=== PATIENT | female | born 1950 | race Caucasian/White ===

== ENCOUNTER 2019-07-02 10:44 | Inpatient (IN) ==
[2019-07-02] MEDS ORDERED: SODIUM CHLORIDE 0.9% 500 ML IV ONE (10:56)
--- NOTE | 2019-07-02 11:21 | XRay Report ---
XR chest 1V portable CLINICAL HISTORY: SEPSIS dyspnea COMPARISON STUDY: No previous studies for comparison. FINDINGS: The bones soft tissues and hemidiaphragms are normal. The cardiomediastinal silhouette is n ormal. The lungs are clear. The pulmonary vasculature is normal. IMPRESSION: Negative chest. ACT 112: Negative or not required by law. The above report was generated using voice recognition software. It may contain grammatical, syntax or spelling errors. Electronically signed by: Florentino Breaux M.D. 07/02/2019 11:19 AM
[2019-07-02 12:00] LABS: Basophils # (auto) 0.02 K/uL (0-0.2); Basophils % (auto) 0.3 %; Eosinophils % (auto) 1.7 %; Hemoglobin 11.5 g/dL (12.0-16.0); Immature Granulocytes # (auto) 0.01 K/uL (0.00-0.02); Immature Granulocytes % (auto) 0.2 %; Lymphocytes # (auto) 0.68 K/uL (1.2-3.4); Lymphocytes % (auto) 11.6 %; Mean Corpuscular Hemoglobin 28.5 pg (25-34); Mean Corpuscular Hgb Conc 31.9 g/dL (32-36); Mean Corpuscular Volume 89.3 fL (80-100); Mean Platelet Volume 10.5 fL (7.4-10.4); Monocytes % (auto) 6.8 %; Neutrophils # (auto) 4.63 K/uL (1.4-6.5); Neutrophils % (auto) 79.4 %; Platelet Count 268 K/uL (130-400); RDW Coefficient of Variation 16.6 % (11.5-14.5); RDW Standard Deviation 54.9 fL (36.4-46.3); Red Blood Count 4.03 M/uL (4.2-5.4); White Blood Count 5.84 K/uL (4.8-10.8)
[2019-07-02 12:10] LABS: INR 1.2 (0.9-1.1); Partial Thromboplastin Time 26.6 Seconds (21.0-31.0); Prothrombin Time 11.7 Seconds (9.0-12.0)
[2019-07-02 12:21] LABS: Alanine Aminotransferase 17 U/L (12-78); Albumin Level 2.8 gm/dl (3.4-5.0); Aspartate Aminotransferase 18 U/L (15-37); BUN Creatinine Ratio 10.7 (10-20); Blood Urea Nitrogen 11 mg/dl (7-18); C Reactive Protein 0.99 mg/dl (0-0.29); Calcium 9.3 mg/dl (8.5-10.1); Carbon Dioxide 24 mmol/L (21-32); Chloride 110 mmol/L (98-107); Creatinine Clr Calc Pharmacy 48.1 ml/min; Est GFR (African American) 63.5; Est GFR (Non-African American) 54.8; Glucose 98 mg/dl (70-99); Magnesium 1.7 mg/dl (1.8-2.4); Potassium 4.3 mmol/L (3.5-5.1); Sodium 141 mmol/L (136-145)
[2019-07-02 12:26] LABS: Albumin Globulin Ratio 0.8 (0.9-2); Alkaline Phosphatase 100 U/L (45-117); Bilirubin,Total 0.4 mg/dl (0.2-1); Globulin 3.6 gm/dl (2.5-4.0); Total Protein 6.4 gm/dl (6.4-8.2); Troponin I < 0.015 ng/ml (0-0.045)
[2019-07-02 12:45] LABS: Appearance Urine Cloudy (Clear); Bacteria Urine Automated 4+ (Negative); Bilirubin Urine Negative (Negative); Blood Urine Negative (Negative); Color Urine Yellow; Epithelial Cell Urine Auto >30 /lpf (0-5); Glucose Urine UA Negative (Negative); Ketones Urine Negative (Negative); Leukocyte Esterase Urine 2+ (Negative); Nitrite Urine Positive (Negative); Protein Urine 1+ (Negative); Specific Gravity Urine 1.018 (1.000-1.030); Urobilinogen Urine Negative (Negative); WBC Urine Automated >30 /hpf (0-5)
[2019-07-02 13:08] LABS: Cast Urine Automated 0 /lpf (0-5)
[2019-07-02] MEDS ORDERED: cefTRIAXone SODIUM 1,000 MG/50 ML BAG IV STA (13:16)
[2019-07-02] MEDS ORDERED: SODIUM CHLORIDE 0.9% 1000ML 500 ML IV ONE (13:16)
[2019-07-02] MEDS ORDERED: PIPERACILL/TAZOBAC CONSULT ACTIVE PRN (13:25)
[2019-07-02] MEDS ORDERED: PIPERACILLIN/TAZOBACTAM 4.5 GM/120 ML BAG IV ONE (13:25)
--- NOTE | 2019-07-02 15:04 | History & Physical Report ---
Date of Service July 02, 2019 Assessment & Plan (1) Hypotension: Pt is 68 y/o F with PMH multiple myeloma, HTN, dyslipidemia, asthma, nocturnal hypoxia, MOHAN, migraines, depression, anxiety, h/o palpitations, sinus tachycardia presented to ER from cardiology office for hypotension. Today in cardiology office initial BP was 110/82 then 86/50 and pt was referred to ER. Pt reports chronic weakness, dizziness with sitting/standing and denies worsening. Poor oral intake In ER initial BP: 110/70 down to 96/67 up to 108/80. Initial P: 100 down to 85. R: 16, 98% on RA. DDX: dehydration, sepsis -In ER received 2L NSS -Current BP 105/73 -IVF -Monitor BP -Encourage oral fluid intake (2) Elevated lactic acid level: Denies known fever. Reports chronic chills. Denies urinary symptoms, cough, vomiting. Dx c-diff at outside hospital one week ago. In ER lactate: 2.8 CXR: no acute findings Possible UTI on UA -Received 2L NSS, Zosyn in ER -IVF -Trend lactate -Blood cultures, urine culture pending -Zosyn -CBC, BMP in am (3) Possible urinary tract infection: Possible UTI on UA. Pt asymptomatic -Urine culture pending -Zosyn for now (4) Weakness: Chronic weakness. Uses rolling walker to ambulate. Denies recent falls. -PT/OT eval (5) Palpitations: H/O palpitations and sinus tachycardia Current sinus rhythm and pulse in 80's -Continue metoprolol with BP holding parameters (6) Leg edema: Right leg edema greater than left -Obtain venous doppler to R/O DVT (7) Hypomagnesemia: Magnesium: 1.7 -Replace and monitor (8) C. difficile diarrhea: Reportedly diagnosed with C-diff at [facility] during recent admission 06/25/19 Reports decreased diarrhea past 5 days with one episode yesterday. Pt unsure if she is taking her oral vancomycin -Vancomycin 125mg po QID (9) Multiple myeloma: H/O Multiple myeloma. Follows with Dr Maldonado oncology [place] Thinks last chemo was one month ago -Acyclovir, pt thinks still taking -Monitor CBC, BMP (10) MOHAN (obstructive sleep apnea): (11) Nocturnal hypoxemia: Noncompliant with CPAP HS -Continue oxygen 3L nasal cannula HS (12) Asthma: No acute flare -Continue home inhalers, albuterol prn -Continue Singulair DVT Prophylaxis -Lovenox SQ Full ode as per discussion with pt Follows with Dr Herrera - [facility] for routine care Pt was seen and care coordinated with Dr Fitzgerald. See addendum History of Present Illness Chief Complaint: Hypotension Primary Care Provider: Dr Herrera Pt is 68 y/o F with PMH multiple myeloma, HTN, dyslipidemia, asthma, nocturnal hypoxia, MOHAN, migraines, depression, anxiety, h/o palpitations, sinus tachycardia presented to ER from cardiology office for hypotension. Pt was being seen at cardiology office for h/o sinus tachycardia and palpitations. It is reported that at her last oncology visit it was noted that her pulse was 120. Pt denies any recent palpations. Today in cardiology office initial BP was 110/82 then 86/50 and pt was referred to ER. Pt states chronic nausea which worsens with eating. Reports chronic abdominal pain, also worse with eating. Denies any increased abdominal pain. She admits has not been eating or drinking much for past couple of months since starting chemo. Reports only had sip juice to take her morning medications today. Pt reports chronic weakness, fatigue and dizziness worse with sitting up or standing. Denies syncope. Uses walker to ambulate and reports chronic SOB with ambulation and chronic leg weakness with ambulation. Denies increased weakness, fatigue, SOB, dizziness or nausea. Denies falls or syncope. She reports chronic intermittent chills for past couple of months. Denies any known fevers. It is reported that pt had hospitalization at [facility] in 03/2019 for BARBRA, hypercalcemia, hypokalemia, anemia thought secondary to chemo. Pt reports received 1 unit PRBCs at that time Pt also reports hospitalization at [facility] on 06/25/19-06/27/19 for dehydration, diarrhea. Pt reports was diagnosed with C-Diff and started on Vancomycin. Pt is unsure if she is still taking Vancomycin. She reports that she was discharged at her request secondary to wanting to be home for [place]. Pt also reports hospitalization at [facility] for dehydration and anemia and reports receiving 2 units PRBCs during that admission. Thinks this was in 05/2019. Pt states diarrhea has decreased and has had 1-2 episodes loose stools a day. Had 1 episode diarrhea yesterday and none yet today. Denies hematochezia. Pt states today noticed right leg seems bigger than left. Reports pain to bilateral calves. Denies increased SOB, CP. Denies diaphoresis, SINHA, vision changes, neck pain, CP, orthopnea, cough, sore throat, choking, otalgia, rhinorrhea, paresthesias, rashes, urinary symptoms. Allergies Allergy/AdvReac Type Severity Reaction Status Date / Time No Known Allergies Allergy Mild ? Unverified 07/02/19 12:12 Home Medications Home Medications Medication Instructions Recorded Confirmed Type acyclovir 400 mg PO DAILY 07/02/19 07/02/19 History albuterol sulfate 1 puff INHALATION Q6H PRN 07/02/19 07/02/19 History aspirin 81 mg PO QAM 07/02/19 07/02/19 History atorvastatin 40 mg PO DAILY 07/02/19 07/02/19 History ferrous gluconate 324 mg PO DAILY 07/02/19 07/02/19 History fluoxetine 40 mg PO QAM 07/02/19 07/02/19 History fluticasone furoate-vilanterol 1 inh INHALATION DAILY 07/02/19 07/02/19 History [Breo Ellipta] gabapentin 100 mg PO TID 07/02/19 07/02/19 History metoprolol succinate 12.5 mg PO QAM 07/02/19 07/02/19 History mirtazapine 15 mg PO HS 07/02/19 07/02/19 History montelukast 10 mg PO HS 07/02/19 07/02/19 History omeprazole 20 mg PO DAILY 07/02/19 07/02/19 History potassium chloride 20 meq PO BID 07/02/19 07/02/19 History tramadol 50 mg PO Q6H PRN 07/02/19 07/02/19 History vancomycin 125 mg PO QID 07/02/19 07/02/19 History Past Med/Surg History Medical History (Updated 07/02/19 @ 15:34 by Yesica Vora PA-C) Anemia Asthma Depression with anxiety Dyslipidemia Encounter for blood transfusion HTN (hypertension) Migraine Multiple myeloma Nocturnal hypoxemia MOHAN (obstructive sleep apnea) Palpitations Sinus tachycardia Tachycardia Surgical History H/O cataract removal with insertion of prosthetic lens S/P cholecystectomy S/P tubal ligation Family History (Updated 07/02/19 @ 15:22 by Yesica Vora PA-C) Other Cancer Hypertension Social History (Updated 07/02/19 @ 15:22 by Yesica Vora PA-C) Preferred Language: French Communication Ability: Effective current occupational status: retired Feels Safe at Home: Yes Smoking Status: Former smoker Hx Alcohol Use: No Hx Substance Use: No Review of Systems Review of Systems: All systems reviewed & are unremarkable except as noted in HPI & below Physical Exam Physical Exam: General: chronic ill appearing, appears older than stated age, no acute distress, overweight Head: normocephalic, atraumatic Eyes: PERRL, EOM's intact, conjunctiva non-injected, anicteric ENT: normal inspection external ears, nose, mucous membranes mildly dry Neck: supple, trachea midline Lungs: clear, no respiratory distress, no wheezing/rhonchi/rales CV: RRR, no murmur Abd: normal BS, soft, non-tender Ext: no cyanosis, Right leg edema greater than left leg, no leg erythema, bilateral calf tenderness to palpation Neuro: A&O x 3, no focal deficits noted, normal affect Skin: warm, dry Results & Data Vital Signs (Past 12 Hours) Vital Signs Temp Pulse Pulse Resp BP BP Pulse Ox 07/02/19 14:33 85 21 105/73 96 07/02/19 14:12 85 17 94/68 L 96 07/02/19 13:33 85 15 108/80 97 07/02/19 12:30 75 19 125/56 L 97 07/02/19 12:17 80 20 102/50 L 93 07/02/19 12:16 81 17 102/50 L 94 07/02/19 11:13 96 07/02/19 11:06 87 16 96/67 L 97 07/02/19 10:47 36.4 C L 100 H 16 110/70 98 Laboratory Results Short CBC 07/02/19 Range/Units 11:45 WBC 5.84 (4.8-10.8) K/uL Hgb 11.5 L (12.0-16.0) g/dL Hct 36.0 L (37-47) % Plt Count 268 (130-400) K/uL BMP 07/02/19 11:45 Sodium 141 Potassium 4.3 Chloride 110 H Carbon Dioxide 24 BUN 11 Creatinine 1.04 Glucose 98 Calcium 9.3 Cardiac Enzymes 07/02/19 Range/Units 11:45 Troponin I < 0.015 (0-0.045) ng/ml Liver Function 07/02/19 Range/Units 11:45 Total Bilirubin 0.4 (0.2-1) mg/dl AST 18 (15-37) U/L ALT 17 (12-78) U/L Alkaline Phosphatase 100 (45-117) U/L Albumin 2.8 L (3.4-5.0) gm/dl Urine 07/02/19 Range/Units 11:46 Urine Color Yellow Urine Appearance Cloudy A (Clear) Urine pH 7.0 (4.5-7.5) Ur Specific [place] 1.018 (1.000-1.030) Urine Protein 1+ H (Negative) Urine Glucose (UA) Negative (Negative) Diagnostic Findings CXR: IMPRESSION: Negative chest. ECG Rate (beats per minute): 86 Rhythm: sinus rhythm Code Status & VTE Plan VTE Prophylaxis Plan VTE Prophylaxis will be ordered: Yes Supervising Physician Co-Signing Physician Notes HISTORY: Record reviewed. Patient interviewed and examined in ED. Care coordinated with Yesica Vora PA-C. Please refer to her documentation for complete history. Briefly, 68 YO female with history of multiple myeloma. Per her history, extensive skeletal involvement. Was receiving chemotherapy (pt does not know meds), but discontinued because of side effects. Recent C diff colitis with improving symptoms on vancomycin. Seen in Cardiology clinic today and found to be hypotensive. Referred to ED for further evaluation and management. Denies fever, sinus symptoms, cough, dysuria. Diarrhea essentially resolved. EXAM: General- no distress; appears to be chronically ill Lungs- clear to auscultation; no respiratory distress Cardiovascular- RRR; no murmur; no gallop; no JVD; pretibial and pedal edema R > L Abdomen- + bowel sounds, soft, nontender Extremities- no cyanosis; no calf tenderness Neuro- alert, oriented Skin- warm & dry DATA: Hemoglobin 11.5, white count 5840, platelet count 268,000. Sodium 141, potassium 4.3, chloride 110, CO2 24, BUN 11, creatinine 1.04, random glucose 98, magnesium 1.7. LFTs normal. Serum lactate 2.8. Procalcitonin less than 0.05. UA demonstrates leukocyte esterase, nitrites, many WBCs, 5-10 RBCs, many epithelial cells, 4+ bacteria. Other lab studies as noted. Chest x-ray reviewed by the undersigned and formally interpreted by Radiology. Elevated right hemidiaphragm. No infiltrates, effusions, CHF. EKG performed at 1110 reviewed and demonstrated normal sinus rhythm at 90 / minute, baseline artifact, no acute ST or T wave abnormalities.. ASSESSMENT AND PLAN: Systolic BP's in ED 96-125. Does not meet criteria for SIRS / sepsis per current CMS guidelines (but would meet criteria per sepsis-2 definition). May have volume depletion from recent / resolving C diff diarrhea (although BUN and creatinine are normal). Adrenal insufficiency unlikely with normal Na & K. UA suggests possible UTI. Elevated lactate of 2.8 suggests possible sepsis, but procalcitonin normal. Blood and urine cultures obtained. Started on broad spectrum antibiotic coverage with piperacillin / tazobactam. Check repeat lactate within 6 hrs of presentation. No need for aggressive fluid resuscitation per ED vital signs and lactate < 4. Continue vancomycin for resolving C diff. Ongoing management of multiple myeloma per Hematology / Oncology. Continue usual analgesics. Poor functional status. PT / OT evals. Old records requested for more complete background info. Please refer to PAT Vora's documentation for discussion of other issues.
--- NOTE | 2019-07-02 16:32 | Ultrasound Report ---
BILATERAL LOWER EXTREMITY VENOUS DOPPLER HISTORY: Acute pain and swelling of the bilateral lower extremities edema right >left; Hx multiple m yeloma COMPARISON STUDY: None. FINDINGS: There is normal compressibility, flow, and augmentation within the left lower extremity ramin p venous system. Linear partially occlusive thrombus of the distal right popliteal vein and peroneal veins. No additional deep venous thrombosis of the right lower extremity. IMPRESSION: 1. Partially occlusive deep venous thrombosis of the right popliteal and peroneal veins. 2. No sonographic evidence of left lower extremity deep venous thrombosis. ACT 112: Negative or not required by law. Electronically signed by: Fernie Shipman M.D. 07/02/2019 4:30 PM
[2019-07-02] MEDS ORDERED: ENOXAPARIN INJ 40 MG/0.4 ML SYR SQ SCH (16:42)
[2019-07-02] MEDS ORDERED: ALBUTEROL HFA 8 GM INHALER INH PRN (16:42)
[2019-07-02] MEDS ORDERED: MAGNESIUM SULFATE / D5W 1 GM/100 ML BAG IV ONE (17:00)
[2019-07-02] MEDS ORDERED: NYSTATIN POWDER 15GM BTL EXT PRN (17:20)
[2019-07-02] MEDS: SODIUM CHLORIDE 0.9% 1000ML 1,000 ML IV SCH (17:22)
--- NOTE | 2019-07-02 17:54 | Emergency Department Note ---
Entered by Opal Slater acting as a scribe for History of Present Illness General Chief complaint: Hypotension Stated complaint: LOW BLOOD PRESSURE, SENT BY Time Seen by Provider: 07/02/19 10:50 Source: patient and family (daughter) History of Present Illness Onset (ago): hour(s) (this morning) Location: head Pain Consistency: + other (episode) Quality: + other (hypotension) Associated symptoms: + denies other symptoms (fever, abdominal pain, vomiting, chest pain or black or bloody stools) and + other (shortness of breath lying flat or with exertion, frequent urination, swelling and pain in legs) The patient is a 68 year old female that is presenting to the Emergency Room with complaints of an episode of hypotension that was found while the patient was at her manager lpn appointment this morning. The patients daughter reports that the patient was seen by Dr. Muñiz, Cardiology, and was found to have a blood pressure 88/50. Her daughter notes that the patients blood pressure was 110 systolic just prior to that reading. Her daughter states that the patient was referred to the ED as the manager lpn was concerned for anemia. The patient denies any fever, abdominal pain, vomiting, chest pain or black or bloody stools. She states that she has some swelling and pain in her legs. She endorses some shortness of breath with lying flat or with exertion. The patient notes that she has been urinating more frequently despite a low fluid intake. Her daughter reports that the patient has a history of multiple myeloma diagnosed in 03/2019 and is being followed by an oncologist in [place]. Her daughter notes that the patient has been receiving chemotherapy and takes medications for this. The patient states that her last chemotherapy treatment was 2 months ago. Her daughter reports that the patient has received blood transfusions in the past. Her daughter notes that the patient is followed by cardiology for intermittent tachycardia found during an oncology appointment. The patient reports that she has been feeling ill intermittently since starting her chemotherapy treatment. She denies any history of hypertension or diabetes. She notes that she has a history of cataract removal, cholecystectomy, and tubal ligation. The patient states that she has a recent history of C. difficle that she is currently being treated for. She denies any diarrhea today but notes that she had an episode last night. She denies smoking any tobacco. She states that she is followed by Dr. Herrera, PCP, but notes that she has not been to an appointment recently. Home Medications Home Medications Medication Instructions Recorded Confirmed Type acyclovir 400 mg PO DAILY 07/02/19 07/02/19 History albuterol sulfate 1 puff INHALATION Q6H PRN 07/02/19 07/02/19 History aspirin 81 mg PO QAM 07/02/19 07/02/19 History atorvastatin 40 mg PO DAILY 07/02/19 07/02/19 History ferrous gluconate 324 mg PO DAILY 07/02/19 07/02/19 History fluoxetine 40 mg PO QAM 07/02/19 07/02/19 History fluticasone furoate-vilanterol 1 inh INHALATION DAILY 07/02/19 07/02/19 History [Breo Ellipta] gabapentin 100 mg PO TID 07/02/19 07/02/19 History metoprolol succinate 12.5 mg PO QAM 07/02/19 07/02/19 History mirtazapine 15 mg PO HS 07/02/19 07/02/19 History montelukast 10 mg PO HS 07/02/19 07/02/19 History omeprazole 20 mg PO DAILY 07/02/19 07/02/19 History potassium chloride 20 meq PO BID 07/02/19 07/02/19 History tramadol 50 mg PO Q6H PRN 07/02/19 07/02/19 History vancomycin 125 mg PO QID 07/02/19 07/02/19 History Allergies Allergy/AdvReac Type Severity Reaction Status Date / Time No Known Allergies Allergy Mild ? Unverified 07/02/19 12:12 Past Med/Surg History Medical History (Updated 07/02/19 @ 15:34 by Yesica Vora PA-C) Anemia Asthma Depression with anxiety Dyslipidemia Encounter for blood transfusion HTN (hypertension) Migraine Multiple myeloma Nocturnal hypoxemia MOHAN (obstructive sleep apnea) Palpitations Sinus tachycardia Tachycardia Surgical History H/O cataract removal with insertion of prosthetic lens S/P cholecystectomy S/P tubal ligation Family History (Updated 07/02/19 @ 15:22 by Yesica Vora PA-C) Other Cancer Hypertension Social History (Updated 07/02/19 @ 15:22 by Yesica Vora PA-C) Preferred Language: Latvian Communication Ability: Effective Sales Record Clerk Required: No Beliefs That Will Affect Care: None Current Living Situation: Spouse current occupational status: retired Other Information That Helps Us Care for You: No Feels Safe at Home: Yes Safety Concerns: Feels Safe At This Time Smoking Status: Former smoker Hx Alcohol Use: No Hx Substance Use: No Review of Systems See HPI for pertinent positives & negatives. and A total of 10 systems reviewed and were otherwise negative Physical Exam Vital Signs Vital Signs - 24 hr 07/02/19 10:47 07/02/19 11:06 07/02/19 11:13 Temperature 36.4 C L Temperature Source Oral Pulse Rate 100 H 87 Pulse Rate [Left] Pulse Rate from SpO2 Sensor 87 Pulse Rhythm [Left] Respiratory Rate 16 16 Respiratory Effort / Characteristics Respiratory Depth Normal Respiratory Pattern Blood Pressure 110/70 96/67 L Blood Pressure [Left Arm] Blood Pressure Mean 83 72 Blood Pressure Mean [Left Arm] Pulse Oximetry 98 97 96 Oxygen Delivery Method Room Air Sepsis Recent Fever Within 48 Hours No Sepsis New/Unexplained Change in Mental Status No Sepsis Action Taken by Nursing No Action Required 07/02/19 12:16 07/02/19 12:17 07/02/19 12:30 Temperature Temperature Source Pulse Rate 80 75 Pulse Rate [Left] 81 Pulse Rate from SpO2 Sensor 81 78 Pulse Rhythm [Left] Regular Respiratory Rate 17 20 19 Respiratory Effort / Characteristics Non-Labored Respiratory Depth Normal Respiratory Pattern Regular Blood Pressure 102/50 L 125/56 L Blood Pressure [Left Arm] 102/50 L Blood Pressure Mean 81 94 Blood Pressure Mean [Left Arm] 67 Pulse Oximetry 94 93 97 Oxygen Delivery Method Room Air Sepsis Recent Fever Within 48 Hours Sepsis New/Unexplained Change in Mental Status Sepsis Action Taken by Nursing 07/02/19 13:33 07/02/19 14:12 07/02/19 14:33 Temperature Temperature Source Pulse Rate 85 85 85 Pulse Rate [Left] Pulse Rate from SpO2 Sensor 85 85 84 Pulse Rhythm [Left] Respiratory Rate 15 17 21 Respiratory Effort / Characteristics Respiratory Depth Respiratory Pattern Blood Pressure 108/80 94/68 L 105/73 Blood Pressure [Left Arm] Blood Pressure Mean 91 79 79 Blood Pressure Mean [Left Arm] Pulse Oximetry 97 96 96 Oxygen Delivery Method Sepsis Recent Fever Within 48 Hours Sepsis New/Unexplained Change in Mental Status Sepsis Action Taken by Nursing GENERAL: Patient is awake, alert, and in no acute distress. Frail appearing. Does not appear to be uncomfortable. EYES: The conjunctivae are clear. The pupils are round and reactive. EARS, NOSE, MOUTH AND THROAT: The nose is without any evidence of any deformity. Mucous membranes are moist.Tongue is midline NECK: The neck is nontender and supple. RESPIRATORY: Diminished breath sounds bilaterally with rales at both bases. No tachypnea or conversational dyspnea noted. CARDIOVASCULAR: Tachycardic rate but regular rhythm. No definite murmur noted. GASTROINTESTINAL: The abdomen is soft. Bowel sounds are present in all quadrants. Abdomen is nontender. MUSCULOSKELETAL/EXTREMITIES: There is no evidence of gross deformity. Full range of motion is noted in the hips and shoulders. SKIN: There is no obvious evidence of any rash. There are no petechiae, pallor or cyanosis noted. Trace pedal edema bilaterally. NEUROLOGIC: Patient is awake alert and oriented x3. Generalized weakness. Course Course 1053:The patient was evaluated in room C09. A complete history and physical examination was performed. 1325: Upon reevaluation, the patient is resting comfortably. I discussed laboratory and radiographic results with the patient. She verbalized agreement of the treatment plan. The patient will be evaluated for further management and care. 1338: I discussed the patients case with NATHALIE Perry, who will evaluate the patient for further management and care with Dr. Fitzgerald as the attending physician. Administered Medications Sodium Chloride (Nss 1000ml) 1,000 mls @ 100 mls/hr IV .Q10H ОЛЕГ Stop: 07/03/19 12:41 Last Admin: 07/02/19 17:22 Dose: 100 mls/hr Documented by: [id number] Magnesium Sulfate/Dextrose (Magnesium Sulfate / D5w) 1 gm in 100 mls @ 100 mls/hr IV ONE ONE Stop: 07/02/19 17:59 Last Admin: 07/02/19 17:22 Dose: 100 mls/hr Documented by: [id number] Discontinued Medications Enoxaparin Sodium (Lovenox) 40 mg SQ Q24H ОЛЕГ Stop: 08/01/19 16:41 Last Admin: 07/02/19 17:30 Dose: Not Given Documented by: [id number] Sodium Chloride (Nss) 500 mls @ 999 mls/hr IV .Q31M ONE Stop: 07/02/19 11:26 Last Infusion: 07/02/19 13:24 Dose: 0 mls/hr Documented by: [id number] Admin: 07/02/19 12:30 Dose: 999 mls/hr Documented by: [id number] Ceftriaxone Sodium (Rocephin) 1,000 mg in 50 mls @ 100 mls/hr IV NOW STA Stop: 07/02/19 13:45 Last Admin: 07/02/19 14:03 Dose: Not Given Documented by: [id number] Sodium Chloride (Nss 1000ml) 500 mls @ 999 mls/hr IV .Q31M ONE Stop: 07/02/19 13:46 Last Infusion: 07/02/19 14:03 Dose: 0 mls/hr Documented by: [id number] Admin: 07/02/19 13:31 Dose: 999 mls/hr Documented by: [id number] Piperacillin Sod/Tazobactam Sod (Zosyn) 4.5 gm in 120 mls @ 240 mls/hr IV NOW ONE Stop: 07/02/19 13:54 Last Infusion: 07/02/19 14:41 Dose: 0 mls/hr Documented by: [id number] Admin: 07/02/19 14:08 Dose: 240 mls/hr Documented by: [id number] Medical Decision Making Differential Diagnosis Differential Diagnosis includes but is not limited to dehydration, stroke, anemia, hypoglycemia, hyponatremia, hypernatremia, urinary tract infection, pneumonia, bronchitis, sepsis, gastroenteritis, additional abdominal pathology, metabolic abnormalities and infections. Medical Records Attestation: I reviewed the patient's medical records. Home Medications Current Medication List: was personally reviewed by me Laboratory Data Attestation: I reviewed the patient's lab results. Result diagrams: 07/02/19 11:45 07/02/19 11:45 Lab Results 07/02/19 07/02/19 07/02/19 Range/Units 11:45 11:45 11:45 WBC 5.84 (4.8-10.8) K/uL RBC 4.03 L (4.2-5.4) M/uL Hgb 11.5 L (12.0-16.0) g/dL Hct 36.0 L (37-47) % MCV 89.3 (80-100) fL MCH 28.5 (25-34) pg MCHC 31.9 L (32-36) g/dL RDW Std Deviation 54.9 H (36.4-46.3) fL RDW Coeff of Alejandro 16.6 H (11.5-14.5) % Plt Count 268 (130-400) K/uL MPV 10.5 H (7.4-10.4) fL Immature Gran % (Auto) 0.2 % Neut % (Auto) 79.4 % Lymph % (Auto) 11.6 % [place] % (Auto) 6.8 % Eos % (Auto) 1.7 % Baso % (Auto) 0.3 % Immature Gran # (Auto) 0.01 (0.00-0.02) K/uL Neut # (Auto) 4.63 (1.4-6.5) K/uL Lymph # (Auto) 0.68 L (1.2-3.4) K/uL [place] # (Auto) 0.40 (0.11-0.59) K/uL Eos # (Auto) 0.10 (0-0.5) K/uL Baso # (Auto) 0.02 (0-0.2) K/uL ESR 57 H (0-21) mm/hr PT (9.0-12.0) Seconds INR (0.9-1.1) APTT (21.0-31.0) Seconds PTT Ratio Sodium (136-145) mmol/L Potassium (3.5-5.1) mmol/L Chloride (98-107) mmol/L Carbon Dioxide (21-32) mmol/L Anion Gap (3-11) BUN (7-18) mg/dl Creatinine (0.6-1.2) mg/dl Est Cr Clr Drug Dosing ml/min Est GFR ( Amer) Est GFR (Non-Af Amer) BUN/Creatinine Ratio (10-20) Glucose (70-99) mg/dl Lactate (0.4-2.0) mmol/L Calcium (8.5-10.1) mg/dl Magnesium (1.8-2.4) mg/dl Total Bilirubin (0.2-1) mg/dl AST (15-37) U/L ALT (12-78) U/L Alkaline Phosphatase (45-117) U/L Troponin I (0-0.045) ng/ml C-Reactive Protein (0-0.29) mg/dl Total Protein (6.4-8.2) gm/dl Albumin (3.4-5.0) gm/dl Globulin (2.5-4.0) gm/dl Albumin/Globulin Ratio (0.9-2) Procalcitonin < 0.05 (0-0.5) ng/ml Urine Color Urine Appearance (Clear) Urine pH (4.5-7.5) Ur Specific Gardiner (1.000-1.030) Urine Protein (Negative) Urine Glucose (UA) (Negative) Urine Ketones (Negative) Urine Blood (Negative) Urine Nitrite (Negative) Urine Bilirubin (Negative) Urine Urobilinogen (Negative) Ur Leukocyte Esterase (Negative) Urine WBC (Auto) (0-5) /hpf Urine RBC (Auto) (0-4) /hpf U Hyaline Cast (Auto) (0-5) /lpf U Epithel Cells (Auto) (0-5) /lpf Urine Bacteria (Auto) (Negative) Urine Yeast 07/02/19 07/02/19 07/02/19 Range/Units 11:45 11:45 11:45 WBC (4.8-10.8) K/uL RBC (4.2-5.4) M/uL Hgb (12.0-16.0) g/dL Hct (37-47) % MCV (80-100) fL MCH (25-34) pg MCHC (32-36) g/dL RDW Std Deviation (36.4-46.3) fL RDW Coeff of Alejandro (11.5-14.5) % Plt Count (130-400) K/uL MPV (7.4-10.4) fL Immature Gran % (Auto) % Neut % (Auto) % Lymph % (Auto) % [place] % (Auto) % Eos % (Auto) % Baso % (Auto) % Immature Gran # (Auto) (0.00-0.02) K/uL Neut # (Auto) (1.4-6.5) K/uL Lymph # (Auto) (1.2-3.4) K/uL [place] # (Auto) (0.11-0.59) K/uL Eos # (Auto) (0-0.5) K/uL Baso # (Auto) (0-0.2) K/uL ESR (0-21) mm/hr PT 11.7 (9.0-12.0) Seconds INR 1.2 H (0.9-1.1) APTT 26.6 (21.0-31.0) Seconds PTT Ratio 1.0 Sodium 141 (136-145) mmol/L Potassium 4.3 (3.5-5.1) mmol/L Chloride 110 H (98-107) mmol/L Carbon Dioxide 24 (21-32) mmol/L Anion Gap 7.0 (3-11) BUN 11 (7-18) mg/dl Creatinine 1.04 (0.6-1.2) mg/dl Est Cr Clr Drug Dosing 48.1 ml/min Est GFR ( Amer) 63.5 Est GFR (Non-Af Amer) 54.8 BUN/Creatinine Ratio 10.7 (10-20) Glucose 98 (70-99) mg/dl Lactate 2.8 H* (0.4-2.0) mmol/L Calcium 9.3 (8.5-10.1) mg/dl Magnesium 1.7 L (1.8-2.4) mg/dl Total Bilirubin 0.4 (0.2-1) mg/dl AST 18 (15-37) U/L ALT 17 (12-78) U/L Alkaline Phosphatase 100 (45-117) U/L Troponin I < 0.015 (0-0.045) ng/ml C-Reactive Protein 0.99 H (0-0.29) mg/dl Total Protein 6.4 (6.4-8.2) gm/dl Albumin 2.8 L (3.4-5.0) gm/dl Globulin 3.6 (2.5-4.0) gm/dl Albumin/Globulin Ratio 0.8 L (0.9-2) Procalcitonin (0-0.5) ng/ml Urine Color Urine Appearance (Clear) Urine pH (4.5-7.5) Ur Specific Gardiner (1.000-1.030) Urine Protein (Negative) Urine Glucose (UA) (Negative) Urine Ketones (Negative) Urine Blood (Negative) Urine Nitrite (Negative) Urine Bilirubin (Negative) Urine Urobilinogen (Negative) Ur Leukocyte Esterase (Negative) Urine WBC (Auto) (0-5) /hpf Urine RBC (Auto) (0-4) /hpf U Hyaline Cast (Auto) (0-5) /lpf U Epithel Cells (Auto) (0-5) /lpf Urine Bacteria (Auto) (Negative) Urine Yeast 07/02/19 Range/Units 11:46 WBC (4.8-10.8) K/uL RBC (4.2-5.4) M/uL Hgb (12.0-16.0) g/dL Hct (37-47) % MCV (80-100) fL MCH (25-34) pg MCHC (32-36) g/dL RDW Std Deviation (36.4-46.3) fL RDW Coeff of Alejandro (11.5-14.5) % Plt Count (130-400) K/uL MPV (7.4-10.4) fL Immature Gran % (Auto) % Neut % (Auto) % Lymph % (Auto) % [place] % (Auto) % Eos % (Auto) % Baso % (Auto) % Immature Gran # (Auto) (0.00-0.02) K/uL Neut # (Auto) (1.4-6.5) K/uL Lymph # (Auto) (1.2-3.4) K/uL [place] # (Auto) (0.11-0.59) K/uL Eos # (Auto) (0-0.5) K/uL Baso # (Auto) (0-0.2) K/uL ESR (0-21) mm/hr PT (9.0-12.0) Seconds INR (0.9-1.1) APTT (21.0-31.0) Seconds PTT Ratio Sodium (136-145) mmol/L Potassium (3.5-5.1) mmol/L Chloride (98-107) mmol/L Carbon Dioxide (21-32) mmol/L Anion Gap (3-11) BUN (7-18) mg/dl Creatinine (0.6-1.2) mg/dl Est Cr Clr Drug Dosing ml/min Est GFR ( Amer) Est GFR (Non-Af Amer) BUN/Creatinine Ratio (10-20) Glucose (70-99) mg/dl Lactate (0.4-2.0) mmol/L Calcium (8.5-10.1) mg/dl Magnesium (1.8-2.4) mg/dl Total Bilirubin (0.2-1) mg/dl AST (15-37) U/L ALT (12-78) U/L Alkaline Phosphatase (45-117) U/L Troponin I (0-0.045) ng/ml C-Reactive Protein (0-0.29) mg/dl Total Protein (6.4-8.2) gm/dl Albumin (3.4-5.0) gm/dl Globulin (2.5-4.0) gm/dl Albumin/Globulin Ratio (0.9-2) Procalcitonin (0-0.5) ng/ml Urine Color Yellow Urine Appearance Cloudy A (Clear) Urine pH 7.0 (4.5-7.5) Ur Specific Gardiner 1.018 (1.000-1.030) Urine Protein 1+ H (Negative) Urine Glucose (UA) Negative (Negative) Urine Ketones Negative (Negative) Urine Blood Negative (Negative) Urine Nitrite Positive A (Negative) Urine Bilirubin Negative (Negative) Urine Urobilinogen Negative (Negative) Ur Leukocyte Esterase 2+ H (Negative) Urine WBC (Auto) >30 H (0-5) /hpf Urine RBC (Auto) 5-10 H (0-4) /hpf U Hyaline Cast (Auto) 0 (0-5) /lpf U Epithel Cells (Auto) >30 H (0-5) /lpf Urine Bacteria (Auto) 4+ H (Negative) Urine Yeast Not Reportable Imaging Data Radiologist's Impression: Radiology results as stated below per my review and the radiologist's interpretation: XR chest 1V portable CLINICAL HISTORY: SEPSIS dyspnea COMPARISON STUDY: No previous studies for comparison. FINDINGS: The bones soft tissues and hemidiaphragms are normal. The cardiomediastinal silhouette is normal. The lungs are clear. The pulmonary vasculature is normal. IMPRESSION: Negative chest. ACT 112: Negative or not required by law. The above report was generated using voice recognition software. It may contain grammatical, syntax or spelling errors. Electronically signed by: Florentino Breaux M.D. 07/02/2019 11:19 AM ECG Data Attestation: I personally reviewed and interpreted this ECG as follows: Indication: + weakness Rate (beats per minute): 86 Rhythm: + normal sinus ECG ST segments: no ST depression and no ST elevation ECG Findings: no PACs and no PVCs Comparison ECG Date: no prior available Blood Pressure Blood Pressure Findings: Normal blood pressure MDM Narrative The patient is a 68-year-old female who presented to the emergency department for an evaluation of hypotension. The patient has had ongoing generalized weakness. She was noted to have hypotension at the manager lpn office today and was sent to the emergency department for further evaluation. The patient has been having some degree of diarrhea. She is also been treated for multiple myeloma. I discussed the patient's laboratory and radiographic studies with her. She responded well to IV hydration. She was found no signs of urinary tract infection on urinalysis. I discussed the patient's condition with the on- call [facility] hospitalist group. They have agreed to evaluate the patient in the emergency department for further management and disposition. The patient was feeling much better on subsequent reevaluation. Impression & Plan Sepsis secondary to UTI, Generalized weakness Discharge Plan Visit Data *Final* Discharge Date/Time: 07/02/19 15:31 Chief Complaint: Hypotension Stated Complaint: LOW BLOOD PRESSURE, SENT BY ED Provider: Sukhi Vega Discharge Problem: Sepsis secondary to UTI, Generalized weakness Patient Disposition: Admitted As Inpatient Discharge Instructions Interventions: ED Discharge Assessment Last Done: 07/02/19 15:31 The scribe's documentation has been prepared under my direction and personally reviewed by me in its entirety. I confirm that the note above accurately reflects all work, treatment, procedures, and medical decision making performed by me.
[2019-07-02] MEDS: RASPBERRY SYRUP 5 ML UDP PO SCH ×2 (18:18→23:25)
[2019-07-02] MEDS: ENOXAPARIN 80 MG/0.8 ML SYR SQ SCH (18:18)
[2019-07-02] MEDS: VANCOMYCIN HCL 125 MG/2.5ML SOLN PO SCH ×2 (18:19→23:25)
[2019-07-02] MEDS: PIPERACILLIN/TAZOBACTAM 3.375 GM in DEXTROSE 5% 100 ML IV SCH (20:11)
[2019-07-02] MEDS: ACETAMINOPHEN 325 MG TAB PO PRN (20:11)
[2019-07-02] MEDS: FLUTICASONE/SALMETEROL (ADVAIR) 500/50 INH 14 PUFF INH SCH (20:12)
[2019-07-02] MEDS: MONTELUKAST SODIUM 10 MG TABLET PO SCH (20:13)
[2019-07-02] MEDS: POTASSIUM CHLORIDE 20 MEQ TABCR PO SCH (20:13)
[2019-07-02] MEDS: GABAPENTIN 100 MG CAP PO SCH (20:13)
[2019-07-02] MEDS: MIRTAZAPINE TAB 15 MG TAB PO SCH (20:14)
[2019-07-02] MEDS ORDERED: ENOXAPARIN 1 MG/KG SC SCH (21:00)
[2019-07-03 04:26] LABS: Hematocrit (blood only) 30.1 % (37-47); Hemoglobin 9.4 g/dL (12.0-16.0); Mean Corpuscular Hemoglobin 28.4 pg (25-34); Mean Corpuscular Hgb Conc 31.2 g/dL (32-36); Mean Corpuscular Volume 90.9 fL (80-100); Mean Platelet Volume 9.9 fL (7.4-10.4); Platelet Count 217 K/uL (130-400); RDW Coefficient of Variation 16.5 % (11.5-14.5); RDW Standard Deviation 54.9 fL (36.4-46.3); Red Blood Count 3.31 M/uL (4.2-5.4); White Blood Count 4.77 K/uL (4.8-10.8)
[2019-07-03] MEDS: SODIUM CHLORIDE 0.9% 1000ML 1,000 ML IV SCH ×2 (04:38→15:30)
[2019-07-03] MEDS: PIPERACILLIN/TAZOBACTAM 3.375 GM in DEXTROSE 5% 100 ML IV SCH ×3 (04:38→20:50)
[2019-07-03 04:48] LABS: BUN Creatinine Ratio 11.8 (10-20); Calcium 7.7 mg/dl (8.5-10.1); Creatinine Clr Calc Pharmacy 53.5 ml/min; Est GFR (African American) 72.7; Est GFR (Non-African American) 62.7; Magnesium 1.8 mg/dl (1.8-2.4); Potassium 3.7 mmol/L (3.5-5.1)
[2019-07-03] MEDS: RASPBERRY SYRUP 5 ML UDP PO SCH ×3 (06:29→18:05)
[2019-07-03] MEDS: ENOXAPARIN 80 MG/0.8 ML SYR SQ SCH ×2 (06:29→21:34)
[2019-07-03] MEDS: VANCOMYCIN HCL 125 MG/2.5ML SOLN PO SCH ×3 (06:29→18:05)
[2019-07-03] MEDS ORDERED: METOPROLOL SUCC 25MG EXT REL TAB PO SCH (09:00)
[2019-07-03] MEDS: FLUTICASONE/SALMETEROL (ADVAIR) 500/50 INH 14 PUFF INH SCH ×2 (10:17→21:34)
[2019-07-03] MEDS: ASPIRIN 81 MG ECTAB PO SCH (10:18)
[2019-07-03] MEDS: FERROUS GLUCONATE 324 MG TAB PO SCH (10:18)
[2019-07-03] MEDS: METOPROLOL SUCC 25MG EXT REL TAB PO SCH (10:19)
[2019-07-03] MEDS: FLUOXETINE HCL 20 MG CAP PO SCH (10:19)
[2019-07-03] MEDS: POTASSIUM CHLORIDE 20 MEQ TABCR PO SCH ×2 (10:19→20:53)
[2019-07-03] MEDS: ATORVASTATIN 40 MG TAB PO SCH (10:20)
[2019-07-03] MEDS: PANTOprazole 40 MG TAB PO SCH (10:20)
[2019-07-03] MEDS: GABAPENTIN 100 MG CAP PO SCH ×3 (10:20→20:52)
[2019-07-03] MEDS: ACYCLOVIR 400 MG TAB PO SCH (10:21)
--- NOTE | 2019-07-03 13:03 | Hospitalist Progress Note ---
Date of Service July 03, 2019 Assessment & Plan (1) Hypotension: Hypotension resolved. Last was at 8 PM last night. BP supine 121/64, heart rate 87 BP sitting 109/65 heart rate 93 BP standing 116/63 heart rate 99 Give IV fluids. Monitor blood pressure and volume status. Monitor total fluid intake and output Blood cultures negative 24 hours Urine culture growing multiple organisms. Resend urine culture. Continue Zosyn for now Hb dropped from 11.5 yesterday to 9.4 today No reported bleeding. This could be dilutional as patient got 2 L of IV fluids in the ER. We will continue to monitor (2) Elevated lactic acid level: In ER lactate: 2.8 CXR: no acute findings Possible UTI on UA Received 2L NSS, Zosyn in ER Elevated lactate is resolved to 1.2. (3) Possible urinary tract infection: Possible UTI on UA. Patient reporting right lower abdominal discomfort but no dysuria, frequency, urgency, discharge Urine culture growing multiple organisms. Resend urine culture. Continue Zosyn for now and discontinue if negative (4) Right leg DVT: Currently on Lovenox 70 mg every 12 Tried to reach patient's packaging clerk/oncologist Dr. Maldonado to discuss anti coagulation options but was not available Physician taking care of patient tomorrow will try again (5) Weakness: Chronic weakness. Uses rolling walker to ambulate. PT/OT eval (6) Palpitations: H/O palpitations and sinus tachycardia Current sinus rhythm and pulse in 80's Continue metoprolol with BP holding parameters (7) Hypomagnesemia: Magnesium 1.7 on admission. Today 1.8 Continue to monitor and replete appropriately (8) C. difficile diarrhea: Reportedly diagnosed with C-diff at [facility] during recent admission 06/25/19 Reports decreased diarrhea past 5 days with one episode yesterday. Had one loose stool this morning. Pt unsure if she is taking her oral vancomycin Continue vancomycin 125mg po QID for now (9) Multiple myeloma: H/O Multiple myeloma. Follows with Dr Maldonado oncology [place] Stated last chemo was one month ago (10) MOHAN (obstructive sleep apnea): (11) Nocturnal hypoxemia: Noncompliant with CPAP HS Continue oxygen 3L nasal cannula HS (12) Asthma: Stable Continue home inhalers Full code as per discussion with pt Follows with Dr Javier Herrera [facility] for routine care Subjective Patient seen and examined. Had one loose stool this morning. Reports right lower abdominal discomfort with some nausea. Reported some dizziness while laying down but this morning that resolved Denies any fevers, chills Denies any chest pain, shortness of breath Denied dysuria, frequency, urgency Review of Systems Review of Systems: All systems reviewed and unremarkable except for mentioned above. Physical Exam Physical Exam: General: Well hydrated. No distress Eyes: PERRL, conjunctivae normal, EOM intact bilaterally ENMT: External ear and nose normal, oropharynx normal Neck: Normal visual inspection, no tracheal deviation, no swelling noted Respiratory: Normal respiratory effort, no respiratory distress, lungs c lear to auscultation, no crackles and no wheezes Cardiovascular: Pulse is RRR. S1 S2 Gastrointestinal (Abdomen): Abdomen is not distended, soft, non-tender to palpation, no guarding, no palpable hepatosplenomegaly, normal bowel sounds Musculoskeletal: Trace leg edema Genitourinary: No CVA tenderness Skin: Intercrural erythematous skin, some erythema over perineum Neurologic: Alert and oriented x 3, No focal weakness, sensation grossly intact Results & Data Vital Signs (Past 12 Hours) Vital Signs Temp Pulse Resp BP Pulse Ox 07/03/19 08:00 36.4 C L 88 20 112/66 97 07/03/19 04:00 36.8 C 76 16 129/92 95 Laboratory Results Abnormal lab results 07/03/19 07/03/19 Range/Units 04:12 04:12 WBC 4.77 L (4.8-10.8) K/uL RBC 3.31 L (4.2-5.4) M/uL Hgb 9.4 L (12.0-16.0) g/dL Hct 30.1 L (37-47) % MCHC 31.2 L (32-36) g/dL RDW Std Deviation 54.9 H (36.4-46.3) fL RDW Coeff of Alejandro 16.5 H (11.5-14.5) % Chloride 114 H (98-107) mmol/L Calcium 7.7 L D (8.5-10.1) mg/dl
[2019-07-03] MEDS ORDERED: VANCOMYCIN CONSULT ACTIVE PRN (17:44)
[2019-07-03] MEDS ORDERED: VANCOMYCIN HCL 1,750 MG in SODIUM CHLORIDE 0.9% 500 ML IV ONE (18:30)
[2019-07-03] MEDS: MONTELUKAST SODIUM 10 MG TABLET PO SCH (20:52)
[2019-07-03] MEDS: MIRTAZAPINE TAB 15 MG TAB PO SCH (20:52)
[2019-07-04] MEDS: VANCOMYCIN HCL 125 MG/2.5ML SOLN PO SCH ×4 (00:29→17:24)
[2019-07-04] MEDS: RASPBERRY SYRUP 5 ML UDP PO SCH ×4 (00:29→17:24)
[2019-07-04] MEDS: SODIUM CHLORIDE 0.9% 1000ML 1,000 ML IV SCH (02:42)
[2019-07-04] MEDS: PIPERACILLIN/TAZOBACTAM 3.375 GM in DEXTROSE 5% 100 ML IV SCH ×3 (04:33→20:42)
[2019-07-04 07:21] LABS: Hematocrit (blood only) 34.2 % (37-47); Hemoglobin 10.6 g/dL (12.0-16.0); Mean Corpuscular Hemoglobin 28.2 pg (25-34); Mean Platelet Volume 10.6 fL (7.4-10.4); Platelet Count 274 K/uL (130-400); RDW Coefficient of Variation 16.2 % (11.5-14.5); RDW Standard Deviation 54.7 fL (36.4-46.3); Red Blood Count 3.76 M/uL (4.2-5.4)
[2019-07-04] MEDS: ENOXAPARIN 80 MG/0.8 ML SYR SQ SCH ×2 (07:34→20:42)
[2019-07-04] MEDS: FLUTICASONE/SALMETEROL (ADVAIR) 500/50 INH 14 PUFF INH SCH ×2 (07:34→20:43)
[2019-07-04] MEDS: ASPIRIN 81 MG ECTAB PO SCH (07:35)
[2019-07-04] MEDS: POTASSIUM CHLORIDE 20 MEQ TABCR PO SCH ×2 (07:35→20:44)
[2019-07-04] MEDS: FERROUS GLUCONATE 324 MG TAB PO SCH (07:35)
[2019-07-04] MEDS: FLUOXETINE HCL 20 MG CAP PO SCH (07:36)
[2019-07-04] MEDS: ATORVASTATIN 40 MG TAB PO SCH (07:36)
[2019-07-04] MEDS: GABAPENTIN 100 MG CAP PO SCH ×3 (07:36→20:44)
[2019-07-04] MEDS: PANTOprazole 40 MG TAB PO SCH (07:36)
[2019-07-04] MEDS: ACYCLOVIR 400 MG TAB PO SCH (07:37)
[2019-07-04] MEDS: METOPROLOL SUCC 25MG EXT REL TAB PO SCH (07:37)
[2019-07-04 08:08] LABS: BUN Creatinine Ratio 6.4 (10-20); Calcium 8.8 mg/dl (8.5-10.1); Creatinine Clr Calc Pharmacy 61.4 ml/min; Est GFR (African American) 84.6; Magnesium 1.6 mg/dl (1.8-2.4)
[2019-07-04] MEDS ORDERED: MAGNESIUM SULFATE / D5W 1 GM/100 ML BAG IV ONE (09:00)
--- NOTE | 2019-07-04 09:19 | Pharmacy Report ---
Pharmacy Abx Dose Short Note - Date of Service July 04, 2019 - Assessment & Plan Assessment 68 year old F receiving Vancomycin for treatment of bacteremia and Zosyn for UTI. Day # 2 of antimicrobial therapy. * 1 of 2 blood cultures from 07/02 growing GPC. * Blood cultures from 07/03 pending Plan Vancomycin for treatment of bacteremia Vancomycin IV * Estimated PK Parameters: Vd 0.7 L/kg, Tommy 0.055 hr-1, t1/2 12.6 hr * Loading dose: 1750 mg (25 mg/kg) * Maintenance dose: 1250 mg IV (17.5 mg/kg) every 18 hours * Goal trough level for bacteremia : 15 to 20 mcg/mL * Trough level ordered for 07/06/19 @1530 Piperacillin/tazobactam for UTI * 4.5 g bolus administered over 30 minutes, then 3.375 g IV extended infusion every 8 hours for CrCl greater than 20 mL/min Pharmacy will continue to follow and will adjust dose/frequency as necessary. Thank you.
[2019-07-04] MEDS: VANCOMYCIN HCL 1,250 MG in SODIUM CHLORIDE 0.9% 250 ML IV SCH (10:54)
[2019-07-04] MEDS ORDERED: VANCOMYCIN HCL 1,500 MG in SODIUM CHLORIDE 0.9% 500 ML IV SCH (14:00)
--- NOTE | 2019-07-04 17:13 | Hospitalist Progress Note ---
Date of Service July 04, 2019 Assessment & Plan (1) Hypotension: Hypotension likely due to GI loses R/O infectious source other than C diff Negative Orthostatics BP improved with IV fluids Blood cultures: 1/2 Coag Negative Staph--Likely contamination Repeat Blood Cx:pending Urine culture growing multiple organisms On IV Vanco, Zosyn empirically Titrate Abx as able Hb drop likely dilutional from IV fluids Monitor CBC (2) Elevated lactic acid level: lactate levels normalized with IV fluids CXR: no acute findings Possible UTI on UA on Abx as above (3) Possible urinary tract infection: Possible UTI on UA. Urine culture growing multiple organisms. Continue Zosyn for now (4) Right leg DVT: Currently on therapeutic Lovenox Plan to discuss with clinical care coordinator/oncologist Dr. Maldonado for anticoagulation options (5) Weakness: Chronic weakness. Uses rolling walker to ambulate. PT/OT eval (6) Palpitations: H/O palpitations and sinus tachycardia Continue metoprolol (7) Hypomagnesemia: Due to GI loses Replete electrolytes as needed (8) C. difficile diarrhea: Reportedly diagnosed with C-diff at [facility] during recent admission 06/25/19 No history of C. difficile in the past as per patient Diarrhea slowly improving Continue p.o. vancomycin If abdominal pain does not improve, consider repeating CT ABD imaging. (9) Multiple myeloma: H/O Multiple myeloma. Follows with Dr Maldonado oncology [place] Stated last chemo was one month ago (10) MOHAN (obstructive sleep apnea): (11) Nocturnal hypoxemia: Noncompliant with CPAP HS Continue oxygen 3L nasal cannula HS (12) Asthma: Stable As of exacerbation Continue home inhalers DVT Px: Lovenox SQ Code Status Full code Disposition PT/OT prior to discharge Follows with Dr Herrera - Javier [facility] for routine care Subjective Patient is seen and examined at bedside Had 2 loose BMs today Reports mild abdominal discomfort Also reports nausea but no vomiting Denies any chest pain, SOB, dizziness Offers no other complaints Review of Systems Review of Systems: All systems reviewed & are unremarkable except as noted in HPI & below Physical Exam Physical Exam: Physical Exam: Vitals signs as noted above General Appearance:Moderately built and nourished, no apparent distress Head: normocephalic, Atraumatic Eyes: normal inspection, EOMI Neck: supple, Trachea midline Respiratory/Chest: Decreased breath sounds, CTA Cardiovascular: S1, S2, No murmur Abdomen/GI:Soft, mild RLQ tender, Bowel sounds present Extremities/Musculoskelatal:normal inspection, R>L B/L LE edema Neurologic/Psych:AAOX3, grossly no focal neurological deficits Skin: normal color, warm Results & Data Vital Signs (Past 12 Hours) Vital Signs Temp Pulse Pulse Resp BP Pulse Ox 07/04/19 15:49 36.6 C 88 17 121/76 97 07/04/19 10:59 36.5 C 94 H 19 105/71 99 07/04/19 08:00 88 07/04/19 07:12 36.8 C 91 H 19 97 Laboratory Results Short CBC 07/04/19 Range/Units 06:50 WBC 3.80 L (4.8-10.8) K/uL Hgb 10.6 L (12.0-16.0) g/dL Hct 34.2 L (37-47) % Plt Count 274 (130-400) K/uL BMP 07/04/19 06:50 Sodium 143 Potassium 4.0 Chloride 115 H Carbon Dioxide 20 L BUN 5 L D Creatinine 0.82 Glucose 95 Calcium 8.8
[2019-07-04] MEDS: MONTELUKAST SODIUM 10 MG TABLET PO SCH (20:44)
[2019-07-04] MEDS: MIRTAZAPINE TAB 15 MG TAB PO SCH (20:44)
[2019-07-05] MEDS: RASPBERRY SYRUP 5 ML UDP PO SCH ×4 (00:32→16:19)
[2019-07-05] MEDS: VANCOMYCIN HCL 125 MG/2.5ML SOLN PO SCH ×4 (00:32→16:19)
[2019-07-05] MEDS: SODIUM CHLORIDE 0.9% 1000ML 1,000 ML IV SCH ×3 (00:32→14:20)
[2019-07-05] MEDS: ACETAMINOPHEN 325 MG TAB PO PRN (00:33)
[2019-07-05] MEDS: VANCOMYCIN HCL 1,250 MG in SODIUM CHLORIDE 0.9% 250 ML IV SCH (04:45)
[2019-07-05] MEDS: PIPERACILLIN/TAZOBACTAM 3.375 GM in DEXTROSE 5% 100 ML IV SCH ×3 (05:29→21:09)
[2019-07-05 06:23] LABS: Hemoglobin 9.2 g/dL (12.0-16.0); Mean Corpuscular Hemoglobin 28.6 pg (25-34); Mean Corpuscular Hgb Conc 31.7 g/dL (32-36); Mean Corpuscular Volume 90.1 fL (80-100); Mean Platelet Volume 10.4 fL (7.4-10.4); Platelet Count 196 K/uL (130-400); RDW Coefficient of Variation 16.4 % (11.5-14.5); RDW Standard Deviation 53.2 fL (36.4-46.3); Red Blood Count 3.22 M/uL (4.2-5.4); White Blood Count 3.23 K/uL (4.8-10.8)
[2019-07-05 06:57] LABS: BUN Creatinine Ratio 4.9 (10-20); Calcium 8.2 mg/dl (8.5-10.1); Creatinine Clr Calc Pharmacy 32.2 ml/min; Est GFR (African American) 37.7; Est GFR (Non-African American) 32.5; Magnesium 1.7 mg/dl (1.8-2.4); Potassium 4.1 mmol/L (3.5-5.1)
[2019-07-05] MEDS: ENOXAPARIN 80 MG/0.8 ML SYR SQ SCH (07:52)
[2019-07-05] MEDS: POTASSIUM CHLORIDE 20 MEQ TABCR PO SCH ×2 (07:53→21:13)
[2019-07-05] MEDS: ACYCLOVIR 400 MG TAB PO SCH (07:53)
[2019-07-05] MEDS: ATORVASTATIN 40 MG TAB PO SCH (07:54)
[2019-07-05] MEDS: PANTOprazole 40 MG TAB PO SCH (07:54)
[2019-07-05] MEDS: FLUTICASONE/SALMETEROL (ADVAIR) 500/50 INH 14 PUFF INH SCH ×2 (07:54→21:10)
[2019-07-05] MEDS: ASPIRIN 81 MG ECTAB PO SCH (07:54)
[2019-07-05] MEDS: GABAPENTIN 100 MG CAP PO SCH ×3 (07:54→21:13)
[2019-07-05] MEDS: FLUOXETINE HCL 20 MG CAP PO SCH (07:54)
[2019-07-05] MEDS: FERROUS GLUCONATE 324 MG TAB PO SCH (07:54)
[2019-07-05] MEDS: METOPROLOL SUCC 25MG EXT REL TAB PO SCH (07:54)
[2019-07-05] MEDS ORDERED: MAGNESIUM SULFATE / D5W 1 GM/100 ML BAG IV ONE (08:15)
[2019-07-05 09:08] LABS: INR 1.2 (0.9-1.1); Partial Thromboplastin Ratio 1.5; Partial Thromboplastin Time 39.9 Seconds (21.0-31.0); Prothrombin Time 11.9 Seconds (9.0-12.0)
[2019-07-05] MEDS: HEPARIN SODIUM/DEXTROSE 25,000 UNITS/500 ML BAG IV SCH (14:19)
[2019-07-05] MEDS: Heparin IV Standard *NO* Bolus IV SCH ×2 (14:48→15:36)
--- NOTE | 2019-07-05 16:47 | Hospitalist Progress Note ---
Date of Service July 05, 2019 Assessment & Plan (1) Hypotension: Hypotension likely due to GI loses R/O infectious source other than C diff Negative Orthostatics BP variable Blood cultures: 1/2 Coag Negative Staph--Likely contamination Repeat Blood Cx:Negative to date Urine culture growing multiple organisms Discontinue IV Vanco Plan to discontinue Zosyn in 1-2 days if cultures remain negative Hb drop likely dilutional from IV fluids Monitor CBC Acute Kidney Injury Cr:1.6 today Discontinued IV Lovenox and Vancomycin Continue IV fluids Avoid Nephrotoxic agents as able Monitor renal function (2) Elevated lactic acid level: lactate levels normalized with IV fluids CXR: no acute findings Possible UTI on UA on Abx as above (3) Possible urinary tract infection: Possible UTI on UA. Urine culture growing multiple organisms. Continue Zosyn for now (4) Right leg DVT: Lovenox discontinued due to BARBRA Discussed with ceramic coater machine/oncologist Dr. Maldonado for anticoagulation options on 07/05/19 Started on IV Heparin for now Likely to be transitioned to Lovenox (renally adjusted) Vs Eliquis upon discharge (5) Weakness: Chronic weakness. Uses rolling walker to ambulate. PT/OT eval (6) Palpitations: H/O palpitations and sinus tachycardia Continue metoprolol (7) Hypomagnesemia: Due to GI loses Replete electrolytes as needed (8) C. difficile diarrhea: Reportedly diagnosed with C-diff at [facility] during recent admission 06/25/19 No history of C. difficile in the past as per patient Diarrhea slowly improving Continue p.o. vancomycin (9) Multiple myeloma: H/O Multiple myeloma. Follows with Dr Maldonado oncology [place] Stated last chemo was one month ago recommended to hold Revlimid due to acute infection Needs follow up with Oncology upon discharge (10) MOHAN (obstructive sleep apnea): (11) Nocturnal hypoxemia: Noncompliant with CPAP HS Continue oxygen 3L nasal cannula HS (12) Asthma: Stable As of exacerbation Continue home inhalers DVT Px: on IV heparin Code Status Full code Disposition Plan to discharge to rehab facility when medically stable Follows with Dr Javier Herrera [facility] for routine care Subjective Patient is seen and examined at bedside No diarrhea today Reports nausea earlier today Denies vomiting, chest pain, SOB, dizziness Discussed with Patient's Oncologist today Offers no other complaints Review of Systems Review of Systems: All systems reviewed & are unremarkable except as noted in HPI & below Physical Exam Physical Exam: Physical Exam: Vitals signs as noted above General Appearance:Moderately built and nourished, no apparent distress Head: normocephalic, Atraumatic Eyes: normal inspection, EOMI Neck: supple, Trachea midline Respiratory/Chest: Decreased breath sounds, R basal minimal crackles Cardiovascular: S1, S2, No murmur Abdomen/GI:Soft, mild RLQ tender, Bowel sounds present Extremities/Musculoskelatal:normal inspection, R>L B/L LE edema Neurologic/Psych:AAOX3, grossly no focal neurological deficits Skin: normal color, warm Results & Data Vital Signs (Past 12 Hours) Vital Signs Temp Pulse Resp BP Pulse Ox 07/05/19 15:42 36.3 C L 83 18 92/59 L 100 07/05/19 11:49 36.4 C L 87 19 111/73 100 07/05/19 07:27 36.7 C 88 19 138/81 99 Laboratory Results Short CBC 07/05/19 Range/Units 06:02 WBC 3.23 L (4.8-10.8) K/uL Hgb 9.2 L (12.0-16.0) g/dL Hct 29.0 L (37-47) % Plt Count 196 (130-400) K/uL BMP 07/05/19 06:02 Sodium 144 Potassium 4.1 Chloride 118 H Carbon Dioxide 20 L BUN 8 Creatinine 1.60 H D Glucose 82 Calcium 8.2 L
[2019-07-05 20:57] LABS: Partial Thromboplastin Time 108.7 Seconds (21.0-31.0)
[2019-07-05] MEDS: MONTELUKAST SODIUM 10 MG TABLET PO SCH (21:12)
[2019-07-05] MEDS: MIRTAZAPINE TAB 15 MG TAB PO SCH (21:13)
[2019-07-06] MEDS: SODIUM CHLORIDE 0.9% 1000ML 1,000 ML IV SCH ×2 (00:30→10:52)
[2019-07-06] MEDS: VANCOMYCIN HCL 125 MG/2.5ML SOLN PO SCH ×5 (00:30→23:53)
[2019-07-06] MEDS: RASPBERRY SYRUP 5 ML UDP PO SCH ×5 (00:30→23:53)
[2019-07-06 03:28] LABS: Hematocrit (blood only) 29.3 % (37-47); Hemoglobin 9.5 g/dL (12.0-16.0); Mean Corpuscular Hemoglobin 29.1 pg (25-34); Mean Corpuscular Hgb Conc 32.4 g/dL (32-36); Mean Corpuscular Volume 89.9 fL (80-100); Mean Platelet Volume 10.5 fL (7.4-10.4); Platelet Count 205 K/uL (130-400); RDW Coefficient of Variation 16.5 % (11.5-14.5); RDW Standard Deviation 55.3 fL (36.4-46.3); Red Blood Count 3.26 M/uL (4.2-5.4); White Blood Count 3.54 K/uL (4.8-10.8)
[2019-07-06 03:52] LABS: Partial Thromboplastin Ratio 4.1
[2019-07-06 03:53] LABS: Calcium 8.5 mg/dl (8.5-10.1); Creatinine Clr Calc Pharmacy 23.2 ml/min; Est GFR (African American) 25.4; Est GFR (Non-African American) 21.9; Magnesium 1.9 mg/dl (1.8-2.4); Potassium 4.4 mmol/L (3.5-5.1)
[2019-07-06 03:54] LABS: Partial Thromboplastin Time 110.2 Seconds (21.0-31.0)
[2019-07-06] MEDS: PIPERACILLIN/TAZOBACTAM 3.375 GM in DEXTROSE 5% 100 ML IV SCH (04:22)
[2019-07-06] MEDS: PANTOprazole 40 MG TAB PO SCH (07:44)
[2019-07-06] MEDS: FLUTICASONE/SALMETEROL (ADVAIR) 500/50 INH 14 PUFF INH SCH ×2 (07:44→20:55)
[2019-07-06] MEDS: GABAPENTIN 100 MG CAP PO SCH ×3 (07:44→20:56)
[2019-07-06] MEDS: FLUOXETINE HCL 20 MG CAP PO SCH (07:44)
[2019-07-06] MEDS: ACYCLOVIR 400 MG TAB PO SCH (07:45)
[2019-07-06] MEDS: ASPIRIN 81 MG ECTAB PO SCH (07:45)
[2019-07-06] MEDS: METOPROLOL SUCC 25MG EXT REL TAB PO SCH (07:45)
[2019-07-06] MEDS: ATORVASTATIN 40 MG TAB PO SCH (07:45)
[2019-07-06] MEDS: POTASSIUM CHLORIDE 20 MEQ TABCR PO SCH ×2 (07:45→20:56)
[2019-07-06] MEDS: FERROUS GLUCONATE 324 MG TAB PO SCH (07:45)
--- NOTE | 2019-07-06 09:18 | Ultrasound Report ---
ULTRASOUND KIDNEYS AND BLADDER CLINICAL HISTORY: Acute renal insufficiency. COMPARISON STUDY: No priors. TECHNIQUE: Real-time, grayscale, and color flow sonography of the kidneys and bladder is performed. I mages are reviewed in the transverse and longitudinal planes. FINDINGS: Kidneys: The kidneys demonstrate cortical atrophy. The right kidney measures 10.0 cm in length and th e left kidney measures 9.7 cm in length. There is no hydronephrosis. No shadowing renal calculi are i dentified. There is no sonographic evidence of contour deforming renal mass lesion. No perinephric fl uid is identified. Bladder: The bladder is largely decompressed and grossly unremarkable. Ureteral jets were not seen. IMPRESSION: 1. The kidneys demonstrate cortical atrophy and are without hydronephrosis. 2. The bladder was decompressed and grossly unremarkable. ACT 112: Negative or not required by law. Electronically signed by: Carlos Chopra M.D. 07/06/2019 9:16 AM
--- NOTE | 2019-07-06 09:41 | Nephrology Consultation ---
Date of Consultation July 06, 2019 Assessment & Plan (1) BARBRA (acute kidney injury): nonoliguric ischemic atn versus atn from vanco toxicity. baseline creatinine 0.9; at baseline on 07/02 presentation. then 07/05 up abruptly to 1.6, today to 2.2. not oliguric. did have 4 doses vancomycin IV on 07/03, then 2 doses on 07/04, and 1 dose on 07/05 at 0500; no vanco level on file; could not add to labs from this am so ordered stat 1800 vanco level 07/06 -f/u vanco level -check uacm, prot/creat > ordered -daily bmp -cont nephrotoxin avoidance Present on Admission?: No (2) Hypotension: -her C diff at outside facility [facility] was negative; however pt on po vanco per oncology OP recommendations -reluctant to stop current BB dose d/t relative a fib and would continue -changed NS to normosol to lower hyperchloremia -would evaluate her for adrenal insufficiency but her hypoalbuminemia makes test results impossible to interpret reliably: she could have chronic tertiary adrenal insufficiency from repeated glucocorticoid exposure for CA care; consider empiric 3 mg daily prednisone and 0.1 mg daily fludrocortisone; observe for now -get reliable count of BM daily if possible Present on Admission?: Yes History of Present Illness Reason for Consultation: BARBRA Requesting Physician: Dr Santiago Attending Physician: Mansoor Santiago MD History of Present Illness 68 y/o F whom I'm asked to see for BARBRA after she was admitted here on 07/02 for orthostatic hypotension and generalized weakness noted in cardiology clinic and found to have R popliteal DVT. PMH includes multiple myeloma diagnosed february 2019, HTN, MOHAN, HL, depression/anxiety, hx sinus tachycardia Multiple admissions this fall/winter, including 03/2019 for BARBRA, elevated CA, low K, anemia from CTX; [facility] May 2019 per pt for dehydration, anemia; [facility] 06/25-06/27 for dehydration and diarrhea. Since presentation ongoing 1- 2 loose bm daily. Her baseline creatinine prior to recent MM dx was about 1.1 per outside records. She has been getting tx at [facility] for MM w/ velcade, dexamethazone, most recently 06/18; also on monthly zometa. Creat was 0.9 at recent [facility] d/c and 1.0 on presentation here. On 07/05, her creatinine doubled to 1.6; today up to 2.2. She is getting NS at 100 mL /hr started on 07/03. No IV contrast this admission. her SBP has been on the soft side, ranging from 90s to 110s. she is on RA w/ HR in 90s consistently. she has been afebrile. She has been maintained on her home dose of metoprolol LA 12.5 mg daily. Allergies Allergy/AdvReac Type Severity Reaction Status Date / Time No Known Allergies Allergy Mild ? Unverified 07/02/19 12:12 Home Medications Home Medications Medication Instructions Recorded Confirmed Type acyclovir 400 mg PO DAILY 07/02/19 07/02/19 History albuterol sulfate 1 puff INHALATION Q6H PRN 07/02/19 07/02/19 History aspirin 81 mg PO QAM 07/02/19 07/02/19 History atorvastatin 40 mg PO DAILY 07/02/19 07/02/19 History ferrous gluconate 324 mg PO DAILY 07/02/19 07/02/19 History fluoxetine 40 mg PO QAM 07/02/19 07/02/19 History fluticasone furoate-vilanterol 1 inh INHALATION DAILY 07/02/19 07/02/19 History [Breo Ellipta] gabapentin 100 mg PO TID 07/02/19 07/02/19 History metoprolol succinate 12.5 mg PO QAM 07/02/19 07/02/19 History mirtazapine 15 mg PO HS 07/02/19 07/02/19 History montelukast 10 mg PO HS 07/02/19 07/02/19 History omeprazole 20 mg PO DAILY 07/02/19 07/02/19 History potassium chloride 20 meq PO BID 07/02/19 07/02/19 History tramadol 50 mg PO Q6H PRN 07/02/19 07/02/19 History vancomycin 125 mg PO QID 07/02/19 07/02/19 History Patient History Medical History (Updated 07/06/19 @ 18:18 by Juana Cardenas MD, PhD) Anemia Asthma Depression with anxiety Dyslipidemia Encounter for blood transfusion HTN (hypertension) Migraine Multiple myeloma Nocturnal hypoxemia MOHAN (obstructive sleep apnea) Palpitations Sinus tachycardia Tachycardia Surgical History H/O cataract removal with insertion of prosthetic lens S/P cholecystectomy S/P tubal ligation Family History (Updated 07/02/19 @ 15:22 by Yesica Vora PA-C) Other Cancer Hypertension Social History (Updated 07/02/19 @ 15:22 by Yesica Vora PA-C) Preferred Language: Slovak Communication Ability: Effective Inspector Watch Assembly Required: No Beliefs That Will Affect Care: None Current Living Situation: Spouse current occupational status: retired Other Information That Helps Us Care for You: No Feels Safe at Home: Yes Safety Concerns: Feels Safe At This Time Smoking Status: Former smoker Hx Alcohol Use: No Hx Substance Use: No Review of Systems Review of Systems: All systems reviewed & are unremarkable except as noted in HPI & below Constitutional: + fatigue, + weakness and + anorexia Cardiovascular: + edema; no orthopnea and no palpitations Gastrointestinal: + early satiety Genitourinary: no dysuria, no difficulty urinating, no urinary frequency and no urinary incontinence Integumentary: no rash and no non-healing lesions Physical Exam Constitutional: well developed and well nourished; no acute distress (sitting up in chair on RA) Eyes: EOM intact bilaterally ENMT: Ears: no external ear abnormality Nose: no external nose abnormality Mouth: + dry oral mucous membranes Neck: no nuchal rigidity Respiratory: normal respiratory effort Auscultation: + diminished lung sounds Cardiovascular: Rate/Rhythm: regular rate and regular rhythm Extremities: + edema (R>L) Gastrointestinal (Abdomen): Inspection/Auscultation: normal bowel sounds Percussion/Palpation: abdomen soft; abdomen nontender Musculoskeletal: Extremities: strength 5/5 throughout Skin: no rashes, warm and dry Neurologic: grant, fluent speech, no tremor Psychiatric: A+Ox3, euthymic affect Speech: normal rate/rhythm/volume of speech Genitourinary: no hernandez Results & Data Vital Signs (Past 12 Hours) Vital Signs Temp Pulse Pulse Resp BP Pulse Ox 07/06/19 06:30 36.8 C 89 19 119/83 97 07/06/19 04:17 36.5 C 88 21 110/74 96 07/05/19 23:59 82 07/05/19 23:34 36.3 C L 85 20 122/79 99 Laboratory Results 07/06/19 03:08 07/06/19 03:08 Diagnostic Findings renal u/s today: unremarkable fo acute or chronic process
[2019-07-06 10:21] LABS: Partial Thromboplastin Ratio 3.1
[2019-07-06 10:23] LABS: Partial Thromboplastin Time 83.1 Seconds (21.0-31.0)
[2019-07-06] MEDS: ONDANSETRON INJ 2 MG/ML 2 ML VIAL IV PRN (10:52)
[2019-07-06] MEDS ORDERED: VANCOMYCIN TROUGH ONE ×2 (13:30→15:30)
[2019-07-06] MEDS: HEPARIN SODIUM/DEXTROSE 25,000 UNITS/500 ML BAG IV SCH (14:13)
[2019-07-06 17:41] LABS: Partial Thromboplastin Ratio 2.2
[2019-07-06 17:46] LABS: Partial Thromboplastin Time 59.6 Seconds (21.0-31.0)
--- NOTE | 2019-07-06 19:03 | Hospitalist Progress Note ---
Date of Service July 06, 2019 Assessment & Plan (1) Hypotension: Hypotension likely due to GI loses R/O infectious source other than C diff Negative Orthostatics ? Adrenal insufficiency BP variable Blood cultures: 1/2 Coag Negative Staph--Likely contamination Repeat Blood Cx:Negative to date Urine culture growing multiple organisms Discontinue IV Vanco Received Zosyn for UTI Monitor CBC Acute Kidney Injury Ischemic ATN Vs Vanco toxicity Cr:1.6 >>2.2 IV Lovenox and Vancomycin discontinued Renal USD:The kidneys demonstrate cortical atrophy and are without hydronephrosis. The bladder was decompressed and grossly unremarkable. Follow urine studies Continue IV fluids Avoid Nephrotoxic agents as able Monitor renal function Appreciate nephrology input (2) Elevated lactic acid level: lactate levels normalized with IV fluids CXR: no acute findings Possible UTI on UA/Cx (3) Possible urinary tract infection: Possible UTI on UA. Urine culture growing multiple organisms. Received Zosyn (4) Right leg DVT: Lovenox discontinued due to BARBRA Discussed with video technician/oncologist Dr. Maldnoado for anticoagulation options on 07/05/19 Continue IV Heparin for now Likely to be transitioned to Lovenox (renally adjusted) Vs Eliquis upon discharge if renal function improves (5) Weakness: Chronic weakness. Uses rolling walker to ambulate. PT/OT eval (6) Palpitations: H/O palpitations and sinus tachycardia Continue metoprolol (7) Hypomagnesemia: Due to GI loses Replete electrolytes as needed (8) C. difficile diarrhea: Reportedly diagnosed with C-diff at [facility] during recent admission 06/25/19 No history of C. difficile in the past as per patient Diarrhea slowly improving Continue p.o. vancomycin (9) Multiple myeloma: H/O Multiple myeloma. Follows with Dr Maldonado oncology [place] Stated last chemo was one month ago recommended to hold Revlimid due to acute infection Needs follow up with Oncology upon discharge (10) MOHAN (obstructive sleep apnea): (11) Nocturnal hypoxemia: Noncompliant with CPAP HS Continue oxygen 3L nasal cannula HS (12) Asthma: Stable As of exacerbation Continue home inhalers DVT Px: on IV heparin Code Status Full code Disposition Plan to discharge to rehab facility when medically stable Follows with Dr Javier Herrera [facility] for routine care Subjective Patient is seen and examined at bedside Had 3 loose bowel movements today Has nausea but no vomiting--chronic for many months as per patient Denies chest pain, SOB, dizziness Creatinine level slightly worsened today Renal ultrasound no acute change Review of Systems Review of Systems: All systems reviewed & are unremarkable except as noted in HPI & below Physical Exam Physical Exam: Physical Exam: Vitals signs as noted above General Appearance:Moderately built and nourished, no apparent distress Head: normocephalic, Atraumatic Eyes: normal inspection, EOMI Neck: supple, Trachea midline Respiratory/Chest: Decreased breath sounds, R basal minimal crackles Cardiovascular: S1, S2, No murmur Abdomen/GI:Soft, non tender, Bowel sounds present Extremities/Musculoskelatal:normal inspection, R>L B/L LE edema Neurologic/Psych:AAOX3, grossly no focal neurological deficits Skin: normal color, warm Results & Data Vital Signs (Past 12 Hours) Vital Signs Temp Pulse Pulse Resp BP Pulse Ox 07/06/19 15:33 36.8 C 90 19 99/68 L 97 07/06/19 15:20 89 07/06/19 11:56 36.8 C 86 18 93/63 L 98 Laboratory Results Short CBC 07/06/19 Range/Units 03:08 WBC 3.54 L (4.8-10.8) K/uL Hgb 9.5 L (12.0-16.0) g/dL Hct 29.3 L (37-47) % Plt Count 205 (130-400) K/uL BMP 07/06/19 03:08 Sodium 142 Potassium 4.4 Chloride 117 H Carbon Dioxide 21 BUN 11 Creatinine 2.22 H D Glucose 97 Calcium 8.5
[2019-07-06] MEDS: NORMOSOL-R 1,000 ML IV SCH (19:30)
[2019-07-06] MEDS: LACTOBACILLUS ACIDOPHILUS (FLORANEX) TAB PO SCH (20:55)
[2019-07-06] MEDS: MONTELUKAST SODIUM 10 MG TABLET PO SCH (20:57)
[2019-07-06] MEDS: MIRTAZAPINE TAB 15 MG TAB PO SCH (20:57)
[2019-07-06] MEDS: ACETAMINOPHEN 325 MG TAB PO PRN (23:53)
[2019-07-07] MEDS: NORMOSOL-R 1,000 ML IV SCH (03:55)
[2019-07-07 04:56] LABS: Partial Thromboplastin Ratio 2.4
[2019-07-07] MEDS: RASPBERRY SYRUP 5 ML UDP PO SCH ×4 (05:01→23:19)
[2019-07-07] MEDS: VANCOMYCIN HCL 125 MG/2.5ML SOLN PO SCH ×4 (05:01→23:19)
[2019-07-07 05:04] LABS: Partial Thromboplastin Time 64.4 Seconds (21.0-31.0)
[2019-07-07 05:06] LABS: Appearance Urine Cloudy (Clear); Bilirubin Urine Negative (Negative); Blood Urine 1+ (Negative); Color Urine Yellow; Epithelial Cell Urine Auto >30 /lpf (0-5); Glucose Urine UA Negative (Negative); Ketones Urine Negative (Negative); Leukocyte Esterase Urine 2+ (Negative); Nitrite Urine Negative (Negative); Protein Urine Negative (Negative); Specific Gravity Urine 1.005 (1.000-1.030); Urobilinogen Urine Negative (Negative)
[2019-07-07 05:06] LABS: BUN Creatinine Ratio 4.8 (10-20); Calcium 8.1 mg/dl (8.5-10.1); Creatinine Clr Calc Pharmacy 20.1 ml/min; Est GFR (African American) 20.9; Magnesium 1.7 mg/dl (1.8-2.4); Potassium 4.9 mmol/L (3.5-5.1)
[2019-07-07 05:18] LABS: Bacteria Urine Automated 1+ (Negative); RBC Urine Automated 0-4 /hpf (0-4); WBC Urine Automated >30 /hpf (0-5)
[2019-07-07 05:21] LABS: Creatinine Urine Random 13.4 mg/dl; Protein Creatinine Ratio Urine 0.5 (0-0.2); Total Protein Urine Random 6.4 mg/dl (0-11.9)
[2019-07-07] MEDS: METOPROLOL SUCC 25MG EXT REL TAB PO SCH (08:37)
[2019-07-07] MEDS: LACTOBACILLUS ACIDOPHILUS (FLORANEX) TAB PO SCH ×4 (08:38→19:44)
[2019-07-07] MEDS: GABAPENTIN 100 MG CAP PO SCH ×3 (08:38→19:45)
[2019-07-07] MEDS: ATORVASTATIN 40 MG TAB PO SCH (08:38)
[2019-07-07] MEDS: FLUOXETINE HCL 20 MG CAP PO SCH (08:39)
[2019-07-07] MEDS: ACYCLOVIR 400 MG TAB PO SCH (08:39)
[2019-07-07] MEDS: FLUTICASONE/SALMETEROL (ADVAIR) 500/50 INH 14 PUFF INH SCH ×2 (08:39→19:42)
[2019-07-07] MEDS: PANTOprazole 40 MG TAB PO SCH (08:39)
[2019-07-07] MEDS: POTASSIUM CHLORIDE 20 MEQ TABCR PO SCH (08:39)
[2019-07-07] MEDS: FERROUS GLUCONATE 324 MG TAB PO SCH (08:39)
[2019-07-07] MEDS: ASPIRIN 81 MG ECTAB PO SCH (08:39)
[2019-07-07] MEDS ORDERED: MAGNESIUM SULFATE / D5W 1 GM/100 ML BAG IV ONE (09:00)
[2019-07-07] MEDS: SODIUM BICARBONATE 8.4% 150 MEQ in DEXTROSE 5% 1,000 ML IV SCH ×2 (09:14→18:38)
--- NOTE | 2019-07-07 15:41 | Nephrology Progress Note ---
Date of Service July 07, 2019 Assessment & Plan (1) BARBRA (acute kidney injury): nonoliguric ischemic atn versus atn from vanco toxicity. baseline creatinine 0.9; at baseline on 07/02 presentation. then 07/05 up abruptly to 1.6, today to 2.2. not oliguric. did have 4 doses vancomycin IV on 07/03, then 2 doses on 07/04, and 1 dose on 07/05 at 0500; no vanco level on file; stat 1800 vanco level 07/06 is 22 (36 hrs after last/4th dose) -daily bmp -cont nephrotoxin avoidance -agree w/ holding potassium (2) Hypotension: -her C diff at outside facility [facility] was negative; however pt on po vanco per oncology OP recommendations -reluctant to stop current BB dose d/t a fib and would continue -changed NS to normosol to lower hyperchloremia -would evaluate her for adrenal insufficiency but her hypoalbuminemia makes test results impossible to interpret reliably: she could have chronic tertiary adrenal insufficiency from repeated glucocorticoid exposure for CA care; consider empiric 3 mg daily prednisone and 0.1 mg daily fludrocortisone>>consider hematology query of how often adrenal insufficiency seen/treated in pts on CTX for MM -get reliable count of BM daily if possible Subjective seen on rounds at about noon; no c/o sob, uncontrolled pain; feels edema unchanged, no n/v; ongoing poor po intake; denies voiding sx Review of Systems Review of Systems: All systems reviewed & are unremarkable except as noted in HPI & below Physical Exam Constitutional: well developed and well nourished; no acute distress (sitting up in chair on RA) Eyes: EOM intact bilaterally ENMT: Ears: no external ear abnormality Nose: no external nose abnormality Mouth: + dry oral mucous membranes Neck: no nuchal rigidity Respiratory: normal respiratory effort Auscultation: + diminished lung sounds Cardiovascular: Rate/Rhythm: regular rate and regular rhythm Extremities: + edema (1+ BL) Gastrointestinal (Abdomen): Inspection/Auscultation: normal bowel sounds Percussion/Palpation: abdomen soft; abdomen nontender Musculoskeletal: Extremities: strength 5/5 throughout Skin: no rashes, warm and dry Neurologic: grant, fluent speech, no tremor Psychiatric: A+Ox3, euthymic affect Speech: normal rate/rhythm/volume of speech Genitourinary: no hernandez Results & Data Vital Signs (Past 12 Hours) Vital Signs Temp Pulse Pulse Resp BP BP Pulse Ox 07/07/19 15:26 104 H 07/07/19 11:37 37.1 C 103 H 19 89/58 L 98 07/07/19 08:00 90 07/07/19 07:31 36.8 C 99 H 19 136/93 96 07/07/19 04:43 36.7 C 86 22 99/63 L 96 Laboratory Results 07/06/19 03:08 07/07/19 04:27
[2019-07-07] MEDS: ACETAMINOPHEN 325 MG TAB PO PRN (16:10)
--- NOTE | 2019-07-07 17:43 | Hospitalist Progress Note ---
Date of Service July 07, 2019 Assessment & Plan (1) Hypotension: Hypotension likely due to GI loses R/O infectious source other than C diff Negative Orthostatics ? Adrenal insufficiency BP variable Blood cultures: 1/2 Coag Negative Staph--Likely contamination Repeat Blood Cx:Negative to date Urine culture growing multiple organisms Repeat Urine Cx: pending Discontinue IV Vanco Received Zosyn for UTI Monitor CBC, Follow up Urine Cx Acute Kidney Injury Ischemic ATN Vs Vanco toxicity Metabolic acidosis Cr:1.6 >>2.2>> 2.6 IV Lovenox and Vancomycin discontinued Renal USD:The kidneys demonstrate cortical atrophy and are without hydronephrosis. The bladder was decompressed and grossly unremarkable. Continue IV fluids as per nephrology Hold potassium supplements for now Avoid Nephrotoxic agents as able Monitor renal function Appreciate nephrology input (2) Elevated lactic acid level: lactate levels normalized with IV fluids CXR: no acute findings Possible UTI on UA/Cx (3) Possible urinary tract infection: Possible UTI on UA. Urine culture growing multiple organisms. Received Zosyn Repeat urine culture pending (4) Right leg DVT: Lovenox discontinued due to BARBRA Discussed with city editor/oncologist Dr. Maldonado for anticoagulation options on 07/05/19 Continue IV Heparin for now Likely to be transitioned to Lovenox (renally adjusted) Vs Eliquis upon discharge if renal function improves (5) Weakness: Chronic weakness. Uses rolling walker to ambulate. PT/OT eval (6) Palpitations: H/O palpitations and sinus tachycardia Continue metoprolol (7) Hypomagnesemia: Due to GI loses Replete electrolytes as needed (8) C. difficile diarrhea: Reportedly diagnosed with C-diff at [facility] during recent admission 06/25/19 No history of C. difficile in the past as per patient Continue p.o. vancomycin Diarrhea slowly improving (9) Multiple myeloma: H/O Multiple myeloma. Follows with Dr Maldonado oncology [place] Stated last chemo was one month ago recommended to hold Revlimid due to acute infection Needs follow up with Oncology upon discharge (10) MOHAN (obstructive sleep apnea): (11) Nocturnal hypoxemia: Noncompliant with CPAP HS Continue oxygen 3L nasal cannula HS (12) Asthma: Stable As of exacerbation Continue home inhalers DVT Px: on IV heparin Code Status Full code Disposition Plan to discharge to rehab facility when medically stable Follows with Dr Javier Herrera [facility] for routine care Subjective Patient is seen and examined at bedside States feeling better today Denies nausea, vomiting, abdominal pain, diarrhea this morning Creatinine levels slightly worsened Also denies chest pain, SOB, dizziness Review of Systems Review of Systems: All systems reviewed & are unremarkable except as noted in HPI & below Physical Exam Physical Exam: Physical Exam: Vitals signs as noted above General Appearance:Moderately built and nourished, no apparent distress Head: normocephalic, Atraumatic Eyes: normal inspection, EOMI Neck: supple, Trachea midline Respiratory/Chest: Decreased breath sounds, CTA Cardiovascular: S1, S2, No murmur Abdomen/GI:Soft, non tender, Bowel sounds present Extremities/Musculoskelatal:normal inspection, R>L B/L LE edema Neurologic/Psych:AAOX3, grossly no focal neurological deficits Skin: normal color, warm Results & Data Vital Signs (Past 12 Hours) Vital Signs Temp Pulse Pulse Resp BP Pulse Ox 07/07/19 15:47 36.5 C 98 H 20 115/78 98 07/07/19 15:26 104 H 07/07/19 11:37 37.1 C 103 H 19 89/58 L 98 07/07/19 08:00 90 07/07/19 07:31 36.8 C 99 H 19 136/93 96 Laboratory Results [facility] 07/07/19 04:27 Sodium 140 Potassium 4.9 Chloride 117 H Carbon Dioxide 19 L BUN 13 Creatinine 2.61 H D Glucose 82 Calcium 8.1 L Urine 07/07/19 Range/Units 04:45 Urine Color Yellow Urine Appearance Cloudy A (Clear) Urine pH 5.0 (4.5-7.5) Ur Specific [place] 1.005 (1.000-1.030) Urine Protein Negative (Negative) Urine Glucose (UA) Negative (Negative)
[2019-07-07] MEDS: MONTELUKAST SODIUM 10 MG TABLET PO SCH (19:46)
[2019-07-07] MEDS: MIRTAZAPINE TAB 15 MG TAB PO SCH (19:46)
[2019-07-07] MEDS: HEPARIN SODIUM/DEXTROSE 25,000 UNITS/500 ML BAG IV SCH (23:13)
[2019-07-08] MEDS: SODIUM BICARBONATE 8.4% 150 MEQ in DEXTROSE 5% 1,000 ML IV SCH ×3 (03:52→22:37)
[2019-07-08] MEDS: RASPBERRY SYRUP 5 ML UDP PO SCH ×3 (05:19→16:50)
[2019-07-08] MEDS: VANCOMYCIN HCL 125 MG/2.5ML SOLN PO SCH ×3 (05:19→16:50)
[2019-07-08 05:45] LABS: Hematocrit (blood only) 26.1 % (37-47); Hemoglobin 8.4 g/dL (12.0-16.0); Mean Corpuscular Hemoglobin 29.1 pg (25-34); Mean Corpuscular Hgb Conc 32.2 g/dL (32-36); Mean Corpuscular Volume 90.3 fL (80-100); Mean Platelet Volume 9.7 fL (7.4-10.4); Platelet Count 175 K/uL (130-400); RDW Coefficient of Variation 16.4 % (11.5-14.5); RDW Standard Deviation 54.1 fL (36.4-46.3); Red Blood Count 2.89 M/uL (4.2-5.4); White Blood Count 3.44 K/uL (4.8-10.8)
[2019-07-08 06:15] LABS: Partial Thromboplastin Ratio 2.3; Partial Thromboplastin Time 61.2 Seconds (21.0-31.0)
[2019-07-08 06:18] LABS: BUN Creatinine Ratio 5.3 (10-20); Calcium 8.2 mg/dl (8.5-10.1); Est GFR (African American) 19.2; Est GFR (Non-African American) 16.5; Magnesium 1.7 mg/dl (1.8-2.4); Potassium 4.6 mmol/L (3.5-5.1)
[2019-07-08] MEDS: LACTOBACILLUS ACIDOPHILUS (FLORANEX) TAB PO SCH ×4 (07:55→20:20)
[2019-07-08] MEDS: PANTOprazole 40 MG TAB PO SCH (07:56)
[2019-07-08] MEDS: ATORVASTATIN 40 MG TAB PO SCH (07:56)
[2019-07-08] MEDS: FLUOXETINE HCL 20 MG CAP PO SCH (07:56)
[2019-07-08] MEDS: ASPIRIN 81 MG ECTAB PO SCH (07:56)
[2019-07-08] MEDS: METOPROLOL SUCC 25MG EXT REL TAB PO SCH (07:56)
[2019-07-08] MEDS: FERROUS GLUCONATE 324 MG TAB PO SCH (07:56)
[2019-07-08] MEDS: ACYCLOVIR 400 MG TAB PO SCH (07:56)
[2019-07-08] MEDS: FLUTICASONE/SALMETEROL (ADVAIR) 500/50 INH 14 PUFF INH SCH ×2 (07:57→20:20)
[2019-07-08] MEDS: GABAPENTIN 100 MG CAP PO SCH ×3 (07:57→20:21)
[2019-07-08] MEDS: ACETAMINOPHEN 325 MG TAB PO PRN (08:06)
[2019-07-08] MEDS ORDERED: MAGNESIUM SULFATE / D5W 1 GM/100 ML BAG IV ONE (09:30)
--- NOTE | 2019-07-08 16:18 | Hospitalist Progress Note ---
Date of Service July 08, 2019 Assessment & Plan (1) Hypotension: Hypotension likely due to GI loses R/O infectious source other than C diff Negative Orthostatics ? Adrenal insufficiency BP variable Blood cultures: 1/2 Coag Negative Staph--Likely contamination Repeat Blood Cx:Negative to date Urine culture growing multiple organisms Repeat Urine Cx: No growth Discontinued IV Vanco, Zosyn Acute Kidney Injury Ischemic ATN Vs Vanco toxicity Metabolic acidosis Cr:1.6 >>2.2>> 2.8 IV Lovenox and Vancomycin discontinued Renal USD:The kidneys demonstrate cortical atrophy and are without hydronephrosis. The bladder was decompressed and grossly unremarkable. Continue IV fluids as per nephrology Hold potassium supplements for now Avoid Nephrotoxic agents as able Monitor renal function Appreciate nephrology input (2) Elevated lactic acid level: lactate levels normalized with IV fluids CXR: no acute findings Possible UTI on UA/Cx (3) Possible urinary tract infection: Possible UTI on UA. Urine culture growing multiple organisms. Received Zosyn Repeat urine culture: No growth (4) Right leg DVT: Lovenox discontinued due to BARBRA Discussed with key person/oncologist Dr. Maldonado for anticoagulation options on 07/05/19 Continue IV Heparin for now (5) Weakness: Chronic weakness. Uses rolling walker to ambulate. PT/OT eval (6) Palpitations: H/O palpitations and sinus tachycardia Continue metoprolol (7) Hypomagnesemia: Due to GI loses Replete electrolytes as needed (8) C. difficile diarrhea: Reportedly diagnosed with C-diff at [facility] during recent admission 06/25/19 No history of C. difficile in the past as per patient Continue p.o. vancomycin Diarrhea slowly improving May need slow vancomycin taper given immunocompromise state (9) Multiple myeloma: H/O Multiple myeloma. Follows with Dr Maldonado oncology [place] Stated last chemo was one month ago recommended to hold Revlimid due to acute infection Needs follow up with Oncology upon discharge (10) MOHAN (obstructive sleep apnea): (11) Nocturnal hypoxemia: Noncompliant with CPAP HS Continue oxygen 3L nasal cannula HS (12) Asthma: Stable As of exacerbation Continue home inhalers DVT Px: on IV heparin Code Status Full code Disposition Plan to discharge to rehab facility when medically stable Follows with Dr Javier Herrera [facility] for routine care Subjective Patient is seen and examined at bedside States having 2 loose BMs yesterday and 1 this morning Reports poor appetite Denies chest pain, shortness of breath, dizziness, nausea, vomiting, abdominal pain Creatinine levels slightly worsened On IV fluids Review of Systems Review of Systems: All systems reviewed & are unremarkable except as noted in HPI & below Physical Exam Physical Exam: Physical Exam: Vitals signs as noted above General Appearance:Moderately built and nourished, no apparent distress Head: normocephalic, Atraumatic Eyes: normal inspection, EOMI Neck: supple, Trachea midline Respiratory/Chest: Decreased breath sounds, CTA Cardiovascular: S1, S2, No murmur Abdomen/GI:Soft, non tender, Bowel sounds present Extremities/Musculoskelatal:normal inspection, R>L B/L LE edema Neurologic/Psych:AAOX3, grossly no focal neurological deficits Skin: normal color, warm Results & Data Vital Signs (Past 12 Hours) Vital Signs Temp Pulse Pulse Resp BP BP Pulse Ox 07/08/19 15:25 37.2 C 90 16 126/80 94 07/08/19 11:30 37.2 C 104 H 19 104/69 96 07/08/19 08:00 92 H 07/08/19 07:45 37.1 C 100 H 18 119/80 96 Laboratory Results Short CBC 07/08/19 Range/Units 05:30 WBC 3.44 L (4.8-10.8) K/uL Hgb 8.4 L (12.0-16.0) g/dL Hct 26.1 L (37-47) % Plt Count 175 (130-400) K/uL BMP 07/08/19 05:30 Sodium 140 Potassium 4.6 Chloride 108 H Carbon Dioxide 25 BUN 15 Creatinine 2.80 H Glucose 89 Calcium 8.2 L
[2019-07-08] MEDS: MONTELUKAST SODIUM 10 MG TABLET PO SCH (20:21)
[2019-07-08] MEDS: MIRTAZAPINE TAB 15 MG TAB PO SCH (20:21)
[2019-07-09] MEDS: RASPBERRY SYRUP 5 ML UDP PO SCH ×5 (00:53→23:46)
[2019-07-09] MEDS: VANCOMYCIN HCL 125 MG/2.5ML SOLN PO SCH ×5 (00:53→23:46)
[2019-07-09 05:56] LABS: Hematocrit (blood only) 26.2 % (37-47); Hemoglobin 8.6 g/dL (12.0-16.0)
[2019-07-09 06:20] LABS: Partial Thromboplastin Ratio 2.1
[2019-07-09 06:30] LABS: Partial Thromboplastin Time 56.5 Seconds (21.0-31.0)
[2019-07-09 06:40] LABS: BUN Creatinine Ratio 5.5 (10-20); Creatinine Clr Calc Pharmacy 17.7 ml/min; Est GFR (African American) 17.1; Est GFR (Non-African American) 14.7; Magnesium 1.8 mg/dl (1.8-2.4); Potassium 4.3 mmol/L (3.5-5.1)
[2019-07-09] MEDS: LACTOBACILLUS ACIDOPHILUS (FLORANEX) TAB PO SCH ×4 (07:28→21:56)
[2019-07-09] MEDS: SODIUM BICARBONATE 8.4% 150 MEQ in DEXTROSE 5% 1,000 ML IV SCH ×2 (07:28→16:26)
[2019-07-09] MEDS: ACYCLOVIR 400 MG TAB PO SCH (07:49)
[2019-07-09] MEDS: ASPIRIN 81 MG ECTAB PO SCH (07:49)
[2019-07-09] MEDS: ATORVASTATIN 40 MG TAB PO SCH (07:49)
[2019-07-09] MEDS: METOPROLOL SUCC 25MG EXT REL TAB PO SCH (07:49)
[2019-07-09] MEDS: FLUOXETINE HCL 20 MG CAP PO SCH (07:49)
[2019-07-09] MEDS: PANTOprazole 40 MG TAB PO SCH (07:49)
[2019-07-09] MEDS: FERROUS GLUCONATE 324 MG TAB PO SCH (07:49)
[2019-07-09] MEDS: FLUTICASONE/SALMETEROL (ADVAIR) 500/50 INH 14 PUFF INH SCH ×2 (07:50→21:55)
[2019-07-09] MEDS: GABAPENTIN 100 MG CAP PO SCH ×3 (07:50→21:56)
[2019-07-09] MEDS: HEPARIN SODIUM/DEXTROSE 25,000 UNITS/500 ML BAG IV SCH (07:54)
[2019-07-09] MEDS: ONDANSETRON INJ 2 MG/ML 2 ML VIAL IV PRN ×2 (08:57→16:30)
--- NOTE | 2019-07-09 15:53 | Nephrology Progress Note ---
Date of Service July 09, 2019 Assessment & Plan (1) BARBRA (acute kidney injury): nonoliguric ischemic atn versus atn from vanco toxicity. baseline creatinine 0.9; at baseline on 07/02 presentation. then 07/05 up abruptly to 1.6, today to 3.1. not oliguric. while her rate of worsening has not really slowed and while creatinine continues to climb I am hopeful she will plateau soon. did have 1 doses vancomycin IV 1750 mg 1900 on 07/03, then on 07/04 at 1100 each 1250 mg iv and 1 dose on 07/05 at 0500; stat 1800 vanco level 07/06 is 22 (36 hrs after last/4th dose) -daily bmp -cont nephrotoxin avoidance -cont bicarb gtt current rate (2) Hypotension: -her C diff at outside facility [facility] was negative; however pt on po vanco per oncology OP recommendations -reluctant to stop current BB dose d/t a fib and would continue -on bicarb gtt for now and tolerating -would evaluate her for adrenal insufficiency but her hypoalbuminemia makes test results impossible to interpret reliably: she could have chronic tertiary adrenal insufficiency from repeated glucocorticoid exposure for CA care; consider empiric 3 mg daily prednisone and 0.1 mg daily fludroco rtisone>>consider hematology query of how often adrenal insufficiency seen/treated in pts on CTX for MM -get reliable count of BM daily if possible Subjective seen on rounds this am; no sob; some exertional dyspnea w/ transfers; no voiding complaints; 2 bm yesterday no abd pain; minimal appetite, no f/c Review of Systems 2 Review of Systems: All systems reviewed & are unremarkable except as noted in HPI & below Physical Exam Constitutional: well developed and well nourished; no acute distress (sitting up in chair on RA) Eyes: EOM intact bilaterally ENMT: Ears: no external ear abnormality Nose: no external nose abnormality Mouth: + dry oral mucous membranes Neck: no nuchal rigidity Respiratory: normal respiratory effort Auscultation: + diminished lung sounds Cardiovascular: Rate/Rhythm: regular rate and regular rhythm Extremities: + edema (1-2+ BL) Gastrointestinal (Abdomen): Inspection/Auscultation: normal bowel sounds Percussion/Palpation: abdomen soft; abdomen nontender Musculoskeletal: Extremities: strength 5/5 throughout Skin: no rashes, warm and dry Neurologic: grant, fluent speech, no tremor Psychiatric: A+Ox3, euthymic affect Speech: normal rate/rhythm/volume of speech Results & Data Vital Signs (Past 12 Hours) Vital Signs Temp Pulse Resp BP BP Pulse Ox 07/09/19 15:37 36.9 C 98 H 16 119/66 97 07/09/19 11:29 36.8 C 114 H 19 114/73 96 07/09/19 07:15 36.8 C 97 H 18 126/77 94 Laboratory Results 07/09/19 05:40 07/09/19 05:40
--- NOTE | 2019-07-09 18:21 | Hospitalist Progress Note ---
Date of Service July 09, 2019 Assessment & Plan (1) Hypotension: Hypotension likely due to GI loses R/O infectious source other than C diff Negative Orthostatics ? Adrenal insufficiency BP better Blood cultures: / Coag Negative Staph--Likely contamination Repeat Blood Cx:Negative to date Urine culture growing multiple organisms Repeat Urine Cx:Yeast Discontinued IV Vanco, Zosyn Acute Kidney Injury Ischemic ATN Vs Vanco toxicity Metabolic acidosis Cr:1.6 >>2.2>> 2.8>>3.08 IV Lovenox and Vancomycin discontinued Renal USD:The kidneys demonstrate cortical atrophy and are without hydronephrosis. The bladder was decompressed and grossly unremarkable. Continue IV fluids as per nephrology Hold potassium supplements for now Avoid Nephrotoxic agents as able Monitor renal function Appreciate nephrology input Creatinine levels are now plateaued yet (2) Elevated lactic acid level: lactate levels normalized with IV fluids CXR: no acute findings Possible UTI on UA/Cx (3) Possible urinary tract infection: Possible UTI on UA. Urine culture growing multiple organisms. Received Zosyn Repeat urine culture: Yeast (4) Right leg DVT: Lovenox discontinued due to BARBRA Discussed with documentation billing clerk/oncologist Dr. Maldonado for anticoagulation options on 07/05/19 Continue IV Heparin for now until renal function improves (5) Weakness: Chronic weakness. Uses rolling walker to ambulate. PT/OT eval (6) Palpitations: H/O palpitations and sinus tachycardia Continue metoprolol (7) Hypomagnesemia: Due to GI loses Replete electrolytes as needed (8) C. difficile diarrhea: Reportedly diagnosed with C-diff at [facility] during recent admission 06/25/19 No history of C. difficile in the past as per patient Continue p.o. vancomycin May need slow vancomycin taper given immunocompromise state States having formed BM today (9) Multiple myeloma: H/O Multiple myeloma. Follows with Dr Maldonado oncology [place] Stated last chemo was one month ago recommended to hold Revlimid due to acute infection Needs follow up with Oncology upon discharge (10) MOHAN (obstructive sleep apnea): (11) Nocturnal hypoxemia: Noncompliant with CPAP HS Continue oxygen 3L nasal cannula HS (12) Asthma: Stable As of exacerbation Continue home inhalers DVT Px: on IV heparin Code Status Full code Disposition Plan to discharge to rehab facility when medically stable Follows with Dr Javier [facility] for routine care Subjective Patient is seen and examined at bedside Reports nausea earlier today but no vomiting Had formed BM today Has poor appetite Denies chest pain, shortness of breath, dizziness, nausea, vomiting, abdominal pain Creatinine levels have not plateaued yet Review of Systems Review of Systems: All systems reviewed & are unremarkable except as noted in HPI & below Physical Exam Physical Exam: Physical Exam: Vitals signs as noted above General Appearance:Moderately built and nourished, no apparent distress Head: normocephalic, Atraumatic Eyes: normal inspection, EOMI Neck: supple, Trachea midline Respiratory/Chest: Decreased breath sounds, CTA Cardiovascular: S1, S2, No murmur Abdomen/GI:Soft, non tender, Bowel sounds present Extremities/Musculoskelatal:normal inspection, R>L B/L LE edema Neurologic/Psych:AAOX3, grossly no focal neurological deficits Skin: normal color, warm Results & Data Vital Signs (Past 12 Hours) Vital Signs Temp Pulse Resp BP BP Pulse Ox 07/09/19 15:37 36.9 C 98 H 16 119/66 97 07/09/19 11:29 36.8 C 114 H 19 114/73 96 07/09/19 07:15 36.8 C 97 H 18 126/77 94 Laboratory Results Short CBC 07/09/19 Range/Units 05:40 Hgb 8.6 L (12.0-16.0) g/dL Hct 26.2 L (37-47) % BMP 07/09/19 05:40 Sodium 141 Potassium 4.3 Chloride 102 Carbon Dioxide 33 H BUN 17 Creatinine 3.08 H Glucose 92 Calcium 8.0 L
[2019-07-09] MEDS: MONTELUKAST SODIUM 10 MG TABLET PO SCH (21:56)
[2019-07-09] MEDS: MIRTAZAPINE TAB 15 MG TAB PO SCH (21:56)
[2019-07-09] MEDS: ACETAMINOPHEN 325 MG TAB PO PRN (23:46)
[2019-07-10] MEDS: SODIUM BICARBONATE 8.4% 150 MEQ in DEXTROSE 5% 1,000 ML IV SCH ×2 (01:30→10:31)
[2019-07-10 05:59] LABS: Hematocrit (blood only) 24.1 % (37-47); Hemoglobin 7.6 g/dL (12.0-16.0); Mean Corpuscular Hemoglobin 28.5 pg (25-34); Mean Corpuscular Hgb Conc 31.5 g/dL (32-36); Mean Corpuscular Volume 90.3 fL (80-100); Mean Platelet Volume 9.9 fL (7.4-10.4); Platelet Count 153 K/uL (130-400); RDW Coefficient of Variation 16.5 % (11.5-14.5); RDW Standard Deviation 54.3 fL (36.4-46.3); Red Blood Count 2.67 M/uL (4.2-5.4); White Blood Count 3.96 K/uL (4.8-10.8)
[2019-07-10] MEDS: RASPBERRY SYRUP 5 ML UDP PO SCH ×4 (06:04→23:39)
[2019-07-10] MEDS: VANCOMYCIN HCL 125 MG/2.5ML SOLN PO SCH ×4 (06:04→23:39)
[2019-07-10 06:22] LABS: Partial Thromboplastin Ratio 2.5
[2019-07-10 06:39] LABS: Partial Thromboplastin Time 67.2 Seconds (21.0-31.0)
[2019-07-10 06:43] LABS: BUN Creatinine Ratio 5.4 (10-20); Calcium 7.2 mg/dl (8.5-10.1); Creatinine Clr Calc Pharmacy 16.3 ml/min; Est GFR (African American) 15.8; Est GFR (Non-African American) 13.7; Magnesium 1.7 mg/dl (1.8-2.4); Potassium 3.7 mmol/L (3.5-5.1)
[2019-07-10] MEDS: ASPIRIN 81 MG ECTAB PO SCH (08:01)
[2019-07-10] MEDS: ATORVASTATIN 40 MG TAB PO SCH (08:01)
[2019-07-10] MEDS: LACTOBACILLUS ACIDOPHILUS (FLORANEX) TAB PO SCH ×4 (08:01→20:59)
[2019-07-10] MEDS: FERROUS GLUCONATE 324 MG TAB PO SCH (08:01)
[2019-07-10] MEDS: GABAPENTIN 100 MG CAP PO SCH ×3 (08:01→21:00)
[2019-07-10] MEDS: ACYCLOVIR 400 MG TAB PO SCH (08:02)
[2019-07-10] MEDS: PANTOprazole 40 MG TAB PO SCH (08:02)
[2019-07-10] MEDS: METOPROLOL SUCC 25MG EXT REL TAB PO SCH (08:02)
[2019-07-10] MEDS: FLUOXETINE HCL 20 MG CAP PO SCH (08:02)
[2019-07-10] MEDS: FLUTICASONE/SALMETEROL (ADVAIR) 500/50 INH 14 PUFF INH SCH ×2 (08:02→20:58)
[2019-07-10] MEDS: ACETAMINOPHEN 325 MG TAB PO PRN ×2 (09:18→19:33)
[2019-07-10] MEDS: MAGNESIUM CHLORIDE 64MG DELAYED REL TAB PO SCH ×2 (10:53→21:00)
[2019-07-10 13:45] LABS: Partial Thromboplastin Ratio 1.7
[2019-07-10 13:48] LABS: Partial Thromboplastin Time 47.2 Seconds (21.0-31.0)
[2019-07-10] MEDS: ONDANSETRON INJ 2 MG/ML 2 ML VIAL IV PRN (18:15)
--- NOTE | 2019-07-10 19:00 | Nephrology Progress Note ---
Date of Service July 10, 2019 Assessment & Plan (1) BARBRA (acute kidney injury): nonoliguric ischemic atn versus atn from vanco toxicity. baseline creatinine 0.9; at baseline on 07/02 presentation. then 07/05 up abruptly to 1.6, today to 3.1. not oliguric. while her rate of worsening has not really slowed and while creatinine continues to climb I remain hopeful she will plateau soon. did have 1 dose vancomycin IV 1750 mg 1900 on 07/03, then on 07/04 at 1100 1250 mg iv and 1 dose on 07/05 at 0500 same mg; stat 1800 vanco level 07/06 is 22 (36 hrs after last/3rd dose) -daily bmp -cont nephrotoxin avoidance -no ivf overnight; resume prn hypotension (2) Hypotension: -her C diff at outside facility [place] was negative; however pt on po vanco per oncology OP recommendations -reluctant to stop current BB dose d/t a fib and would continue -stop bicarb gtt ON - may need to restart in am -would evaluate her for adrenal insufficiency but her hypoalbuminemia makes test results impossible to interpret reliably: she could have chronic tertiary adrenal insufficiency from repeated glucocorticoid exposure for CA care; consider empiric 3 mg daily prednisone and 0.1 mg daily fludrocortisone>>consider hematology query of how often adrenal insufficiency se en/treated in pts on CTX for MM -get reliable count of BM daily if possible - fewer to day (3) Anemia of chronic disease: was 11.5 on presentation hgb; now 7.6 today; at least some dilutional (all 3 lines dropping but none as far as hgb) -not a candidate for epo unless hematology clears her d/t myeloma -transfuse prn -daily cbc Present on Admission?: Yes Subjective feels more edema today and sick to her stomach, tired. wants to go back to bed but has been up for some time. bm down to 2 today. ivf lowered to 50 ml/hr this am d/t puffiness Review of Systems Review of Systems: All systems reviewed & are unremarkable except as noted in HPI & below Physical Exam Constitutional: well developed and well nourished; no acute distress (sitting up in chair on RA) Eyes: EOM intact bilaterally ENMT: Ears: no external ear abnormality Nose: no external nose abnormality Mouth: + dry oral mucous membranes Neck: no nuchal rigidity Respiratory: normal respiratory effort Auscultation: + diminished lung sounds Cardiovascular: Rate/Rhythm: regular rate and regular rhythm Extremities: + edema (2+ BLE and some hand swelling) Gastrointestinal (Abdomen): Inspection/Auscultation: normal bowel sounds Percussion/Palpation: abdomen soft; abdomen nontender Musculoskeletal: Extremities: strength 5/5 throughout Skin: no rashes, warm and dry Neurologic: grant, fluent speech, no tremor Psychiatric: A+Ox3, euthymic affect Speech: normal rate/rhythm/volume of speech Results & Data Vital Signs (Past 12 Hours) Vital Signs Temp Pulse Pulse Pulse Resp BP Pulse Ox 07/10/19 16:00 96 H 07/10/19 15:12 36.5 C 100 H 18 113/63 94 07/10/19 12:26 101 H 103/69 07/10/19 11:40 36.5 C 97 H 18 88/64 L 95 07/10/19 10:08 98 H 100/70 07/10/19 07:55 37.0 C 95 H 18 86/53 L 90 07/10/19 07:40 89 Laboratory Results 07/10/19 05:37 07/10/19 05:37
--- NOTE | 2019-07-10 20:49 | Hospitalist Progress Note ---
Date of Service July 10, 2019 Assessment & Plan (1) Hypotension: Hypotension likely due to GI loses R/O infectious source other than C diff Negative Orthostatics ? Adrenal insufficiency BP Variable Blood cultures: 1/2 Coag Negative Staph--Likely contamination Repeat Blood Cx:Negative to date Urine culture growing multiple organisms Repeat Urine Cx:Yeast Discontinued IV Vanco, Zosyn Hb dropped to 7.6 today--likely dilutional No obvious bleeding issues Monitor CBC Acute Kidney Injury Ischemic ATN Vs Vanco toxicity Metabolic acidosis Cr:1.6 >>2.2>> 2.8>>3.28 IV Lovenox and Vancomycin discontinued Renal USD:The kidneys demonstrate cortical atrophy and are without hydron ephrosis. The bladder was decompressed and grossly unremarkable. Hold potassium supplements for now Avoid Nephrotoxic agents as able Monitor renal function Appreciate nephrology input Decrease IV fluids as patient developing volume overload (2) Elevated lactic acid level: lactate levels normalized with IV fluids CXR: no acute findings Possible UTI on UA/Cx (3) Possible urinary tract infection: Possible UTI on UA. Urine culture growing multiple organisms. Received Zosyn Repeat urine culture: Yeast (4) Right leg DVT: Lovenox discontinued due to BARBRA Discussed with upholstered goods crafter/oncologist Dr. Maldonado for anticoagulation options on 07/05/19 Continue IV Heparin for now until renal function improves (5) Weakness: Chronic weakness. Uses rolling walker to ambulate. PT/OT eval (6) Palpitations: H/O palpitations and sinus tachycardia Continue metoprolol (7) Hypomagnesemia: Due to GI loses Replete electrolytes as needed (8) C. difficile diarrhea: Reportedly diagnosed with C-diff at [facility] during recent admission 06/25/19 No history of C. difficile in the past as per patient Continue p.o. vancomycin May need slow vancomycin taper given immunocompromise state Diarrhea improved (9) Multiple myeloma: H/O Multiple myeloma. Follows with Dr Maldonado oncology [place] Stated last chemo was one month ago recommended to hold Revlimid due to acute infection Needs follow up with Oncology upon discharge (10) MOHAN (obstructive sleep apnea): (11) Nocturnal hypoxemia: Noncompliant with CPAP HS Continue oxygen 3L nasal cannula HS (12) Asthma: Stable As of exacerbation Continue home inhalers DVT Px: on IV heparin Code Status Full code Disposition Plan to discharge to rehab facility when medically stable Follows with Dr Javier Atkins [facility] for routine care Subjective Patient is seen and examined at bedside Patient reports feeling tired Had semi-formed bowel movement today Developing volume overload Creatinine levels continues to rise Reports nausea but no vomiting today Denies chest pain, SOB, dizziness, abdominal pain Review of Systems Review of Systems: All systems reviewed & are unremarkable except as noted in HPI & below Physical Exam Physical Exam: Physical Exam: Vitals signs as noted above General Appearance:Moderately built and nourished, no apparent distress Head: normocephalic, Atraumatic Eyes: normal inspection, EOMI Neck: supple, Trachea midline Respiratory/Chest: Decreased breath sounds, CTA Cardiovascular: S1, S2, No murmur Abdomen/GI:Soft, non tender, Bowel sounds present Extremities/Musculoskelatal:normal inspection, R>L B/L LE and UE edema Neurologic/Psych:AAOX3, grossly no focal neurological deficits Skin: normal color, warm Results & Data Vital Signs (Past 12 Hours) Vital Signs Temp Pulse Pulse Pulse Resp BP Pulse Ox 07/10/19 19:20 36.9 C 102 H 18 113/67 90 07/10/19 16:00 96 H 07/10/19 15:12 36.5 C 100 H 18 113/63 94 07/10/19 12:26 101 H 103/69 07/10/19 11:40 36.5 C 97 H 18 88/64 L 95 07/10/19 10:08 98 H 100/70 Laboratory Results Short CBC 07/10/19 Range/Units 05:37 WBC 3.96 L (4.8-10.8) K/uL Hgb 7.6 L (12.0-16.0) g/dL Hct 24.1 L (37-47) % Plt Count 153 (130-400) K/uL BMP 07/10/19 05:37 Sodium 140 Potassium 3.7 Chloride 99 Carbon Dioxide 39 H BUN 18 Creatinine 3.28 H Glucose 88 Calcium 7.2 L
[2019-07-10] MEDS: HEPARIN SODIUM/DEXTROSE 25,000 UNITS/500 ML BAG IV SCH (20:57)
[2019-07-10] MEDS: MONTELUKAST SODIUM 10 MG TABLET PO SCH (20:59)
[2019-07-10] MEDS: MIRTAZAPINE TAB 15 MG TAB PO SCH (21:00)
[2019-07-11] MEDS: VANCOMYCIN HCL 125 MG/2.5ML SOLN PO SCH ×3 (05:29→17:27)
[2019-07-11] MEDS: RASPBERRY SYRUP 5 ML UDP PO SCH ×3 (05:29→17:27)
[2019-07-11 05:56] LABS: Hematocrit (blood only) 26.2 % (37-47); Hemoglobin 8.5 g/dL (12.0-16.0); Mean Corpuscular Hemoglobin 28.8 pg (25-34); Mean Corpuscular Hgb Conc 32.4 g/dL (32-36); Mean Corpuscular Volume 88.8 fL (80-100); Mean Platelet Volume 9.8 fL (7.4-10.4); Platelet Count 174 K/uL (130-400); RDW Coefficient of Variation 16.6 % (11.5-14.5); RDW Standard Deviation 54.1 fL (36.4-46.3); Red Blood Count 2.95 M/uL (4.2-5.4); White Blood Count 4.14 K/uL (4.8-10.8)
[2019-07-11 06:30] LABS: Partial Thromboplastin Time 54.1 Seconds (21.0-31.0)
[2019-07-11 06:35] LABS: BUN Creatinine Ratio 5.3 (10-20); Calcium 7.5 mg/dl (8.5-10.1); Est GFR (African American) 14.4; Est GFR (Non-African American) 12.4; Potassium 3.4 mmol/L (3.5-5.1)
[2019-07-11] MEDS ORDERED: MICONAZOLE NITRATE POWDER 43 GM EXT PRN (07:53)
[2019-07-11] MEDS: PANTOprazole 40 MG TAB PO SCH (08:01)
[2019-07-11] MEDS: FLUOXETINE HCL 20 MG CAP PO SCH (08:01)
[2019-07-11] MEDS: ACYCLOVIR 400 MG TAB PO SCH (08:01)
[2019-07-11] MEDS: ASPIRIN 81 MG ECTAB PO SCH (08:01)
[2019-07-11] MEDS: FLUTICASONE/SALMETEROL (ADVAIR) 500/50 INH 14 PUFF INH SCH ×2 (08:01→20:04)
[2019-07-11] MEDS: FERROUS GLUCONATE 324 MG TAB PO SCH (08:01)
[2019-07-11] MEDS: ATORVASTATIN 40 MG TAB PO SCH (08:01)
[2019-07-11] MEDS: GABAPENTIN 100 MG CAP PO SCH ×3 (08:01→20:05)
[2019-07-11] MEDS: LACTOBACILLUS ACIDOPHILUS (FLORANEX) TAB PO SCH ×4 (08:02→20:06)
[2019-07-11] MEDS: MAGNESIUM CHLORIDE 64MG DELAYED REL TAB PO SCH ×2 (08:02→20:06)
[2019-07-11] MEDS: METOPROLOL SUCC 25MG EXT REL TAB PO SCH (08:03)
[2019-07-11] MEDS ORDERED: Nursing to Pharmacy Communication ONE (08:57)
[2019-07-11] MEDS ORDERED: POTASSIUM CHLORIDE 20 MEQ TABCR PO ONE (10:00)
--- NOTE | 2019-07-11 11:07 | Hospitalist Progress Note ---
Date of Service July 11, 2019 Assessment & Plan (1) Hypotension: Hypotension likely due to GI loses R/O infectious source other than C diff Negative Orthostatics Blood cultures: 07/05 Coag Negative Staph--Likely contamination Repeat Blood Cx:Negative to date Urine culture growing multiple organisms Repeat Urine Cx:Yeast She received 2 L normal saline in the emergency room Blood pressure has been normal since admission Blood pressure medications is on hold (2) BARBRA (acute kidney injury): Secondary to ischemic ATN from hypotension and or Vanco toxicity Received intravenous vancomycin due to 1 out of 2 blood culture positive for coa gulase-negative staph not lugdunensis She received 1 dose vancomycin IV 1750 mg 1900 on 07/03, then on 07/04 at 1100 1250 mg iv and 1 dose on 07/05 at 0500 same mg; stat 1800 vanco level 07/06 is 22 (36 hrs after last/3rd dose) Metabolic acidosis secondary to BARBRA Creatinine has been creeping up at 3.55 as of 07/11/2019 IV Lovenox and Vancomycin discontinued Renal USD:The kidneys demonstrate cortical atrophy and are without hydronephrosis. The bladder was decompressed and grossly unremarkable. Avoid Nephrotoxic agents as able Monitor renal function Appreciate nephrology input and recommendation 20 mEq KCl was given due to hypokalemia of 3.4 (3) Elevated lactic acid level: Doubt any sepsis lactate levels normalized with IV fluids CXR: no acute findings Possible UTI on UA/Cx (4) Possible urinary tract infection: Possible UTI on UA. Urine culture growing multiple organisms. Received Zosyn Repeat urine culture: Yeast Antibiotics have been discontinued (5) Right leg DVT: Lovenox discontinued due to BARBRA Discussed with ocean lifeguard/oncologist Dr. Maldonado for anticoagulation options on 07/05/19 Continue IV Heparin for now until renal function improves Like to start oral anticoagulation soon as kidney function has been improving (6) Weakness: Chronic weakness. Uses rolling walker to ambulate. PT/OT eval (7) Palpitations: H/O palpitations and sinus tachycardia Continue metoprolol (8) Hypomagnesemia: Due to GI loses Replete electrolytes as needed (9) C. difficile diarrhea: Reportedly diagnosed with C-diff at [facility] during recent admission 06/25/19 No history of C. difficile in the past as per patient Continue p.o. vancomycin May need slow vancomycin taper given immunocompromise state Diarrhea improved (10) Multiple myeloma: H/O Multiple myeloma. Follows with Dr Maldonado oncology [place] Stated last chemo was one month ago recommended to hold Revlimid due to acute infection Needs follow up with Oncology upon discharge (11) MOHAN (obstructive sleep apnea): (12) Nocturnal hypoxemia: Noncompliant with CPAP HS Continue oxygen 3L nasal cannula HS (13) Asthma: Stable As of exacerbation Continue home inhalers DVT Px: on IV heparin Code Status Full code Disposition Plan to discharge to rehab facility when medically stable Follows with Dr Javier Atkins [facility] for routine care Subjective 07/11/2019 The patient was seen and examined in telemetry unit She has been complaining of vague symptoms involving pain in multiple joints Denies any acute distress Review of Systems Review of Systems: All systems reviewed and are unremarkable except as noted below Constitutional: + body aches, + fatigue and + weakness Pain involving multiple joints but no acute arthritis Physical Exam Physical Exam: Lying in bed comfortably with generalized weakness Constitutional: well developed, well nourished and + obese; no acute distress (sitting up in chair on RA) Eyes: EOM intact bilaterally ENMT: Ears: no external ear abnormality Nose: no external nose abnormality Mouth: + dry oral mucous membranes Neck: no nuchal rigidity Respiratory: normal respiratory effort Auscultation: + diminished lung sounds Cardiovascular: Rate/Rhythm: regular rate and regular rhythm Extremities: + edema (2+ BLE and some hand swelling) Gastrointestinal (Abdomen): Inspection/Auscultation: normal bowel sounds Percussion/Palpation: abdomen soft; abdomen nontender Musculoskeletal: No acute arthritis involving any joints Skin: no rashes, warm and dry Psychiatric: A+Ox3, euthymic affect Speech: normal rate/rhythm/volume of speech Lymphatic: no cervical or axillary lymphadenopathy Results & Data Vital Signs (Past 12 Hours) Vital Signs Temp Pulse Pulse Resp BP Pulse Ox 07/11/19 08:08 37.2 C 105 H 20 119/77 93 07/11/19 07:30 96 H 07/11/19 04:12 37.3 C 101 H 22 106/71 94 07/10/19 23:59 100 H 07/10/19 23:35 37.5 C 99 H 20 99/64 L 94 Laboratory Results Short CBC 07/11/19 Range/Units 05:40 WBC 4.14 L (4.8-10.8) K/uL Hgb 8.5 L (12.0-16.0) g/dL Hct 26.2 L (37-47) % Plt Count 174 (130-400) K/uL [facility] 07/11/19 05:40 Sodium 141 Potassium 3.4 L Chloride 96 L Carbon Dioxide 37 H BUN 19 H Creatinine 3.55 H Glucose 72 Calcium 7.5 L Medications Administered Current Inpatient Medications Acetaminophen (Tylenol) 650 mg PO Q4H PRN PRN Reason: Pain or Fever Stop: 08/01/19 16:41 Last Admin: 07/10/19 19:33 Dose: 650 mg Documented by: Acyclovir (Zovirax) 400 mg PO DAILY [facility] Stop: 08/02/19 08:59 Last Admin: 07/11/19 08:01 Dose: 400 mg Documented by: Albuterol (Ventolin Hfa) 1 puffs INH Q6H PRN PRN Reason: Shortness Of Breath Or Wheezing Stop: 08/01/19 16:41 Aspirin ([facility]) [facility]: 08/02/19 08:59 Last Admin: 07/11/19 08:01 Dose: 81 mg Documented by: Atorvastatin Calcium (Lipitor) 40 mg PO DAILY [facility] Stop: 08/02/19 08:59 Last Admin: 07/11/19 08:01 Dose: 40 mg Documented by: Ferrous Gluconate (Ferrous Gluconate) 324 mg PO DAILY [facility] Stop: 08/02/19 08:59 Last Admin: 07/11/19 08:01 Dose: 324 mg Documented by: Fluoxetine HCl (Prozac) 40 mg PO QAM [facility] Stop: 08/02/19 08:59 Last Admin: 07/11/19 08:01 Dose: 40 mg Documented by: Gabapentin (Neurontin) 100 mg PO TID [facility] Stop: 08/01/19 20:59 Last Admin: 07/11/19 08:01 Dose: 100 mg Documented by: Heparin Sodium/Dextrose (Heparin Sodium/Dextrose) 25,000 units in 500 mls @ 13 mls/hr IV .Q24H [facility]; Protocol Stop: 08/04/19 08:14 Last Titration: 07/11/19 06:58 Dose: 650 units/hr, 13 mls/hr Documented by: Lactobacillus Acidophilus (Floranex) 4 tab PO QIDM [facility] Stop: 08/05/19 20:59 Last Admin: 07/11/19 11:04 Dose: 4 tab Documented by: Magnesium Chloride (Slow-Mag) 64 mg PO BID [facility] Stop: 08/09/19 09:59 Last Admin: 07/11/19 08:02 Dose: 64 mg Documented by: Metoprolol Succinate (Toprol Xl) 12.5 mg PO QAM [facility] Stop: 08/02/19 08:59 Last Admin: 07/11/19 08:03 Dose: 12.5 mg Documented by: Miconazole Nitrate (Desenex) 1 appln EXT PRN PRN PRN Reason: Affected Skin Folds Stop: 08/10/19 07:52 Mirtazapine (Remeron) 15 mg PO [facility] Stop: 08/01/19 20:59 Last Admin: 07/10/19 21:00 Dose: 15 mg Documented by: Montelukast Sodium (Singulair) 10 mg PO [facility] Stop: 08/01/19 20:59 Last Admin: 07/10/19 20:59 Dose: 10 mg Documented by: Nystatin (Mycostatin) 1 appln EXT BID PRN PRN Reason: Affected Skin Folds Stop: 08/01/19 17:19 Last Admin: 07/02/19 18:19 Dose: 1 appln Documented by: Ondansetron HCl (Zofran) 4 mg IV Q6H PRN PRN Reason: Nausea And Vomiting Stop: 08/01/19 16:41 Last Admin: 07/10/19 18:15 Dose: 4 mg Documented by: Pantoprazole Sodium (Protonix) 40 mg PO DAILY [facility]; Protocol Stop: 08/02/19 08:59 Last Admin: 07/11/19 08:01 Dose: 40 mg Documented by: Potassium Chloride (Klor-Con M20) 20 meq PO BID [facility] Stop: 08/01/19 20:59 Last Admin: 07/07/19 08:39 Dose: 20 meq Documented by: Raspberry (Raspberry) 5 ml PO Q6 [facility] Stop: 07/16/19 17:59 Last Admin: 07/11/19 11:04 Dose: 5 ml Documented by: Fluticasone/Salmeterol (Advair Diskus 500/50) 1 puffs INH BID [facility]; Protocol Stop: 08/01/19 20:59 Last Admin: 07/11/19 08:01 Dose: 1 puffs Documented by: Tramadol HCl (Ultram) 50 mg PO Q6H PRN PRN Reason: Pain Stop: 08/01/19 16:41 Vancomycin HCl (Vancomycin Hcl) 125 mg PO Q6 [facility] Stop: 07/12/19 17:59 Last Admin: 07/11/19 11:04 Dose: 125 mg Documented by:
[2019-07-11 11:15] LABS: Appearance Urine Clear (Clear); Bacteria Urine Automated Negative (Negative); Bilirubin Urine Negative (Negative); Blood Urine Trace (Negative); Color Urine Yellow; Epithelial Cell Urine Auto >30 /lpf (0-5); Glucose Urine UA Negative (Negative); Ketones Urine Negative (Negative); Leukocyte Esterase Urine Negative (Negative); Nitrite Urine Negative (Negative); Protein Urine Negative (Negative); Specific Gravity Urine 1.004 (1.000-1.030); Urobilinogen Urine Negative (Negative); pH Urine >= 9.0 (4.5-7.5)
[2019-07-11 11:28] LABS: RBC Urine Automated 0-4 /hpf (0-4)
[2019-07-11 11:39] LABS: Creatinine Urine Random < 13.0 mg/dl; Total Protein Urine Random 14.3 mg/dl (0-11.9)
--- NOTE | 2019-07-11 13:51 | Nephrology Progress Note ---
Date of Service July 11, 2019 Assessment & Plan (1) BARBRA (acute kidney injury): nonoliguric ischemic atn versus atn from vanco toxicity. baseline creatinine 0.9; at baseline on 07/02 presentation. then 07/05 up abruptly to 1.6, today further up to 3.6. not oliguric. concerning she is showing no sign of plateau did have 1 dose vancomycin IV 1750 mg 1900 on 07/03, then on 07/04 at 1100 1250 mg iv and 1 dose on 07/05 at 0500 same mg; stat 1800 vanco level 07/06 is 22 (36 hrs after last/3rd dose) -daily bmp -cont nephrotoxin avoidance -off of ivf x 2 days; bp stable but worsening -urine sediment concerning >> some blood, 500 mg proteinuria on presentation; rechecked sediment to day and more protein, less creatinine to where they cannot calculate prot/creat ratio >check CXR/ consider lasix given her airway sounds-has had no lasix this admission/ may need; will also order serologies (2) Hypotension: -her C diff at outside facility [facility] was negative; however pt on po vanco per oncology OP recommendations -reluctant to stop current BB dose d/t a fib and would continue -would evaluate her for adrenal insufficiency but her hypoalbuminemia makes test results impossible to interpret reliably: she could have chronic tertiary adrenal insufficiency from repeated glucocorticoid exposure for CA care; consider empiric 3 mg daily prednisone and 0.1 mg daily fludrocortisone>>consider hematology query of how often adrenal insufficiency seen/treated in pts on CTX for MM -get reliable count of BM daily if possible - fewer to day (3) Anemia of chronic disease: was 11.5 on presentation hgb; now 9 today; at least some dilutional (all 3 lines dropping but none as far as hgb) - improved slightly -not a candidate for epo unless hematology clears her d/t myeloma -transfuse prn -daily cbc Subjective feeling poorly again today; feels weak; less puffy but still feels swollen; no voiding complaints; some N/ GI upset/poor appetite; no palpitations; no sob or orthopnea + cough non productive Review of Systems Review of Systems: All systems reviewed & are unremarkable except as noted in HPI & below Physical Exam Constitutional: well developed and well nourished; no acute distress (lying HOB 30 degr on RA) Eyes: EOM intact bilaterally ENMT: Ears: no external ear abnormality Nose: no external nose abnormality Mouth: + dry oral mucous membranes Neck: no nuchal rigidity Respiratory: normal respiratory effort Auscultation: + diminished lung sounds and + rhonchi coarse upper air way sounds Cardiovascular: Rate/Rhythm: regular rhythm and + tachycardic Extremities: + edema (2+ BLE and less hand swelling) Gastrointestinal (Abdomen): Inspection/Auscultation: normal bowel sounds Percussion/Palpation: abdomen soft; abdomen nontender Musculoskeletal: Extremities: strength 5/5 throughout Skin: no rashes, warm and dry Neurologic: grant, fluent speech Psychiatric: A+Ox3, euthymic affect Speech: normal rate/rhythm/volume of speech Results & Data Vital Signs (Past 12 Hours) Vital Signs Temp Pulse Pulse Resp BP Pulse Ox 07/11/19 11:20 36.7 C 96 H 20 101/65 95 07/11/19 08:08 37.2 C 105 H 20 119/77 93 07/11/19 07:30 96 H 07/11/19 04:12 37.3 C 101 H 22 106/71 94 Laboratory Results 07/11/19 05:40 07/11/19 05:40
--- NOTE | 2019-07-11 15:33 | XRay Report ---
XR chest 2V PA/lateral CLINICAL HISTORY: update volume status dyspnea COMPARISON STUDY: 07/02/2019 FINDINGS: The bones soft tissues and hemidiaphragms are normal. The cardiomediastinal silhouette is n ormal. The lungs are clear. The pulmonary vasculature is normal. IMPRESSION: Negative chest. ACT 112: Negative or not required by law. The above report was generated using voice recognition software. It may contain grammatical, syntax or spelling errors. Electronically signed by: Florentino Breaux M.D. 07/11/2019 3:31 PM
[2019-07-11] MEDS: ACETAMINOPHEN 325 MG TAB PO PRN (15:43)
[2019-07-11] MEDS: MIRTAZAPINE TAB 15 MG TAB PO SCH (20:05)
[2019-07-11] MEDS: MONTELUKAST SODIUM 10 MG TABLET PO SCH (20:06)
[2019-07-11] MEDS: HEPARIN SODIUM/DEXTROSE 25,000 UNITS/500 ML BAG IV SCH (21:57)
[2019-07-12] MEDS: TRAMADOL HCL 50 MG TABLET PO PRN ×3 (00:02→20:02)
[2019-07-12] MEDS: VANCOMYCIN HCL 125 MG/2.5ML SOLN PO SCH ×3 (00:02→11:17)
[2019-07-12] MEDS: RASPBERRY SYRUP 5 ML UDP PO SCH ×3 (00:02→11:17)
[2019-07-12 05:52] LABS: Hematocrit (blood only) 24.9 % (37-47); Hemoglobin 7.9 g/dL (12.0-16.0); Mean Corpuscular Hemoglobin 28.5 pg (25-34); Mean Corpuscular Hgb Conc 31.7 g/dL (32-36); Mean Corpuscular Volume 89.9 fL (80-100); Platelet Count 165 K/uL (130-400); RDW Coefficient of Variation 16.5 % (11.5-14.5); RDW Standard Deviation 55.3 fL (36.4-46.3); Red Blood Count 2.77 M/uL (4.2-5.4); White Blood Count 3.82 K/uL (4.8-10.8)
[2019-07-12 06:14] LABS: Partial Thromboplastin Ratio 2.3
[2019-07-12 06:22] LABS: BUN Creatinine Ratio 5.3 (10-20); Calcium 7.6 mg/dl (8.5-10.1); Est GFR (African American) 13.8; Est GFR (Non-African American) 11.9; Potassium 3.5 mmol/L (3.5-5.1)
[2019-07-12] MEDS: FLUTICASONE/SALMETEROL (ADVAIR) 500/50 INH 14 PUFF INH SCH ×2 (07:50→20:02)
[2019-07-12] MEDS: PANTOprazole 40 MG TAB PO SCH (07:51)
[2019-07-12] MEDS: FLUOXETINE HCL 20 MG CAP PO SCH (07:51)
[2019-07-12] MEDS: ASPIRIN 81 MG ECTAB PO SCH (07:51)
[2019-07-12] MEDS: ACYCLOVIR 400 MG TAB PO SCH (07:51)
[2019-07-12] MEDS: MAGNESIUM CHLORIDE 64MG DELAYED REL TAB PO SCH ×2 (07:51→20:04)
[2019-07-12] MEDS: FERROUS GLUCONATE 324 MG TAB PO SCH (07:52)
[2019-07-12] MEDS: ATORVASTATIN 40 MG TAB PO SCH (07:52)
[2019-07-12] MEDS: LACTOBACILLUS ACIDOPHILUS (FLORANEX) TAB PO SCH ×4 (07:52→20:02)
[2019-07-12] MEDS: GABAPENTIN 100 MG CAP PO SCH ×3 (07:52→20:03)
[2019-07-12] MEDS: METOPROLOL SUCC 25MG EXT REL TAB PO SCH (07:53)
[2019-07-12] MEDS: HEPARIN SODIUM/DEXTROSE 25,000 UNITS/500 ML BAG IV SCH (10:16)
[2019-07-12] MEDS ORDERED: Nursing to Pharmacy Communication ONE (16:32)
--- NOTE | 2019-07-12 17:11 | Hospitalist Progress Note ---
Date of Service July 12, 2019 Assessment & Plan (1) Hypotension: Hypotension likely due to GI loses R/O infectious source other than C diff Negative Orthostatics Blood cultures: 07/05 Coag Negative Staph--Likely contamination Repeat Blood Cx:Negative to date Urine culture growing multiple organisms Repeat Urine Cx:Yeast She received 2 L normal saline in the emergency room Blood pressure has been normal since admission Blood pressure medications is on hold Blood pressure remains at the lower level of normal (2) BARBRA (acute kidney injury): Secondary to ischemic ATN from hypotension and or Vanco toxicity Received intravenous vancomycin due to 1 out of 2 blood culture positive for coagulase-negative staph not lugdunensis She received 1 dose vancomycin IV 1750 mg 1900 on 07/03, then on 07/04 at 1100 1250 mg iv and 1 dose on 07/05 at 0500 same mg; stat 1800 vanco level 07/06 is 22 (36 hrs after last/3rd dose) Metabolic acidosis secondary to BARBRA Creatinine has been creeping up at 3.55 as of 07/11/2019 IV Lovenox and Vancomycin discontinued Renal USD:The kidneys demonstrate cortical atrophy and are without hydronephrosis. The bladder was decompressed and grossly unremarkable. Avoid Nephrotoxic agents as able Monitor renal function Appreciate nephrology input and recommendation 20 mEq KCl was given due to hypokalemia of 3.4 Creatinine level has been increasing but the patient starts more diuresis as of today We will monitor PRP (3) Elevated lactic acid level: Doubt any sepsis lactate levels normalized with IV fluids CXR: no acute findings Possible UTI on UA/Cx (4) Possible urinary tract infection: Possible UTI on UA. Urine culture growing multiple organisms. Received Zosyn Repeat urine culture: Yeast Antibiotics have been discontinued (5) Right leg DVT: Lovenox discontinued due to BARBRA Discussed with manager care/oncologist Dr. Maldonado for anticoagulation options on 07/05/19 Continue IV Heparin for now until renal function improves Like to start oral anticoagulation soon as kidney function has been improving Try to talk to the oncologist and will try again tomorrow (6) Weakness: Chronic weakness. Uses rolling walker to ambulate. PT/OT eval (7) Palpitations: H/O palpitations and sinus tachycardia Continue metoprolol (8) Hypomagnesemia: Due to GI loses Replete electrolytes as needed (9) C. difficile diarrhea: Reportedly diagnosed with C-diff at [facility] during recent admission 06/25/19 No history of C. difficile in the past as per patient Continue p.o. vancomycin May need slow vancomycin taper given immunocompromise state Diarrhea improved (10) Multiple myeloma: H/O Multiple myeloma. Follows with Dr Maldonado oncology [place] Stated last chemo was one month ago recommended to hold Revlimid due to acute infection Needs follow up with Oncology upon discharge (11) MOHAN (obstructive sleep apnea): (12) Nocturnal hypoxemia: Noncompliant with CPAP HS Continue oxygen 3L nasal cannula HS (13) Asthma: Stable As of exacerbation Continue home inhalers DVT Px: on IV heparin Code Status Full code Disposition Plan to discharge to rehab facility when medically stable Follows with Dr Javier Herrera [facility] for routine care Subjective 07/11/2019 The patient was seen and examined in telemetry unit She has been complaining of vague symptoms involving pain in multiple joints Denies any acute distress 07/12/2019 The patient was seen and examined in telemetry unit She feels a little bit better today and that she is out of bed on a chair Has generalized weakness but denies any other significant symptoms Review of Systems Review of Systems: All systems reviewed and are unremarkable except as noted below Constitutional: + body aches, + fatigue and + weakness Pain involving mult iple joints but no acute arthritis Physical Exam Physical Exam: Sitting on a chair without any symptoms Constitutional: well developed, well nourished and + obese; no acute distress (sitting up in chair on RA) Eyes: EOM intact bilaterally ENMT: Ears: no external ear abnormality Nose: no external nose abnormality Mouth: + dry oral mucous membranes Neck: no nuchal rigidity Respiratory: normal respiratory effort Auscultation: + diminished lung sounds Cardiovascular: Rate/Rhythm: regular rate and regular rhythm Extremities: + edema (2+ BLE and some hand swelling) Gastrointestinal (Abdomen): Inspection/Auscultation: normal bowel sounds Percussion/Palpation: abdomen soft; abdomen nontender Musculoskeletal: Extremities: strength 5/5 throughout Skin: no rashes, warm and dry Psychiatric: A+Ox3, euthymic affect Speech: normal rate/rhythm/volume of speech Lymphatic: no cervical or axillary lymphadenopathy Results & Data Vital Signs (Past 12 Hours) Vital Signs Temp Pulse Pulse Resp BP Pulse Ox 07/12/19 16:00 97 H 07/12/19 15:38 36.8 C 88 18 117/76 100 07/12/19 11:00 37.2 C 91 H 20 115/77 99 07/12/19 08:00 90 07/12/19 06:42 37.0 C 88 20 102/67 98 Laboratory Results Short CBC 07/12/19 Range/Units 05:31 WBC 3.82 L (4.8-10.8) K/uL Hgb 7.9 L (12.0-16.0) g/dL Hct 24.9 L (37-47) % Plt Count 165 (130-400) K/uL BMP 07/12/19 05:31 Sodium 142 Potassium 3.5 Chloride 100 Carbon Dioxide 37 H BUN 19 H Creatinine 3.67 H Glucose 74 Calcium 7.6 L Medications Administered Current Inpatient Medications Acetaminophen (Tylenol) 650 mg PO Q4H PRN PRN Reason: Pain or Fever Stop: 08/01/19 16:41 Last Admin: 07/11/19 15:43 Dose: 650 mg Documented by: Acyclovir (Zovirax) 400 mg PO DAILY [facility] Stop: 08/02/19 08:59 Last Admin: 07/12/19 07:51 Dose: 400 mg Documented by: Albuterol (Ventolin Hfa) 1 puffs INH Q6H PRN PRN Reason: Shortness Of Breath Or Wheezing Stop: 08/01/19 16:41 Aspirin (Ecotrin Ectab) 81 mg PO QAM [facility] Stop: 08/02/19 08:59 Last Admin: 07/12/19 07:51 Dose: 81 mg Documented by: Atorvastatin Calcium (Lipitor) 40 mg PO DAILY [facility] Stop: 08/02/19 08:59 Last Admin: 07/12/19 07:52 Dose: 40 mg Documented by: Ferrous Gluconate (Ferrous Gluconate) 324 mg PO DAILY [facility] Stop: 08/02/19 08:59 Last Admin: 07/12/19 07:52 Dose: 324 mg Documented by: Fluoxetine HCl (Prozac) 40 mg PO QAM [facility] Stop: 08/02/19 08:59 Last Admin: 07/12/19 07:51 Dose: 40 mg Documented by: Gabapentin (Neurontin) 100 mg PO TID [facility] Stop: 08/01/19 20:59 Last Admin: 07/12/19 13:55 Dose: 100 mg Documented by: Heparin Sodium/Dextrose (Heparin Sodium/Dextrose) 25,000 units in 500 mls @ 13 mls/hr IV .Q24H [facility]; Protocol Stop: 08/04/19 08:14 Last Admin: 07/12/19 10:16 Dose: 650 units/hr, 13 mls/hr Documented by: Lactobacillus Acidophilus (Floranex) 4 tab PO QIDM [facility] Stop: 08/05/19 20:59 Last Admin: 07/12/19 16:34 Dose: 4 tab Documented by: Magnesium Chloride (Slow-Mag) 64 mg PO BID [facility] Stop: 08/09/19 09:59 Last Admin: 07/12/19 07:51 Dose: 64 mg Documented by: Metoprolol Succinate (Toprol Xl) 12.5 mg PO QAM [facility] Stop: 08/02/19 08:59 Last Admin: 07/12/19 07:53 Dose: Not Given Documented by: Miconazole Nitrate (Desenex) 1 appln EXT PRN PRN PRN Reason: Affected Skin Folds Stop: 08/10/19 07:52 Mirtazapine (Remeron) 15 mg PO [facility] Stop: 08/01/19 20:59 Last Admin: 07/11/19 20:05 Dose: 15 mg Documented by: Montelukast Sodium (Singulair) 10 mg PO [facility] Stop: 08/01/19 20:59 Last Admin: 07/11/19 20:06 Dose: 10 mg Documented by: Nystatin (Mycostatin) 1 appln EXT BID PRN PRN Reason: Affected Skin Folds Stop: 08/01/19 17:19 Last Admin: 07/02/19 18:19 Dose: 1 appln Documented by: Ondansetron HCl (Zofran) 4 mg IV Q6H PRN PRN Reason: Nausea And Vomiting Stop: 08/01/19 16:41 Last Admin: 07/10/19 18:15 Dose: 4 mg Documented by: Pantoprazole Sodium (Protonix) 40 mg PO DAILY [facility]; Protocol Stop: 08/02/19 08:59 Last Admin: 07/12/19 07:51 Dose: 40 mg Documented by: Potassium Chloride (Klor-Con M20) 20 meq PO BID [facility] Stop: 08/01/19 20:59 Last Admin: 07/07/19 08:39 Dose: 20 meq Documented by: Raspberry (Raspberry) 5 ml PO Q6 [facility] Stop: 07/12/19 17:59 Last Admin: 07/12/19 11:17 Dose: 5 ml Documented by: Fluticasone/Salmeterol (Advair Diskus 500/50) 1 puffs INH BID [facility]; Protocol Stop: 08/01/19 20:59 Last Admin: 07/12/19 07:50 Dose: 1 puffs Documented by: Tramadol HCl (Ultram) 50 mg PO Q6H PRN PRN Reason: Pain Stop: 08/01/19 16:41 Last Admin: 07/12/19 11:16 Dose: 50 mg Documented by: Vancomycin HCl (Vancomycin Hcl) 125 mg PO Q6 [facility] Stop: 07/12/19 17:59 Last Admin: 07/12/19 11:17 Dose: 125 mg Documented by:
--- NOTE | 2019-07-12 19:39 | Nephrology Progress Note ---
Date of Service July 12, 2019 Assessment & Plan (1) BARBRA (acute kidney injury): nonoliguric ischemic atn versus atn from vanco toxicity versus also possible glomerular or other process relating to myeloma. baseline creatinine 0.9; at baseline on 07/02 presentation. then 07/05 up abruptly to 1.6, today further up to 3.7. not oliguric. concerning she is showing no consistent sign of plateau so far. Non glomerular myeloma related differential includes light chain cast nephropathy, uric acid nephropathy, interstitial nephritis. chemistries not consistent with tumor lysis. Unfortunately most myeloma related disease would need renal bx to diagnose; she is a poor candidate for that did have 1 dose vancomycin IV 1750 mg 1900 on 07/03, then on 07/04 at 1100 1250 mg iv and 1 dose on 07/05 at 0500 same mg; stat 1800 vanco level 07/06 is 22 (36 hrs after last/3rd dose) -daily bmp -cont nephrotoxin avoidance -bp a bit better this evening -urine sediment concerning >> some blood, 500 mg proteinuria on presentation; rechecked sediment and more protein, less creatinine to where they cannot c alculate prot/creat ratio>>ordered 24 hr urine for protein and creatinine; would not place hernandez for this however >cxr clear >> no diuretics indicated -ordered other glomerular disease serologies (2) Hypotension: -her C diff at outside facility Xmas was negative; however pt on po vanco per oncology OP recommendations -reluctant to stop current BB dose d/t a fib and would continue -would evaluate her for adrenal insufficiency but her hypoalbuminemia makes test results impossible to interpret reliably: she could have chronic tertiary adrenal insufficiency from repeated glucocorticoid exposure for CA care; consider empiric 3 mg daily prednisone and 0.1 mg daily fludrocortisone>>consider hematology query of how often adrenal insufficiency seen/treated in pts on CTX for MM -get reliable count of BM daily if possible - none reportedto day (3) Anemia of chronic disease: was 11.5 on presentation hgb; now 8 today; at least some dilutional (all 3 lines dropping but none as far as hgb) -not a candidate for epo unless hematology clears her d/t myeloma -transfuse prn -daily cbc Subjective had a reasonable day; some N at midday meal; tolerated supper; no sob; ongoing marked edema including BLUE. moveing bowels. voiding w/o issues Review of Systems Review of Systems: All systems reviewed & are unremarkable except as noted in HPI & below Physical Exam Constitutional: well developed and well nourished; no acute distress (lying HOB 30 degr on RA) Eyes: EOM intact bilaterally ENMT: Ears: no external ear abnormality Nose: no external nose abnormality Mouth: + dry oral mucous membranes Neck: no nuchal rigidity Respiratory: normal respiratory effort Auscultation: lungs clear to auscultation bilaterally and + diminished lung sounds Cardiovascular: Rate/Rhythm: regular rhythm and + tachycardic Extremities: + edema (2+ BLE and hand swelling) Gastrointestinal (Abdomen): Inspection/Auscultation: normal bowel sounds Percussion/Palpation: abdomen soft; abdomen nontender Musculoskeletal: Extremities: strength 5/5 throughout Skin: no rashes, warm and dry Neurologic: grant, no tremor, fluent speech Psychiatric: A+Ox3, euthymic affect Speech: normal rate/rhythm/volume of speech Genitourinary: no hernandez Results & Data Vital Signs (Past 12 Hours) Vital Signs Temp Pulse Pulse Resp BP Pulse Ox 07/12/19 16:00 97 H 07/12/19 15:38 36.8 C 88 18 117/76 100 07/12/19 11:00 37.2 C 91 H 20 115/77 99 07/12/19 08:00 90 Laboratory Results 07/12/19 05:31 07/12/19 05:31 Diagnostic Findings cxr > negative chest
[2019-07-12] MEDS: MIRTAZAPINE TAB 15 MG TAB PO SCH (20:03)
[2019-07-12] MEDS: MONTELUKAST SODIUM 10 MG TABLET PO SCH (20:03)
[2019-07-13] MEDS: TRAMADOL HCL 50 MG TABLET PO PRN ×4 (01:59→22:49)
[2019-07-13 04:22] LABS: Creatinine Urine Random 13.4 mg/dl; Uric Acid Urine Random 7.1 mg/dl
[2019-07-13] MEDS: LACTOBACILLUS ACIDOPHILUS (FLORANEX) TAB PO SCH ×4 (07:47→20:36)
[2019-07-13 08:27] LABS: Partial Thromboplastin Ratio 2.4
[2019-07-13 08:35] LABS: Partial Thromboplastin Time 64.3 Seconds (21.0-31.0)
[2019-07-13 08:38] LABS: BUN Creatinine Ratio 5.7 (10-20); Calcium 7.9 mg/dl (8.5-10.1); Creatinine Clr Calc Pharmacy 14.1 ml/min; Est GFR (African American) 13.6; Est GFR (Non-African American) 11.7; Magnesium 1.6 mg/dl (1.8-2.4); Potassium 3.2 mmol/L (3.5-5.1)
[2019-07-13 08:43] LABS: Phosphorus 5.4 mg/dl (2.5-4.9); Uric Acid 4.9 mg/dl (2.6-7.2)
[2019-07-13] MEDS: FLUTICASONE/SALMETEROL (ADVAIR) 500/50 INH 14 PUFF INH SCH ×2 (09:08→20:36)
[2019-07-13] MEDS: ATORVASTATIN 40 MG TAB PO SCH (09:09)
[2019-07-13] MEDS: FLUOXETINE HCL 20 MG CAP PO SCH (09:09)
[2019-07-13] MEDS: FERROUS GLUCONATE 324 MG TAB PO SCH (09:09)
[2019-07-13] MEDS: GABAPENTIN 100 MG CAP PO SCH ×3 (09:09→20:35)
[2019-07-13] MEDS: METOPROLOL SUCC 25MG EXT REL TAB PO SCH ×2 (09:10→09:16)
[2019-07-13] MEDS: ASPIRIN 81 MG ECTAB PO SCH (09:11)
[2019-07-13] MEDS: MAGNESIUM CHLORIDE 64MG DELAYED REL TAB PO SCH ×2 (09:11→20:35)
[2019-07-13] MEDS: ACYCLOVIR 400 MG TAB PO SCH (09:11)
[2019-07-13] MEDS: PANTOprazole 40 MG TAB PO SCH (09:11)
[2019-07-13] MEDS: POTASSIUM CHLORIDE 20 MEQ TABCR PO SCH ×4 (11:45→16:51)
[2019-07-13] MEDS: ACETAMINOPHEN 325 MG TAB PO PRN (11:48)
--- NOTE | 2019-07-13 12:37 | CT Scan Report ---
CT abd pelvis wo con CT DOSE: 920.91 mGy.cm HISTORY: Pain. Abnormal uterus. R/O Diverticulitis,Uterine pathology with LQ pain TECHNIQUE: Multiaxial CT images of the abdomen and pelvis were performed without contrast. A dose lo wering technique was utilized adhering to the principles of ALARA. COMPARISON STUDY: None. FINDINGS: Mild pleural reactive change right lung base. Lung bases are otherwise clear. Liver spleen and pancreas are unremarkable within the limitations of an unenhanced scan. The gallblad geeta is not well seen and potentially has been removed. Kidneys are considered negative for hydronephrosis. There are findings of moderate body wall anasarca. There is a Tejada catheter within a collapsed bladder. There is no significant abdominal pelvic or ing uinal adenopathy. Bladder shows moderate atrophic change unremarkable for age. The left iliopsoas muscle is enlarged compared to the right. Several small necrotic foci are identifi ed best seen on transaxial image 47. The possibility of pathologic enlargement of the left iliopsoas is considered. There is a trace amount of infiltrative change of the fascial planes anterior to the left iliopsoas m uscle. Bony structures show evidence for multiple lytic changes throughout the axial and upper pedicular ske leton. This is consistent with that of lytic metastatic disease and/or myelomatous type change. There is no evidence for compression deformity of the low thoracic or lumbar spine. IMPRESSION: 1. Diffuse lytic changes throughout the axial and appendicular skeleton.. 2. Abnormal enlargement of the left iliopsoas as compared to the right suggesting pathologic intramus cular enlargement. 3. Body wall anasarca. 2. This is consistent with that of metastatic generated change versus myelomatous type change. 3. No acute intra-abdominal or intrapelvic pathology. This is within limitations of an unenhanced sca n. 4. Body wall anasarca. ACT 112: Negative or not required by law. The above report was generated using voice recognition software. It may contain grammatical, syntax or spelling errors. Electronically signed by: Florentino Breaux M.D. 07/13/2019 12:35 PM
--- NOTE | 2019-07-13 16:07 | Hospitalist Progress Note ---
Date of Service July 13, 2019 Assessment & Plan (1) Intramuscular hematoma: Has been complaining of left lower quadrant pain since this morning Examination revealed localized tenderness CT of the abdomen pelvis without contrast showed left ileo-psoas hematoma Will stop heparin and if the pain worsens will reverse heparin with protamine Monitor H&H We will discuss with oncologist for further anticoagulation (2) Hypotension: Hypotension likely due to GI loses R/O infectious source other than C diff Negative [facility]ost[facility] Blood cultures: 07/05 Coag Negative Staph--Likely contamination Repeat Blood Cx:Negative to date Urine culture growing multiple organisms Repeat Urine Cx:Yeast She received 2 L normal saline in the emergency room Blood pressure has been normal since admission Blood pressure medications is on hold Blood pressure remains at the lower level of normal (3) BARBRA (acute kidney injury): Secondary to ischemic ATN from hypotension and or Vanco toxicity Progressive renal impairment could be secondary to multiple myeloma Received intravenous vancomycin due to 1 out of 2 blood culture positive for coagulase-negative staph not lugdunensis She received 1 dose vancomycin IV 1750 mg 1900 on 07/03, then on 07/04 at 1100 1250 mg iv and 1 dose on 07/05 at 0500 same mg; stat 1800 vanco level 07/06 is 22 (36 hrs after last/3rd dose) Metabolic acidosis secondary to BARBRA Creatinine has been creeping up at 3.55 as of 07/11/2019 IV Lovenox and Vancomycin discontinued Renal USD:The kidneys demonstrate cortical atrophy and are without hydronephrosis. The bladder was decompressed and grossly unremarkable. Avoid Nephrotoxic agents as able Monitor renal function Appreciate nephrology input and recommendation 20 mEq KCl was given due to hypokalemia of 3.4 Creatinine level has been increasing but the patient starts more diuresis as of today Kidney function has not been improving (4) Elevated lactic acid level: Doubt any sepsis lactate levels normalized with IV fluids CXR: no acute findings Possible UTI on UA/Cx (5) Possible urinary tract infection: Possible UTI on UA. Urine culture growing multiple organisms. Received Zosyn Repeat urine culture: Yeast Antibiotics have been discontinued (6) Right leg DVT: Lovenox discontinued due to BARBRA Discussed with oil well services superintendent/oncologist Dr. Maldonado for anticoagulation options on 07/05/19 Continue IV Heparin for now until renal function improves Like to start oral anticoagulation soon as kidney function has been improving Try to talk to the oncologist and will try again tomorrow Heparin has been stopped due to left ileo-psoas hematoma We will discuss with oncologist for further administration of anticoagulants (7) Weakness: Chronic weakness. Uses rolling walker to ambulate. PT/OT eval (8) Palpitations: H/O palpitations and sinus tachycardia Continue metoprolol (9) Hypomagnesemia: Due to GI loses Replete electrolytes as needed (10) C. difficile diarrhea: Reportedly diagnosed with C-diff at [facility] during recent admission 06/25/19 No history of C. difficile in the past as per patient Continue p.o. vancomycin May need slow vancomycin taper given immunocompromise state Diarrhea improved (11) Multiple myeloma: H/O Multiple myeloma. Follows with Dr Maldonado oncology [place] Stated last chemo was one month ago recommended to hold Revlimid due to acute infection Needs follow up with Oncology upon discharge (12) MOHAN (obstructive sleep apnea): (13) Nocturnal hypoxemia: Noncompliant with CPAP HS Continue oxygen 3L nasal cannula HS (14) Asthma: Stable As of exacerbation Continue home inhalers DVT Px: on IV heparin Code Status Full code Disposition Plan to discharge to rehab facility when medically stable Follows with Dr Javier Herrera [facility] for routine care Subjective 07/11/2019 The patient was seen and examined in telemetry unit She has been complaining of vague symptoms involving pain in multiple joints Denies any acute distress 07/12/2019 The patient was seen and examined in telemetry unit She feels a little bit better today and that she is out of bed on a chair Has generalized weakness but denies any other significant symptoms 07/13/2019 The patient was seen and examined in telemetry unit She has been complaining of left lower quadrant pain since this morning She did not participate any PT for today Denies any shortness of breath and/or chest pain Review of Systems Review of Systems: All systems reviewed and are unremarkable except as noted below Constitutional: + body aches, + fatigue and + weakness Pain involving multiple joints but no acute arthritis Physical Exam Physical Exam: Lying in bed with discomfort secondary to pain in the left lower quadrant Constitutional: well developed, well nourished and + obese; no acute distress (sitting up in chair on RA) Eyes: EOM intact bilaterally ENMT: Ears: no external ear abnormality Nose: no external nose abnormality Mouth: + dry oral mucous membranes Neck: no nuchal rigidity Respiratory: normal respiratory effort Auscultation: + diminished lung sounds Cardiovascular: Rate/Rhythm: regular rate and regular rhythm Extremities: + edema (2+ BLE and some hand swelling) Gastrointestinal (Abdomen): Inspection/Auscultation: normal bowel sounds Percussion/Palpation: abdomen soft; abdomen nontender Tenderness left lower quadrant with minimal guarding. No tenderness in left renal angle Musculoskeletal: Extremities: strength 5/5 throughout Skin: no rashes, warm and dry Psychiatric: A+Ox3, euthymic affect Speech: normal rate/rhythm/volume of speech Lymphatic: no cervical or axillary lymphadenopathy Results & Data Vital Signs (Past 12 Hours) Vital Signs Temp Pulse Resp BP BP Pulse Ox 07/13/19 15:03 37.1 C 106 H 20 105/65 93 07/13/19 11:45 37.7 C H 101 H 20 115/72 90 07/13/19 09:17 99 H 108/65 07/13/19 07:42 37.1 C 100 H 18 137/73 95 07/13/19 04:19 36.8 C 96 H 20 112/69 99 Laboratory Results [facility] 07/13/19 07:55 Sodium 139 Potassium 3.2 L Chloride 99 Carbon Dioxide 35 H BUN 21 H Creatinine 3.72 H Glucose 84 Calcium 7.9 L Medications Administered Current Inpatient Medications Acetaminophen (Tylenol) 650 mg PO Q4H PRN PRN Reason: Pain or Fever Stop: 08/01/19 16:41 Last Admin: 07/13/19 11:48 Dose: 650 mg Documented by: Acyclovir (Zovirax) 400 mg PO DAILY [facility] Stop: 08/02/19 08:59 Last Admin: 07/13/19 09:11 Dose: 400 mg Documented by: Albuterol (Ventolin Hfa) 1 puffs INH Q6H PRN PRN Reason: Shortness Of Breath Or Wheezing Stop: 08/01/19 16:41 Aspirin (Ecotrin Ectab) 81 mg PO QAM [facility] Stop: 08/02/19 08:59 Last Admin: 07/13/19 09:11 Dose: 81 mg Documented by: Atorvastatin Calcium (Lipitor) 40 mg PO DAILY [facility] Stop: 08/02/19 08:59 Last Admin: 07/13/19 09:09 Dose: 40 mg Documented by: Ferrous Gluconate (Ferrous Gluconate) 324 mg PO DAILY [facility] Stop: 08/02/19 08:59 Last Admin: 07/13/19 09:09 Dose: 324 mg Documented by: Fluoxetine HCl (Prozac) 40 mg PO QAM [facility] Stop: 08/02/19 08:59 Last Admin: 07/13/19 09:09 Dose: 40 mg Documented by: Gabapentin (Neurontin) 100 mg PO TID [facility] Stop: 08/01/19 20:59 Last Admin: 07/13/19 14:58 Dose: 100 mg Documented by: Lactobacillus Acidophilus (Floranex) 4 tab PO QIDM [facility] Stop: 08/05/19 20:59 Last Admin: 07/13/19 11:45 Dose: 4 tab Documented by: Magnesium Chloride (Slow-Mag) 64 mg PO BID [facility] Stop: 08/09/19 09:59 Last Admin: 07/13/19 09:11 Dose: 64 mg Documented by: Metoprolol Succinate (Toprol Xl) 12.5 mg PO [facility] Stop: 08/02/19 08:59 Last Admin: 07/13/19 09:16 Dose: Not Given Documented by: Miconazole Nitrate (Desenex) 1 appln EXT PRN PRN PRN Reason: Affected Skin Folds Stop: 08/10/19 07:52 Mirtazapine (Remeron) 15 mg PO [facility] Stop: 08/01/19 20:59 Last Admin: 07/12/19 20:03 Dose: 15 mg Documented by: Montelukast Sodium (Singulair) 10 mg PO [facility] Stop: 08/01/19 20:59 Last Admin: 07/12/19 20:03 Dose: 10 mg Documented by: Nystatin (Mycostatin) 1 appln EXT BID PRN PRN Reason: Affected Skin Folds Stop: 08/01/19 17:19 Last Admin: 07/02/19 18:19 Dose: 1 appln Documented by: Ondansetron HCl (Zofran) 4 mg IV Q6H PRN PRN Reason: Nausea And Vomiting Stop: 08/01/19 16:41 Last Admin: 07/10/19 18:15 Dose: 4 mg Documented by: Pantoprazole Sodium (Protonix) 40 mg PO DAILY [facility]; Protocol Stop: 08/02/19 08:59 Last Admin: 01/10/20 09:11 Dose: 40 mg Documented by: Potassium Chloride (Klor-Con M20) 20 meq PO BID [facility] Stop: 08/01/19 20:59 Last Admin: 07/07/19 08:39 Dose: 20 meq Documented by: Potassium Chloride (Klor-Con M20) 20 meq PO Q2H [facility] Stop: 07/13/19 16:31 Last Admin: 07/13/19 14:58 Dose: 20 meq Documented by: Fluticasone/Salmeterol (Advair Diskus 500/50) 1 puffs INH BID [facility]; Protocol Stop: 08/01/19 20:59 Last Admin: 07/13/19 09:08 Dose: 1 puffs Documented by: Tramadol HCl (Ultram) 50 mg PO Q6H PRN PRN Reason: Pain Stop: 08/01/19 16:41 Last Admin: 07/13/19 15:00 Dose: 50 mg Documented by:
--- NOTE | 2019-07-13 18:50 | Nephrology Progress Note ---
Date of Service July 13, 2019 Assessment & Plan (1) BARBRA (acute kidney injury): nonoliguric ischemic atn versus atn from vanco toxicity versus also possible glomerular or other process relating to myeloma. baseline creatinine 0.9; at baseline on 07/02 presentation. then 07/05 up abruptly to 1.6, today plateau'd at 3.7. not oliguric. she may well start to trend down soon now that she has plateau'd. Non glomerular myeloma related differential includes light chain cast nephropathy, uric acid nephropathy, interstitial nephritis. chemistries not consistent with tumor lysis. Unfortunately most myeloma related disease would need renal bx to diagnose; she is a poor candidate for that did have 1 dose vancomycin IV 1750 mg 1900 on 07/03, then on 07/04 at 1100 1250 mg iv and 1 dose on 07/05 at 0500 same mg; stat 1800 vanco level 07/06 is 22 (36 hrs after last/3rd dose) -daily bmp -cont nephrotoxin avoidance -urine sediment concerning >> some blood, 500 mg proteinuria on presentation; rechecked sediment and more protein, less creatinine to where they cannot calculate prot/creat ratio>>ordered 24 hr urine for protein and creatinine; this will be completed tonight -remove hernandez after 24 hr urine done >cxr clear >> no diuretics indicated -ordered other glomerular disease serologies-pending (2) Hypotension: -her C diff at outside facility [facility] was negative; however pt on po vanco per oncology OP recommendations -reluctant to stop current BB dose d/t a fib and would continue -would evaluate her for adrenal insufficiency but her hypoalbuminemia makes test results impossible to interpret reliably: she could have chronic tertiary adrenal insufficiency from repeated glucocorticoid exposure for CA care; consider empiric 3 mg daily prednisone and 0.1 mg daily fludrocortisone>>consider hematology query of how often adrenal insufficiency se en/treated in pts on CTX for MM -get reliable count of BM daily if possible - 1 today (3) Anemia of chronic disease: was 11.5 on presentation hgb; now 8 yesterday; at least some dilutional (all 3 lines dropping but none as far as hgb) -not a candidate for epo unless hematology clears her d/t myeloma -transfuse prn -daily cbc Subjective c/o L hip pain to me -- had told nursing more L flank; no sob; worried about her renal function Review of Systems Review of Systems: All systems reviewed & are unremarkable except as noted in HPI & below Physical Exam Constitutional: well developed and well nourished; no acute distress (on RA in bed) Eyes: EOM intact bilaterally ENMT: Ears: no external ear abnormality Nose: no external nose abnormality Mouth: + dry oral mucous membranes Neck: no nuchal rigidity Respiratory: normal respiratory effort Auscultation: lungs clear to auscultation bilaterally and + diminished lung sounds Cardiovascular: Rate/Rhythm: regular rhythm and + tachycardic Extremities: + edema (1+ BLE and hand swelling) Gastrointestinal (Abdomen): Inspection/Auscultation: normal bowel sounds Percussion/Palpation: abdomen soft; abdomen nontender Musculoskeletal: Extremities: strength 5/5 throughout Skin: no rashes, warm and dry Neurologic: grant, fluent speech, variable tremor Psychiatric: A+Ox3, euthymic affect Speech: normal rate/rhythm/volume of speech Results & Data Vital Signs (Past 12 Hours) Vital Signs Temp Pulse Resp BP BP Pulse Ox 07/13/19 18:32 37.6 C H 106 H 18 95/60 L 91 07/13/19 15:03 37.1 C 106 H 20 105/65 93 07/13/19 11:45 37.7 C H 101 H 20 115/72 90 07/13/19 09:17 99 H 108/65 07/13/19 07:42 37.1 C 100 H 18 137/73 95 Laboratory Results 07/12/19 05:31 07/13/19 07:55
[2019-07-13] MEDS: MONTELUKAST SODIUM 10 MG TABLET PO SCH (20:35)
[2019-07-13] MEDS: MIRTAZAPINE TAB 15 MG TAB PO SCH (20:36)
[2019-07-14 06:45] LABS: Basophils # (auto) 0.01 K/uL (0-0.2); Basophils % (auto) 0.2 %; Eosinophils # (auto) 0.03 K/uL (0-0.5); Eosinophils % (auto) 0.5 %; Hematocrit (blood only) 22.6 % (37-47); Hemoglobin 7.4 g/dL (12.0-16.0); Immature Granulocytes # (auto) 0.02 K/uL (0.00-0.02); Immature Granulocytes % (auto) 0.3 %; Lymphocytes # (auto) 0.85 K/uL (1.2-3.4); Lymphocytes % (auto) 13.3 %; Mean Corpuscular Hemoglobin 29.2 pg (25-34); Mean Corpuscular Hgb Conc 32.7 g/dL (32-36); Mean Corpuscular Volume 89.3 fL (80-100); Mean Platelet Volume 10.2 fL (7.4-10.4); Monocytes # (auto) 0.69 K/uL (0.11-0.59); Monocytes % (auto) 10.8 %; Neutrophils # (auto) 4.81 K/uL (1.4-6.5); Neutrophils % (auto) 74.9 %; Platelet Count 174 K/uL (130-400); RDW Coefficient of Variation 16.4 % (11.5-14.5); RDW Standard Deviation 54.2 fL (36.4-46.3); Red Blood Count 2.53 M/uL (4.2-5.4); White Blood Count 6.41 K/uL (4.8-10.8)
[2019-07-14 07:07] LABS: Urine Creatinine < 13.0 mg/dl; Urine Total Protein 35.2 mg/dl
[2019-07-14 07:18] LABS: Total Protein 24 Hour Urine 1302.4 mg/24 Hr (0-149.1); Total Volume Urine 3700 mL
[2019-07-14 07:24] LABS: Poikilocytosis Present
[2019-07-14 07:27] LABS: BUN Creatinine Ratio 6.7 (10-20); Creatinine Clr Calc Pharmacy 14.7 ml/min; Est GFR (African American) 14.7; Est GFR (Non-African American) 12.7; Magnesium 1.4 mg/dl (1.8-2.4); Potassium 3.8 mmol/L (3.5-5.1)
[2019-07-14] MEDS: TRAMADOL HCL 50 MG TABLET PO PRN ×2 (09:36→23:22)
[2019-07-14] MEDS: ATORVASTATIN 40 MG TAB PO SCH (09:37)
[2019-07-14] MEDS: FERROUS GLUCONATE 324 MG TAB PO SCH (09:38)
[2019-07-14] MEDS: PANTOprazole 40 MG TAB PO SCH (09:38)
[2019-07-14] MEDS: ACYCLOVIR 400 MG TAB PO SCH (09:38)
[2019-07-14] MEDS: LACTOBACILLUS ACIDOPHILUS (FLORANEX) TAB PO SCH ×4 (09:38→21:11)
[2019-07-14] MEDS: FLUOXETINE HCL 20 MG CAP PO SCH (09:38)
[2019-07-14] MEDS: GABAPENTIN 100 MG CAP PO SCH ×3 (09:38→21:11)
[2019-07-14] MEDS: FLUTICASONE/SALMETEROL (ADVAIR) 500/50 INH 14 PUFF INH SCH ×2 (09:39→21:09)
[2019-07-14] MEDS: MAGNESIUM CHLORIDE 64MG DELAYED REL TAB PO SCH ×2 (09:39→21:10)
[2019-07-14] MEDS: ASPIRIN 81 MG ECTAB PO SCH ×2 (09:40→11:16)
[2019-07-14] MEDS: METOPROLOL SUCC 25MG EXT REL TAB PO SCH (09:40)
--- NOTE | 2019-07-14 13:02 | Hospitalist Progress Note ---
Date of Service July 14, 2019 Assessment & Plan (1) Intramuscular hematoma: Has been complaining of left lower quadrant pain since this morning Examination revealed localized tenderness CT of the abdomen pelvis without contrast showed left ileo-psoas hematoma Will stop heparin and if the pain worsens will reverse heparin with protamine Discussed with on-call covering oncologist in [place]: No plan to restart any anticoagulation as of yet with recent development of hematoma. Plan to do repeat ultrasound of the upper extremity on Tuesday and further decision following the results of the test. Hemoglobin dropped to 7.4 from 7.9 on 07/13/2019 We will monitor H&H (2) Hypotension: Hypotension likely due to GI loses R/O infectious source other than C diff Negative Orthostatics Blood cultures: 07/05 Coag Negative Staph--Likely contamination Repeat Blood Cx:Negative to date Urine culture growing multiple organisms Repeat Urine Cx:Yeast She received 2 L normal saline in the emergency room Blood pressure has been normal since admission Blood pressure medications is on hold Blood pressure remains at the lower level of normal (3) BARBRA (acute kidney injury): Secondary to ischemic ATN from hypotension and or Vanco toxicity Progressive renal impairment could be secondary to multiple myeloma Received intravenous vancomycin due to 1 out of 2 blood culture positive for coagulase-negative staph not lugdunensis She received 1 dose vancomycin IV 1750 mg 1900 on 07/03, then on 07/04 at 1100 1250 mg iv and 1 dose on 07/05 at 0500 same mg; stat 1800 vanco level 07/06 is 22 (36 hrs after last/3rd dose) Metabolic acidosis secondary to BARBRA Creatinine has been creeping up at 3.55 as of 07/11/2019 IV Lovenox and Vancomycin discontinued Renal USD:The kidneys demonstrate cortical atrophy and are without hydronephrosis. The bladder was decompressed and grossly unremarkable. Avoid Nephrotoxic agents as able Monitor renal function Appreciate nephrology input and recommendation 20 mEq KCl was given due to hypokalemia of 3.4 Creatinine level has been increasing but the patient starts more diuresis as of today Kidney function has not been improving yet (4) Elevated lactic acid level: Doubt any sepsis lactate levels normalized with IV fluids CXR: no acute findings Possible UTI on UA/Cx (5) Possible urinary tract infection: Possible UTI on UA. Urine culture growing multiple organisms. Received Zosyn Repeat urine culture: Yeast Antibiotics have been discontinued (6) Right leg DVT: Lovenox discontinued due to BARBRA Discussed with electrical maintenance supervisor/oncologist Dr. Maldonado for anticoagulation options on 07/05/19 Continue IV Heparin for now until renal function improves Like to start oral anticoagulation soon as kidney function has been improving Try to talk to the oncologist and will try again tomorrow Heparin has been stopped due to left ileo-psoas hematoma Will get repeat scan on Tuesday (7) Weakness: Chronic weakness. Uses rolling walker to ambulate. PT/OT eval (8) Palpitations: H/O palpitations and sinus tachycardia Continue metoprolol (9) Hypomagnesemia: Due to GI loses Replete electrolytes as needed (10) C. difficile diarrhea: Reportedly diagnosed with C-diff at [facility] during recent admission 06/25/19 No history of C. difficile in the past as per patient Continue p.o. vancomycin May need slow vancomycin taper given immunocompromise state Diarrhea improved (11) Multiple myeloma: H/O Multiple myeloma. Follows with Dr Maldonado oncology [place] Stated last chemo was one month ago recommended to hold Revlimid due to acute infection Needs follow up with Oncology upon discharge Likely has flareup of multiple myeloma (12) MOHAN (obstructive sleep apnea): (13) Nocturnal hypoxemia: Noncompliant with CPAP HS Continue oxygen 3L nasal cannula HS (14) Asthma: Stable As of exacerbation Continue home inhalers DVT Px: on IV heparin Code Status Full code Disposition Plan to discharge to rehab facility when medically stable Follows with Dr Herrera - [facility] for routine care Subjective 07/11/2019 The patient was seen and examined in telemetry unit She has been complaining of vague symptoms involving pain in multiple joints Denies any acute distress 07/12/2019 The patient was seen and examined in telemetry unit She feels a little bit better today and that she is out of bed on a chair Has generalized weakness but denies any other significant symptoms 07/13/2019 The patient was seen and examined in telemetry unit She has been complaining of left lower quadrant pain since this morning She did not participate any PT for today Denies any shortness of breath and/or chest pain 07/14/2019 Patient is seen and examined in telemetry unit Her pain in the left lower quadrant is better Remains generally weak and lethargic Denies any shortness of breath and/or palpitation Review of Systems Review of Systems: All systems reviewed and are unremarkable except as noted below Constitutional: + body aches, + fatigue and + weakness Pain involving multiple joints but no acute arthritis Musculoskeletal: Pain in the left lower quadrant and left flank area Physical Exam Physical Exam: Lying in bed comfortably Constitutional: well developed, well nourished and + obese; no acute distress (sitting up in chair on RA) Eyes: EOM intact bilaterally ENMT: Ears: no external ear abnormality Nose: no external nose abnormality Mouth: + dry oral mucous membranes Neck: no nuchal rigidity Respiratory: normal respiratory effort Auscultation: + diminished lung sounds Cardiovascular: Rate/Rhythm: regular rate and regular rhythm Extremities: + edema (2+ BLE and some hand swelling) Gastrointestinal (Abdomen): Inspection/Auscultation: normal bowel sounds Percussion/Palpation: + abdomen tender (Left lower quadrant and left flank lower down on deep palpation) and abdomen soft Musculoskeletal: Extremities: no muscle atrophy Skin: no rashes, warm and dry Neurologic: moves all extremities Psychiatric: A+Ox3, euthymic affect Speech: normal rate/rhythm/volume of speech Lymphatic: no cervical or axillary lymphadenopathy Results & Data Vital Signs (Past 12 Hours) Vital Signs Temp Pulse Pulse Resp BP BP Pulse Ox 07/14/19 10:55 37.5 C 98 H 19 120/81 93 07/14/19 08:12 37.7 C H 137 H 18 124/77 92 07/14/19 04:07 36.4 C L 65 22 82/46 L 98 07/14/19 03:17 37.4 C 102 H 20 135/86 91 Laboratory Results Short CBC 07/14/19 Range/Units 05:55 WBC 6.41 (4.8-10.8) K/uL Hgb 7.4 L (12.0-16.0) g/dL Hct 22.6 L (37-47) % Plt Count 174 (130-400) K/uL BMP 07/14/19 05:55 Sodium 140 Potassium 3.8 D Chloride 103 Carbon Dioxide 31 BUN 23 H Creatinine 3.48 H Glucose 73 Calcium 8.0 L Medications Administered Current Inpatient Medications Acetaminophen (Tylenol) 650 mg PO Q4H PRN PRN Reason: Pain or Fever Stop: 08/01/19 16:41 Last Admin: 07/13/19 11:48 Dose: 650 mg Documented by: Acyclovir (Zovirax) 400 mg PO DAILY [facility] Stop: 08/02/19 08:59 Last Admin: 07/14/19 09:38 Dose: 400 mg Documented by: Albuterol (Ventolin Hfa) 1 puffs INH Q6H PRN PRN Reason: Shortness Of Breath Or Wheezing Stop: 08/01/19 16:41 Atorvastatin Calcium (Lipitor) 40 mg PO DAILY [facility] Stop: 08/02/19 08:59 Last Admin: 07/14/19 09:37 Dose: 40 mg Documented by: Ferrous Gluconate (Ferrous Gluconate) 324 mg PO DAILY [facility] Stop: 08/02/19 08:59 Last Admin: 07/14/19 09:38 Dose: 324 mg Documented by: Fluoxetine HCl (Prozac) 40 mg PO QAM [facility] Stop: 08/02/19 08:59 Last Admin: 07/14/19 09:38 Dose: 40 mg Documented by: Gabapentin (Neurontin) 100 mg PO TID [facility] Stop: 08/01/19 20:59 Last Admin: 07/14/19 09:38 Dose: 100 mg Documented by: Lactobacillus Acidophilus (Floranex) 4 tab PO QIDM [facility] Stop: 08/05/19 20:59 Last Admin: 07/14/19 11:33 Dose: 4 tab Documented by: Magnesium Chloride (Slow-Mag) 64 mg PO BID [facility] Stop: 08/09/19 09:59 Last Admin: 07/14/19 09:39 Dose: 64 mg Documented by: Metoprolol Succinate (Toprol Xl) 12.5 mg PO QAM [facility] Stop: 08/02/19 08:59 Last Admin: 07/14/19 09:40 Dose: 12.5 mg Documented by: Miconazole Nitrate (Desenex) 1 appln EXT PRN PRN PRN Reason: Affected Skin Folds Stop: 08/10/19 07:52 Mirtazapine (Remeron) 15 mg PO HS [facility] Stop: 08/01/19 20:59 Last Admin: 07/13/19 20:36 Dose: 15 mg Documented by: Montelukast Sodium (Singulair) 10 mg PO HS [facility] Stop: 08/01/19 20:59 Last Admin: 07/13/19 20:35 Dose: 10 mg Documented by: Nystatin (Mycostatin) 1 appln EXT BID PRN PRN Reason: Affected Skin Folds Stop: 08/01/19 17:19 Last Admin: 07/02/19 18:19 Dose: 1 appln Documented by: Ondansetron HCl (Zofran) 4 mg IV Q6H PRN PRN Reason: Nausea And Vomiting Stop: 08/01/19 16:41 Last Admin: 07/10/19 18:15 Dose: 4 mg Documented by: Pantoprazole Sodium (Protonix) 40 mg PO DAILY [facility]; Protocol Stop: 08/02/19 08:59 Last Admin: 07/14/19 09:38 Dose: 40 mg Documented by: Potassium Chloride (Klor-Con M20) 20 meq PO BID ОЛЕГ Stop: 08/01/19 20:59 Last Admin: 07/07/19 08:39 Dose: 20 meq Documented by: Fluticasone/Salmeterol (Advair Diskus 500/50) 1 puffs INH BID ОЛЕГ; Protocol Stop: 08/01/19 20:59 Last Admin: 07/14/19 09:39 Dose: 1 puffs Documented by: Tramadol HCl (Ultram) 50 mg PO Q6H PRN PRN Reason: Pain Stop: 08/01/19 16:41 Last Admin: 07/14/19 09:36 Dose: 50 mg Documented by:
--- NOTE | 2019-07-14 15:08 | Nephrology Progress Note ---
Date of Service July 14, 2019 Assessment & Plan (1) BARBRA (acute kidney injury): nonoliguric ischemic atn versus atn from vanco toxicity versus also possible glomerular or other process relating to myeloma. baseline creatinine 0.9; at baseline on 07/02 presentation. Cr 3.4 from 3.7 yesterday. not oliguric. she may well start to trend down soon now that she has plateau'd. Non glomerular myeloma related differential includes light chain cast nephropathy, uric acid nephropathy, interstitial nephritis. chemistries not consistent with tumor lysis. Unfortunately most myeloma related disease would need renal bx to diagnose; she is a poor candidate for that did have 1 dose vancomycin IV 1750 mg 1900 on 07/03, then on 07/04 at 1100 1250 mg iv and 1 dose on 07/05 at 0500 same mg; stat 1800 vanco level 07/06 is 22 (36 hrs after last/3rd dose) -daily bmp -cont nephrotoxin avoidance -urine sediment concerning >> some blood, 500 mg proteinuria on presentation; rechecked sediment and more protein, less creatinine to where they cannot calculate prot/creat ratio>>ordered 24 hr urine for protein and creatinine; this will be completed tonight -remove hernandez after 24 hr urine done >cxr clear >> no diuretics indicated -glomerular disease serologies-pending (2) Hypotension: -BP is better now -her C diff at outside facility [facility] was negative; however pt on po vanco per oncology OP recommendations -reluctant to stop current BB dose d/t a fib and would continue (3) Anemia of chronic disease: was 11.5 on presentation hgb; now 7.4 today; at least some dilutional (all 3 lines dropping but none as far as hgb) -not a candidate for epo unless hematology clears her d/t myeloma -transfuse prn -daily cbc Subjective Feels better. No SOB. She has leg swelling. No vomiting. has hernandez. Cr down trending Review of Systems Review of Systems: All systems reviewed & are unremarkable except as noted in HPI & below Physical Exam Physical Exam: General exam: Appears comfortable, no acute distress HEENT: Pupils are equal and reactive to light Neck: No JVD, neck is supple trachea is midline Respiratory system: Clear breath sounds bilaterally. Gastrointestinal: Abdomen is soft, non distended, non tender, bowel sounds are p resent CVS: Regular rate and rhythm. No murmurs, rubs or gallops Musculoskeletal: No joint or muscle tenderness Extremities: Non tender, 2+ edema, peripheral pulses are present Neuro: Oriented, no tremors, no focal neurological deficits Skin: No rashes Results & Data Vital Signs (Past 12 Hours) Vital Signs Temp Pulse Pulse Resp BP BP Pulse Ox 07/14/19 10:55 37.5 C 98 H 19 120/81 93 07/14/19 08:12 37.7 C H 137 H 18 124/77 92 07/14/19 04:07 36.4 C L 65 22 82/46 L 98 07/14/19 03:17 37.4 C 102 H 20 135/86 91 Laboratory Results Laboratory Results - last 24 hr 07/14/19 07/14/19 07/14/19 04:00 05:55 05:55 WBC 6.41 RBC 2.53 L Hgb 7.4 L Hct 22.6 L MCV 89.3 MCH 29.2 MCHC 32.7 RDW Std Deviation 54.2 H RDW Coeff of Alejandro 16.4 H Plt Count 174 MPV 10.2 Immature Gran % (Auto) 0.3 Neut % (Auto) 74.9 Lymph % (Auto) 13.3 Pitkin % (Auto) 10.8 Eos % (Auto) 0.5 Baso % (Auto) 0.2 Immature Gran # (Auto) 0.02 Neut # (Auto) 4.81 Lymph # (Auto) 0.85 L Pitkin # (Auto) 0.69 H Eos # (Auto) 0.03 Baso # (Auto) 0.01 Poikilocytosis Present Sodium 140 Potassium 3.8 D Chloride 103 Carbon Dioxide 31 Anion Gap 6.0 BUN 23 H Creatinine 3.48 H Est Cr Clr Drug Dosing 14.7 Est GFR ( Amer) 14.7 Est GFR (Non-Af Amer) 12.7 BUN/Creatinine Ratio 6.7 L Glucose 73 POC Glucose Calcium 8.0 L Magnesium 1.4 L Urine Total Volume 3700 Urine Creatinine < 13.0 Ur Creatinine 24 Hour 0.5 L Ur Total Protein 24 Hr 1302.4 H Urine Total Protein 35.2 07/14/19 10:59 WBC RBC Hgb Hct MCV MCH MCHC RDW Std Deviation RDW Coeff of Alejandro Plt Count MPV Immature Gran % (Auto) Neut % (Auto) Lymph % (Auto) Pitkin % (Auto) Eos % (Auto) Baso % (Auto) Immature Gran # (Auto) Neut # (Auto) Lymph # (Auto) Pitkin # (Auto) Eos # (Auto) Baso # (Auto) Poikilocytosis Sodium Potassium Chloride Carbon Dioxide Anion Gap BUN Creatinine Est Cr Clr Drug Dosing Est GFR ( Amer) Est GFR (Non-Af Amer) BUN/Creatinine Ratio Glucose POC Glucose 113 H Calcium Magnesium Urine Total Volume Urine Creatinine Ur Creatinine 24 Hour Ur Total Protein 24 Hr Urine Total Protein
[2019-07-14] MEDS: MONTELUKAST SODIUM 10 MG TABLET PO SCH (21:10)
[2019-07-14] MEDS: MIRTAZAPINE TAB 15 MG TAB PO SCH (21:11)
[2019-07-15 06:14] LABS: Hematocrit (blood only) 21.6 % (37-47); Hemoglobin 6.8 g/dL (12.0-16.0); Mean Corpuscular Hemoglobin 28.1 pg (25-34); Mean Corpuscular Hgb Conc 31.5 g/dL (32-36); Mean Corpuscular Volume 89.3 fL (80-100); Mean Platelet Volume 9.9 fL (7.4-10.4); Platelet Count 175 K/uL (130-400); RDW Coefficient of Variation 16.5 % (11.5-14.5); RDW Standard Deviation 54.4 fL (36.4-46.3); Red Blood Count 2.42 M/uL (4.2-5.4); White Blood Count 4.95 K/uL (4.8-10.8)
[2019-07-15 06:31] LABS: Basophils # (auto) 0.01 K/uL (0-0.2); Basophils % (auto) 0.2 %; Eosinophils # (auto) 0.13 K/uL (0-0.5); Eosinophils % (auto) 2.6 %; Hypochromasia Present; Immature Granulocytes # (auto) 0.03 K/uL (0.00-0.02); Immature Granulocytes % (auto) 0.6 %; Lymphocytes # (auto) 1.02 K/uL (1.2-3.4); Lymphocytes % (auto) 20.6 %; Monocytes # (auto) 0.49 K/uL (0.11-0.59); Monocytes % (auto) 9.9 %; Neutrophils # (auto) 3.27 K/uL (1.4-6.5); Neutrophils % (auto) 66.1 %
[2019-07-15 06:40] LABS: BUN Creatinine Ratio 7.9 (10-20); Calcium 8.1 mg/dl (8.5-10.1); Creatinine Clr Calc Pharmacy 16.2 ml/min; Est GFR (African American) 16.7; Est GFR (Non-African American) 14.4; Potassium 3.6 mmol/L (3.5-5.1)
[2019-07-15] MEDS ORDERED: SODIUM CHLORIDE 0.9% 250 ML IV PRN (06:53)
[2019-07-15] MEDS ORDERED: ACETAMINOPHEN 325 MG TAB PO ONE (06:55)
[2019-07-15] MEDS: TRAMADOL HCL 50 MG TABLET PO PRN ×2 (08:40→20:17)
[2019-07-15] MEDS: METOPROLOL SUCC 25MG EXT REL TAB PO SCH (08:41)
[2019-07-15] MEDS: LACTOBACILLUS ACIDOPHILUS (FLORANEX) TAB PO SCH ×4 (08:41→20:19)
[2019-07-15] MEDS: GABAPENTIN 100 MG CAP PO SCH ×3 (08:42→20:19)
[2019-07-15] MEDS: FLUOXETINE HCL 20 MG CAP PO SCH (08:42)
[2019-07-15] MEDS: PANTOprazole 40 MG TAB PO SCH (08:42)
[2019-07-15] MEDS: ACYCLOVIR 400 MG TAB PO SCH (08:42)
[2019-07-15] MEDS: MAGNESIUM CHLORIDE 64MG DELAYED REL TAB PO SCH ×2 (08:43→20:18)
[2019-07-15] MEDS: FERROUS GLUCONATE 324 MG TAB PO SCH (08:43)
[2019-07-15] MEDS: FLUTICASONE/SALMETEROL (ADVAIR) 500/50 INH 14 PUFF INH SCH ×2 (08:43→20:17)
[2019-07-15] MEDS: ATORVASTATIN 40 MG TAB PO SCH (08:44)
--- NOTE | 2019-07-15 13:45 | Hospitalist Progress Note ---
Date of Service July 15, 2019 Assessment & Plan (1) Intramuscular hematoma: Has been complaining of left lower quadrant pain since this morning Examination revealed localized tenderness CT of the abdomen pelvis without contrast showed left ileo-psoas hematoma Will stop heparin and if the pain worsens will reverse heparin with protamine Discussed with on-call covering oncologist in [place]: No plan to restart any anticoagulation as of yet with recent development of hematoma. Plan to do repeat ultrasound of the upper extremity on Tuesday and further decision following the results of the test. Hemoglobin dropped to 7.4 from 7.9 on 07/13/2019 We will monitor H&H-hemoglobin dropped to 6.8 She will be given 2 units of PRBC Symptomatically improved doubt any ongoing bleeding We will monitor H&H (2) Hypotension: Hypotension likely due to GI loses R/O infectious source other than C diff Negative Orthostatics Blood cultures: 07/05 Coag Negative Staph--Likely contamination Repeat Blood Cx:Negative to date Urine culture growing multiple organisms Repeat Urine Cx:Yeast She received 2 L normal saline in the emergency room Blood pressure has been normal since admission Blood pressure medications is on hold Blood pressure remains at the lower level of normal (3) BARBRA (acute kidney injury): Secondary to ischemic ATN from hypotension and or Vanco toxicity Progressive renal impairment could be secondary to multiple myeloma Received intravenous vancomycin due to 1 out of 2 blood culture positive for coagulase-negative staph not lugdunensis She received 1 dose vancomycin IV 1750 mg 1900 on 07/03, then on 07/04 at 1100 1250 mg iv and 1 dose on 07/05 at 0500 same mg; stat 1800 vanco level 07/06 is 22 (36 hrs after last/3rd dose) Metabolic acidosis secondary to BARBRA Creatinine has been creeping up at 3.55 as of 07/11/2019 IV Lovenox and Vancomycin discontinued Renal USD:The kidneys demonstrate cortical atrophy and are without hydronephrosis. The bladder was decompressed and grossly unremarkable. Avoid Nephrotoxic agents as able Monitor renal function Appreciate nephrology input and recommendation 20 mEq KCl was given due to hypokalemia of 3.4 Creatinine level has been increasing but the patient starts more diuresis as of today Kidney function has not been improving yet Renal function seems to be improving We will continue current treatment (4) Elevated lactic acid level: Doubt any sepsis lactate levels normalized with IV fluids CXR: no acute findings Possible UTI on UA/Cx (5) Possible urinary tract infection: Possible UTI on UA. Urine culture growing multiple organisms. Received Zosyn Repeat urine culture: Yeast Antibiotics have been discontinued (6) Right leg DVT: Lovenox discontinued due to BARBRA Discussed with projects manager/oncologist Dr. Maldonado for anticoagulation options on 07/05/19 Continue IV Heparin for now until renal function improves Like to start oral anticoagulation soon as kidney function has been improving Try to talk to the oncologist and will try again tomorrow Heparin has been stopped due to left ileo-psoas hematoma Will get repeat scan on Tuesday Will discuss with the oncologist regarding anticoagulation (7) Weakness: Chronic weakness. Uses rolling walker to ambulate. PT/OT eval (8) Palpitations: H/O palpitations and sinus tachycardia Continue metoprolol (9) Hypomagnesemia: Due to GI loses Replete electrolytes as needed (10) C. difficile diarrhea: Reportedly diagnosed with C-diff at [facility] during recent admission 06/25/19 No history of C. difficile in the past as per patient Continue p.o. vancomycin May need slow vancomycin taper given immunocompromise state Diarrhea improved (11) Multiple myeloma: H/O Multiple myeloma. Follows with Dr Maldonado oncology [place] Stated last chemo was one month ago recommended to hold Revlimid due to acute infection Needs follow up with Oncology upon discharge Likely has flareup of multiple myeloma (12) MOHAN (obstructive sleep apnea): (13) Nocturnal hypoxemia: Noncompliant with CPAP HS Continue oxygen 3L nasal cannula HS (14) Asthma: Stable As of exacerbation Continue home inhalers DVT Px: on IV heparin -discontinued due to intramuscular bleeding Code Status Full code Disposition Plan to discharge to rehab facility when medically stable Follows with Dr Herrera [facility] for routine care Subjective 07/11/2019 The patient was seen and examined in telemetry unit She has been complaining of vague symptoms involving pain in multiple joints Denies any acute distress 07/12/2019 The patient was seen and examined in telemetry unit She feels a little bit better today and that she is out of bed on a chair Has generalized weakness but denies any other significant symptoms 07/13/2019 The patient was seen and examined in telemetry unit She has been complaining of left lower quadrant pain since this morning She did not participate any PT for today Denies any shortness of breath and/or chest pain 07/14/2019 Patient is seen and examined in telemetry unit Her pain in the left lower quadrant is better Remains generally weak and lethargic Denies any shortness of breath and/or palpitation 07/15/2019 The patient was seen and examined in telemetry unit She looks better today and her pain in the left lower quadrant is improved She has been getting blood transfusion for blood loss anemia Denies any significant symptoms Review of Systems Review of Systems: All systems reviewed and are unremarkable except as noted below Constitutional: + fatigue, + weakness and + anorexia Gastrointestinal: + abdominal pain (Left lower quadrant which has been improving) Physical Exam Physical Exam: Lying on bed without any acute distress Constitutional: well developed, well nourished and + obese; no acute distress (sitting up in chair on RA) Eyes: EOM intact bilaterally ENMT: Ears: no external ear abnormality Nose: no external nose abnormality Mouth: + dry oral mucous membranes Neck: no nuchal rigidity Respiratory: normal respiratory effort Auscultation: + diminished lung sounds Cardiovascular: Rate/Rhythm: regular rate and regular rhythm Extremities: + edema (2+ BLE and some hand swelling) Gastrointestinal (Abdomen): Inspection/Auscultation: normal bowel sounds Percussion/Palpation: + abdomen tender (Minimal tenderness in left lower quadrant and left flank area-just immediately above the pelvis) and abdomen soft Musculoskeletal: Extremities: no muscle atrophy Skin: no rashes, warm and dry Neurologic: moves all extremities Psychiatric: A+Ox3, euthymic affect Speech: normal rate/rhythm/volume of speech Lymphatic: no cervical or axillary lymphadenopathy Results & Data Vital Signs (Past 12 Hours) Vital Signs Temp Pulse Pulse Resp BP BP Pulse Ox 07/15/19 13:26 37.4 C 94 H 16 132/80 92 07/15/19 12:30 36.7 C 99 H 16 130/82 91 07/15/19 11:31 36.8 C 101 H 16 138/85 92 07/15/19 10:31 36.7 C 96 H 16 131/79 91 07/15/19 10:01 36.8 C 97 H 16 128/78 92 07/15/19 09:46 36.7 C 96 H 16 137/77 94 07/15/19 09:36 36.6 C 95 H 16 131/76 94 07/15/19 09:27 36.3 C L 98 H 16 132/77 95 07/15/19 08:00 36.6 C 86 87 14 123/74 95 07/15/19 04:23 36.8 C 92 H 19 116/74 91 Laboratory Results Short CBC 07/15/19 Range/Units 05:29 WBC 4.95 (4.8-10.8) K/uL Hgb 6.8 L* (12.0-16.0) g/dL Hct 21.6 L (37-47) % Plt Count 175 (130-400) K/uL BMP 07/15/19 05:29 Sodium 140 Potassium 3.6 Chloride 105 Carbon Dioxide 29 BUN 25 H Creatinine 3.14 H D Glucose 74 Calcium 8.1 L Medications Administered Current Inpatient Medications Acetaminophen (Tylenol) 650 mg PO Q4H PRN PRN Reason: Pain or Fever Stop: 08/01/19 16:41 Last Admin: 07/13/19 11:48 Dose: 650 mg Documented by: Acyclovir (Zovirax) 400 mg PO DAILY [facility] Stop: 08/02/19 08:59 Last Admin: 07/15/19 08:42 Dose: 400 mg Documented by: Albuterol (Ventolin Hfa) 1 puffs INH Q6H PRN PRN Reason: Shortness Of Breath Or Wheezing Stop: 08/01/19 16:41 Atorvastatin Calcium (Lipitor) 40 mg PO DAILY [facility] Stop: 08/02/19 08:59 Last Admin: 07/15/19 08:44 Dose: 40 mg Documented by: Ferrous Gluconate (Ferrous Gluconate) 324 mg PO DAILY [facility] Stop: 08/02/19 08:59 Last Admin: 07/15/19 08:43 Dose: 324 mg Documented by: Fluoxetine HCl (Prozac) 40 mg PO QAM ОЛЕГ Stop: 08/02/19 08:59 Last Admin: 07/15/19 08:42 Dose: 40 mg Documented by: Gabapentin (Neurontin) 100 mg PO TID [facility] Stop: 08/01/19 20:59 Last Admin: 07/15/19 13:29 Dose: 100 mg Documented by: Sodium Chloride (Nss) 250 mls @ 15 mls/hr IV .[id number] PRN PRN Reason: For Transfusion Stop: 07/15/19 16:54 Lactobacillus Acidophilus (Floranex) 4 tab PO QIDM [facility] Stop: 08/05/19 20:59 Last Admin: 07/15/19 12:21 Dose: 4 tab Documented by: Magnesium Chloride (Slow-Mag) 64 mg PO BID [facility] Stop: 08/09/19 09:59 Last Admin: 07/15/19 08:43 Dose: 64 mg Documented by: Metoprolol Succinate (Toprol Xl) 12.5 mg PO QAM [facility] Stop: 08/02/19 08:59 Last Admin: 07/15/19 08:41 Dose: 12.5 mg Documented by: Miconazole Nitrate (Desenex) 1 appln EXT PRN PRN PRN Reason: Affected Skin Folds Stop: 08/10/19 07:52 Mirtazapine (Remeron) 15 mg PO [facility] Stop: 08/01/19 20:59 Last Admin: 07/14/19 21:11 Dose: 15 mg Documented by: Montelukast Sodium (Singulair) 10 mg PO [facility] Stop: 08/01/19 20:59 Last Admin: 07/14/19 21:10 Dose: 10 mg Documented by: Nystatin (Mycostatin) 1 appln EXT BID PRN PRN Reason: Affected Skin Folds Stop: 08/01/19 17:19 Last Admin: 07/02/19 18:19 Dose: 1 appln Documented by: Ondansetron HCl (Zofran) 4 mg IV Q6H PRN PRN Reason: Nausea And Vomiting Stop: 08/01/19 16:41 Last Admin: 07/10/19 18:15 Dose: 4 mg Documented by: Pantoprazole Sodium (Protonix) 40 mg PO DAILY [facility]; Protocol Stop: 08/02/19 08:59 Last Admin: 07/15/19 08:42 Dose: 40 mg Documented by: Potassium Chloride (Klor-Con M20) 20 meq PO BID [facility] Stop: 08/01/19 20:59 Last Admin: 07/07/19 08:39 Dose: 20 meq Documented by: Fluticasone/Salmeterol (Advair Diskus 500/50) 1 puffs INH BID [facility]; Protocol Stop: 08/01/19 20:59 Last Admin: 07/15/19 08:43 Dose: 1 puffs Documented by: Tramadol HCl (Ultram) 50 mg PO Q6H PRN PRN Reason: Pain Stop: 08/01/19 16:41 Last Admin: 07/15/19 08:40 Dose: 50 mg Documented by:
--- NOTE | 2019-07-15 17:47 | Nephrology Progress Note ---
Date of Service July 15, 2019 Assessment & Plan (1) BARBRA (acute kidney injury): nonoliguric ischemic atn versus atn from vanco toxicity versus also possible glomerular or other process relating to myeloma. baseline creatinine 0.9; at baseline on 07/02 presentation. Cr 3.1 form 3.4 yesterday. Non glomerular myeloma related differential includes light chain cast nephropathy, uric acid nephropathy, interstitial nephritis. did have 1 dose vancomycin IV 1750 mg 1900 on 07/03, then on 07/04 at 1100 1250 mg iv and 1 dose on 07/05 at 0500 same mg; stat 1800 vanco level 07/06 is 22 (36 hrs after last/3rd dose) -daily bmp -cont nephrotoxin avoidance -urine sediment concerning >> some blood, 500 mg proteinuria on presentation; -glomerular disease serologies-pending (2) Hypotension: -BP is better now -her C diff at outside facility [facility] was negative; however pt on po vanco per oncology OP recommendations -reluctant to stop current BB dose d/t a fib and would continue (3) Anemia of chronic disease: was 11.5 on presentation hgb; now 6.8 from bleeding in the psoas, getting blood today; -not a candidate for epo unless hematology clears her d/t myeloma -transfuse prn -daily cbc Subjective She feels better. No SOB. she is making a lot of urine. Getting blood transfusion Review of Systems Review of Systems: All systems reviewed & are unremarkable except as noted in HPI & below Physical Exam Physical Exam: General exam: Appears comfortable, no acute distress HEENT: Pupils are equal and reactive to light Neck: No JVD, neck is supple trachea is midline Respiratory system: Clear breath sounds bilaterally. Gastrointestinal: Abdomen is soft, non distended, non tender, bowel sounds are present CVS: Regular rate and rhythm. No murmurs, rubs or gallops Musculoskeletal: No joint or muscle tenderness Extremities: Non tender, 2+ edema, peripheral pulses are present Neuro: Oriented, no tremors, no focal neurological deficits Skin: No rashes Results & Data Vital Signs (Past 12 Hours) Vital Signs Temp Pulse Pulse Resp BP BP BP 07/15/19 16:00 37.0 C 93 H 16 127/80 07/15/19 15:27 37.0 C 93 H 16 127/84 07/15/19 15:15 36.7 C 95 H 17 125/80 07/15/19 14:27 37.1 C 94 H 16 126/79 07/15/19 13:57 36.8 C 94 H 16 129/83 07/15/19 13:42 36.6 C 93 H 16 127/80 07/15/19 13:26 37.4 C 94 H 16 132/80 07/15/19 12:30 36.7 C 99 H 16 130/82 07/15/19 11:31 36.8 C 101 H 16 138/85 07/15/19 10:31 36.7 C 96 H 16 131/79 07/15/19 10:01 36.8 C 97 H 16 128/78 07/15/19 09:46 36.7 C 96 H 16 137/77 07/15/19 09:36 36.6 C 95 H 16 131/76 07/15/19 09:27 36.3 C L 98 H 16 132/77 07/15/19 08:00 36.6 C 86 87 14 123/74 Pulse Ox 07/15/19 16:00 93 07/15/19 15:27 92 07/15/19 15:15 93 07/15/19 14:27 93 07/15/19 13:57 92 07/15/19 13:42 95 07/15/19 13:26 92 07/15/19 12:30 91 07/15/19 11:31 92 07/15/19 10:31 91 07/15/19 10:01 92 07/15/19 09:46 94 07/15/19 09:36 94 07/15/19 09:27 95 07/15/19 08:00 95 Laboratory Results Laboratory Results - last 24 hr 07/15/19 07/15/19 07/15/19 05:29 05:29 05:29 WBC 4.95 RBC 2.42 L Hgb 6.8 L* Hct 21.6 L MCV 89.3 MCH 28.1 MCHC 31.5 L RDW Std Deviation 54.4 H RDW Coeff of Alejandro 16.5 H Plt Count 175 MPV 9.9 Immature Gran % (Auto) 0.6 Neut % (Auto) 66.1 Lymph % (Auto) 20.6 [place] % (Auto) 9.9 Eos % (Auto) 2.6 Baso % (Auto) 0.2 Immature Gran # (Auto) 0.03 H Neut # (Auto) 3.27 Lymph # (Auto) 1.02 L [place] # (Auto) 0.49 Eos # (Auto) 0.13 Baso # (Auto) 0.01 Hypochromasia Present Sodium 140 Potassium 3.6 Chloride 105 Carbon Dioxide 29 Anion Gap 6.0 BUN 25 H Creatinine 3.14 H D Est Cr Clr Drug Dosing 16.2 Est GFR ( Amer) 16.7 Est GFR (Non-Af Amer) 14.4 BUN/Creatinine Ratio 7.9 L Glucose 74 Calcium 8.1 L Blood Type Blood Type Recheck O Positive Antibody Screen Crossmatch 07/15/19 07:04 WBC RBC Hgb Hct MCV MCH MCHC RDW Std Deviation RDW Coeff of Alejandro Plt Count MPV Immature Gran % (Auto) Neut % (Auto) Lymph % (Auto) [place] % (Auto) Eos % (Auto) Baso % (Auto) Immature Gran # (Auto) Neut # (Auto) Lymph # (Auto) [place] # (Auto) Eos # (Auto) Baso # (Auto) Hypochromasia Sodium Potassium Chloride Carbon Dioxide Anion Gap BUN Creatinine Est Cr Clr Drug Dosing Est GFR ( Amer) Est GFR (Non-Af Amer) BUN/Creatinine Ratio Glucose Calcium Blood Type O Positive Blood Type Recheck Antibody Screen NEGATIVE Crossmatch See Detail
[2019-07-15] MEDS: MIRTAZAPINE TAB 15 MG TAB PO SCH (20:18)
[2019-07-15] MEDS: MONTELUKAST SODIUM 10 MG TABLET PO SCH (20:18)
[2019-07-16 06:16] LABS: Basophils # (auto) 0.01 K/uL (0-0.2); Basophils % (auto) 0.2 %; Eosinophils # (auto) 0.15 K/uL (0-0.5); Hematocrit (blood only) 27.6 % (37-47); Hemoglobin 8.9 g/dL (12.0-16.0); Immature Granulocytes # (auto) 0.04 K/uL (0.00-0.02); Immature Granulocytes % (auto) 0.8 %; Lymphocytes # (auto) 0.83 K/uL (1.2-3.4); Lymphocytes % (auto) 16.6 %; Mean Corpuscular Hemoglobin 27.9 pg (25-34); Mean Corpuscular Hgb Conc 32.2 g/dL (32-36); Mean Corpuscular Volume 86.5 fL (80-100); Mean Platelet Volume 10.1 fL (7.4-10.4); Monocytes # (auto) 0.52 K/uL (0.11-0.59); Monocytes % (auto) 10.4 %; Neutrophils # (auto) 3.44 K/uL (1.4-6.5); Platelet Count 200 K/uL (130-400); RDW Coefficient of Variation 17.3 % (11.5-14.5); RDW Standard Deviation 54.8 fL (36.4-46.3); Red Blood Count 3.19 M/uL (4.2-5.4); White Blood Count 4.99 K/uL (4.8-10.8)
[2019-07-16 06:48] LABS: Calcium 8.1 mg/dl (8.5-10.1); Creatinine Clr Calc Pharmacy 19.3 ml/min; Est GFR (African American) 20.8; Est GFR (Non-African American) 17.9; Potassium 3.4 mmol/L (3.5-5.1)
[2019-07-16] MEDS ORDERED: POTASSIUM CHLORIDE 20 MEQ TABCR PO STA (09:20)
[2019-07-16] MEDS: GABAPENTIN 100 MG CAP PO SCH ×3 (09:21→20:17)
[2019-07-16] MEDS: LACTOBACILLUS ACIDOPHILUS (FLORANEX) TAB PO SCH ×4 (09:22→20:18)
[2019-07-16] MEDS: PANTOprazole 40 MG TAB PO SCH (09:22)
[2019-07-16] MEDS: FERROUS GLUCONATE 324 MG TAB PO SCH (09:22)
[2019-07-16] MEDS: FLUTICASONE/SALMETEROL (ADVAIR) 500/50 INH 14 PUFF INH SCH ×2 (09:22→20:18)
[2019-07-16] MEDS: FLUOXETINE HCL 20 MG CAP PO SCH (09:23)
[2019-07-16] MEDS: ATORVASTATIN 40 MG TAB PO SCH (09:23)
[2019-07-16] MEDS: ACYCLOVIR 400 MG TAB PO SCH (09:23)
[2019-07-16] MEDS: METOPROLOL SUCC 25MG EXT REL TAB PO SCH (09:24)
[2019-07-16] MEDS: MAGNESIUM CHLORIDE 64MG DELAYED REL TAB PO SCH ×2 (09:24→21:56)
[2019-07-16] MEDS: POTASSIUM CHLORIDE 20 MEQ TABCR PO SCH ×2 (11:44→20:17)
[2019-07-16] MEDS: ONDANSETRON INJ 2 MG/ML 2 ML VIAL IV PRN (12:23)
--- NOTE | 2019-07-16 13:35 | Hospitalist Progress Note ---
Date of Service July 16, 2019 Assessment & Plan (1) Intramuscular hematoma: Has been complaining of left lower quadrant pain since this morning Examination revealed localized tenderness CT of the abdomen pelvis without contrast showed left ileo-psoas hematoma Will stop heparin and if the pain worsens will reverse heparin with protamine Discussed with on-call covering oncologist in [place]: No plan to restart any anticoagulation as of yet with recent development of hematoma. Plan to do repeat ultrasound of the upper extremity on Tuesday and further decision following the results of the test. Hemoglobin dropped to 7.4 from 7.9 on 07/13/2019 We will monitor H&H-hemoglobin dropped to 6.8 She will be given 2 units of PRBC Symptomatically improved doubt any ongoing bleeding We will monitor H&H-8.9 on 07/16 Will ask for increase in PT and OT (2) Hypotension: Hypotension likely due to GI loses R/O infectious source other than C diff Negative Orthostatics Blood cultures: 07/05 Coag Negative Staph--Likely contamination Repeat Blood Cx:Negative to date Urine culture growing multiple organisms Repeat Urine Cx:Yeast She received 2 L normal saline in the emergency room Blood pressure has been normal since admission Blood pressure medications is on hold Blood pressure remains at the lower level of normal (3) BARBRA (acute kidney injury): Secondary to ischemic ATN from hypotension and or Vanco toxicity Progressive renal impairment could be secondary to multiple myeloma Received intravenous vancomycin due to 1 out of 2 blood culture positive for coagulase-negative staph not lugdunensis She received 1 dose vancomycin IV 1750 mg 1900 on 07/03, then on 07/04 at 1100 1250 mg iv and 1 dose on 07/05 at 0500 same mg; stat 1800 vanco level 07/06 is 22 (36 hrs after last/3rd dose) Metabolic acidosis secondary to BARBRA Creatinine has been creeping up at 3.55 as of 07/11/2019 IV Lovenox and Vancomycin discontinued Renal USD:The kidneys demonstrate cortical atrophy and are without hydronephrosis. The bladder was decompressed and grossly unremarkable. Avoid Nephrotoxic agents as able Monitor renal function Appreciate nephrology input and recommendation Renal function has been improving for the last day or 2 We will supplement potassium as needed with diuretic phase We will continue current management (4) Elevated lactic acid level: Doubt any sepsis lactate levels normalized with IV fluids CXR: no acute findings Possible UTI on UA/Cx (5) Possible urinary tract infection: Possible UTI on UA. Urine culture growing multiple organisms. Received Zosyn Repeat urine culture: Yeast Antibiotics have been discontinued (6) Right leg DVT: Lovenox discontinued due to BARBRA Discussed with testing shaking shipping/oncologist Dr. Maldonado for anticoagulation options on 07/05/19 Continue IV Heparin for now until renal function improves Like to start oral anticoagulation soon as kidney function has been improving Try to talk to the oncologist and will try again tomorrow Heparin has been stopped due to left ileo-psoas hematoma Will get repeat scan on Tuesday Will discuss with the oncologist regarding anticoagulation Will get ultrasound of the lower extremities if there is any clot most likely she will need to have a IVC filter placement (7) Weakness: Chronic weakness. Uses rolling walker to ambulate. PT/OT eval (8) Palpitations: H/O palpitations and sinus tachycardia Continue metoprolol (9) Hypomagnesemia: Due to GI loses Replete electrolytes as needed (10) C. difficile diarrhea: Reportedly diagnosed with C-diff at [facility] during recent admission 06/25/19 No history of C. difficile in the past as per patient Continue p.o. vancomycin May need slow vancomycin taper given immunocompromise state Diarrhea improved (11) Multiple myeloma: H/O Multiple myeloma. Follows with Dr Maldonado oncology [place] Stated last chemo was one month ago recommended to hold Revlimid due to acute infection Needs follow up with Oncology upon discharge Likely has flareup of multiple myeloma (12) MOHAN (obstructive sleep apnea): (13) Nocturnal hypoxemia: Noncompliant with CPAP HS Continue oxygen 3L nasal cannula HS (14) Asthma: Stable As of exacerbation Continue home inhalers DVT Px: on IV heparin -discontinued due to intramuscular bleeding Will check for DVT Code Status Full code Disposition Plan to discharge to rehab facility when medically stable Follows with Dr Herrera Javier [facility] for routine care Subjective 07/11/2019 The patient was seen and examined in telemetry unit She has been complaining of vague symptoms involving pain in multiple joints Denies any acute distress 07/12/2019 The patient was seen and examined in telemetry unit She feels a little bit better today and that she is out of bed on a chair Has generalized weakness but denies any other significant symptoms 07/13/2019 The patient was seen and examined in telemetry unit She has been complaining of left lower quadrant pain since this morning She did not participate any PT for today Denies any shortness of breath and/or chest pain 07/14/2019 Patient is seen and examined in telemetry unit Her pain in the left lower quadrant is better Remains generally weak and lethargic Denies any shortness of breath and/or palpitation 07/15/2019 The patient was seen and examined in telemetry unit She looks better today and her pain in the left lower quadrant is improved She has been getting blood transfusion for blood loss anemia Denies any significant symptoms 07/16/2019 The patient was seen and examined in telemetry unit She has been feeling a little better today without any pain the left lower quadrant She denies any other symptoms and she is out of bed on a chair Review of Systems Review of Systems: All systems reviewed and are unremarkable except as noted below Constitutional: + fatigue, + weakness and + anorexia Gastrointestinal: + abdominal pain (Left lower quadrant which has been improving) Musculoskeletal: Pain in the left lower quadrant and left flank area Physical Exam Physical Exam: Sitting on a chair without any acute distress Constitutional: well developed, well nourished and + obese; no acute distress (sitting up in chair on RA) Eyes: EOM intact bilaterally ENMT: Ears: no external ear abnormality Nose: no external nose abnormality Mouth: + dry oral mucous membranes Neck: no nuchal rigidity Respiratory: normal respiratory effort Auscultation: + diminished lung sounds and + crackles (Minimal crackles at the bases) Cardiovascular: Rate/Rhythm: regular rate and regular rhythm Extremities: + edema (2+ BLE and some hand swelling) Gastrointestinal (Abdomen): Inspection/Auscultation: normal bowel sounds Percussion/Palpation: abdomen soft; abdomen nontender Musculoskeletal: Extremities: no muscle atrophy Skin: no rashes, warm and dry Neurologic: moves all extremities Psychiatric: A+Ox3, euthymic affect Speech: normal rate/rhythm/volume of speech Lymphatic: no cervical or axillary lymphadenopathy Results & Data Vital Signs (Past 12 Hours) Vital Signs Temp Pulse Pulse Pulse Resp BP Pulse Ox 07/16/19 11:00 36.7 C 72 98 H 18 132/67 98 07/16/19 08:00 89 07/16/19 07:51 36.7 C 68 22 146/62 H 95 07/16/19 04:00 36.9 C 92 H 18 129/82 93 Laboratory Results Short CBC 07/16/19 Range/Units 05:27 WBC 4.99 (4.8-10.8) K/uL Hgb 8.9 L (12.0-16.0) g/dL Hct 27.6 L (37-47) % Plt Count 200 (130-400) K/uL BMP 07/16/19 05:27 Sodium 139 Potassium 3.4 L Chloride 106 Carbon Dioxide 27 BUN 26 H Creatinine 2.62 H D Glucose 80 Calcium 8.1 L Medications Administered Current Inpatient Medications Acetaminophen (Tylenol) 650 mg PO Q4H PRN PRN Reason: Pain or Fever Stop: 08/01/19 16:41 Last Admin: 07/13/19 11:48 Dose: 650 mg Documented by: Acyclovir (Zovirax) 400 mg PO DAILY [facility] Stop: 08/02/19 08:59 Last Admin: 07/16/19 09:23 Dose: 400 mg Documented by: Albuterol (Ventolin Hfa) 1 puffs INH Q6H PRN PRN Reason: Shortness Of Breath Or Wheezing Stop: 08/01/19 16:41 Atorvastatin Calcium (Lipitor) 40 mg PO DAILY [facility] Stop: 08/02/19 08:59 Last Admin: 07/16/19 09:23 Dose: 40 mg Documented by: Ferrous Gluconate (Ferrous Gluconate) 324 mg PO DAILY [facility] Stop: 08/02/19 08:59 Last Admin: 07/16/19 09:22 Dose: 324 mg Documented by: Fluoxetine HCl (Prozac) 40 mg PO QAM [facility] Stop: 08/02/19 08:59 Last Admin: 07/16/19 09:23 Dose: 40 mg Documented by: Gabapentin (Neurontin) 100 mg PO TID [facility] Stop: 08/01/19 20:59 Last Admin: 07/16/19 13:11 Dose: 100 mg Documented by: Lactobacillus Acidophilus (Floranex) 4 tab PO QIDM [facility] Stop: 08/05/19 20:59 Last Admin: 07/16/19 11:44 Dose: 4 tab Documented by: Magnesium Chloride (Slow-Mag) 64 mg PO BID [facility] Stop: 08/09/19 09:59 Last Admin: 07/16/19 09:24 Dose: 64 mg Documented by: Metoprolol Succinate (Toprol Xl) 12.5 mg PO QAM [facility] Stop: 08/02/19 08:59 Last Admin: 07/16/19 09:24 Dose: 12.5 mg Documented by: Miconazole Nitrate (Desenex) 1 appln EXT PRN PRN PRN Reason: Affected Skin Folds Stop: 08/10/19 07:52 Mirtazapine (Remeron) [address] [facility] Stop: 08/01/19 20:59 Last Admin: 07/15/19 20:18 Dose: 15 mg Documented by: Montelukast Sodium (Singulair) [address] [facility] Stop: 08/01/19 20:59 Last Admin: 07/15/19 20:18 Dose: 10 mg Documented by: Nystatin (Mycostatin) 1 appln EXT BID PRN PRN Reason: Affected Skin Folds Stop: 08/01/19 17:19 Last Admin: 07/02/19 18:19 Dose: 1 appln Documented by: Ondansetron HCl (Zofran) 4 mg IV Q6H PRN PRN Reason: Nausea And Vomiting Stop: 08/01/19 16:41 Last Admin: 07/16/19 12:23 Dose: 4 mg Documented by: Pantoprazole Sodium (Protonix) 40 mg PO DAILY [facility]; Protocol Stop: 08/02/19 08:59 Last Admin: 07/16/19 09:22 Dose: 40 mg Documented by: Potassium Chloride (Klor-Con M20) 20 meq PO BID [facility] Stop: 08/01/19 20:59 Last Admin: 07/16/19 11:44 Dose: 20 meq Documented by: Fluticasone/Salmeterol (Advair Diskus 500/50) 1 puffs INH BID [facility]; Protocol Stop: 08/01/19 20:59 Last Admin: 07/16/19 09:22 Dose: 1 puffs Documented by: Tramadol HCl (Ultram) 50 mg PO Q6H PRN PRN Reason: Pain Stop: 08/01/19 16:41 Last Admin: 07/15/19 20:17 Dose: 50 mg Documented by:
--- NOTE | 2019-07-16 14:41 | Ultrasound Report ---
ULTRASOUND BILATERAL LOWER EXTREMITY VENOUS CLINICAL HISTORY: Deep venous thrombosis. COMPARISON STUDY: Bilateral lower extremity venous ultrasound dated 07/02/2019. TECHNIQUE: Real-time, grayscale, and color Doppler sonography of the deep veins of the right and left lower extremity was performed from the inguinal crease to the calf. Compression and augmentation wer e utilized. FINDINGS: There is no sonographic evidence of deep venous thrombosis identified in the right or left lower extremity. The common femoral, superficial femoral, and popliteal veins are patent and normally compressible bilaterally. The greater saphenous vein and the profunda femoris vein at the junction w ith the common femoral vein are clear in both legs. The visualized calf veins are patent bilaterally. Soft tissue edema is identified in the left calf. A hypoechoic nonvascular nodule is seen in soft ti ssues at the indicated site of interest measuring 1.5 x 0.9 x 1.2 cm. IMPRESSION: 1. There is no sonographic evidence of deep venous thrombosis identified in the right or left lower e xtremity. 2. Soft tissue edema is present within the left calf. 3. There is a 1.5 cm indeterminate hypoechoic nodule within the soft tissues of the medial left calf at the indicated site of interest. ACT 112: Negative or not required by law. Electronically signed by: Carlos Chopra M.D. 07/16/2019 2:40 PM
[2019-07-16] MEDS: TRAMADOL HCL 50 MG TABLET PO PRN (16:32)
--- NOTE | 2019-07-16 17:39 | Nephrology Progress Note ---
Date of Service July 16, 2019 Assessment & Plan (1) BARBRA (acute kidney injury): nonoliguric ischemic atn versus atn from vanco toxicity versus also possible glomerular or other process relating to myeloma. baseline creatinine 0.9; at baseline on 07/02 presentation. Cr 2.6 from 3.1 yesterday. Non glomerular myeloma related differential includes light chain cast nephropathy, interstitial nephritis. uric acid nephropathy unlikely given normal serum levels. did have 1 dose vancomycin IV 1750 mg 1900 on 07/03, then on 07/04 at 1100 1250 mg iv and 1 dose on 07/05 at 0500 same mg; stat 1800 vanco level 07/06 is 22 (36 hrs after last/3rd dose) -she is a poor bx candidate and clinically improving; defer consideration of bx for now -daily bmp -cont nephrotoxin avoidance -urine sediment concerning >> some blood, 500 mg proteinuria on presentation>> 24 hr urine shows 1.3 gm proteinuria -glomerular disease serologies-pending and will f/u -will remove hernandez (2) Hypotension: -BP is better now -her C diff at outside facility [facility] was negative; however pt on po vanco per oncology OP recommendations -reluctant to stop current BB dose d/t a fib and would continue (3) Anemia of chronic disease: was 11.5 on presentation hgb; dropped to 6.8 from psoas bleed > got blood 07/15; improving; -not a candidate for epo unless hematology clears her d/t myeloma -transfuse prn -daily cbc Subjective seen on rounds this am 0940; no copmlaints; swelling improving some; still porr po and some N and feels "sick" today Review of Systems Review of Systems: All systems reviewed & are unremarkable except as noted in HPI & below Physical Exam Constitutional: well developed and well nourished; no acute distress (on RA in bed) Eyes: EOM intact bilaterally ENMT: Ears: no external ear abnormality Nose: no external nose abnormality Mouth: + dry oral mucous membranes Neck: no nuchal rigidity Respiratory: normal respiratory effort Auscultation: lungs clear to auscultation bilaterally and + diminished lung sounds Cardiovascular: Rate/Rhythm: regular rhythm and + tachycardic Extremities: + edema (trace - 1+ BLE ) Gastrointestinal (Abdomen): Inspection/Auscultation: normal bowel sounds Percussion/Palpation: abdomen soft; abdomen nontender Musculoskeletal: Extremities: strength 5/5 throughout Skin: no rashes, warm and dry Neurologic: grant, fluent speech, no tremor Psychiatric: A+Ox3, euthymic affect Speech: normal rate/rhythm/volume of speech Results & Data Vital Signs (Past 12 Hours) Vital Signs Temp Pulse Pulse Pulse Resp BP BP 07/16/19 15:46 88 07/16/19 15:06 36.6 C 82 16 104/69 07/16/19 11:00 36.7 C 72 98 H 18 132/67 07/16/19 08:00 89 07/16/19 07:51 36.7 C 68 22 146/62 H Pulse Ox 07/16/19 15:46 07/16/19 15:06 95 07/16/19 11:00 98 07/16/19 08:00 07/16/19 07:51 95 Laboratory Results 07/16/19 05:27 07/16/19 05:27
[2019-07-16] MEDS: MONTELUKAST SODIUM 10 MG TABLET PO SCH (20:17)
[2019-07-16] MEDS: MIRTAZAPINE TAB 15 MG TAB PO SCH (20:17)
[2019-07-17] MEDS: ACETAMINOPHEN 325 MG TAB PO PRN (03:39)
[2019-07-17 06:20] LABS: Basophils # (auto) 0.02 K/uL (0-0.2); Basophils % (auto) 0.4 %; Eosinophils % (auto) 4.3 %; Hematocrit (blood only) 27.9 % (37-47); Hemoglobin 9.3 g/dL (12.0-16.0); Immature Granulocytes # (auto) 0.04 K/uL (0.00-0.02); Immature Granulocytes % (auto) 0.9 %; Lymphocytes # (auto) 0.89 K/uL (1.2-3.4); Lymphocytes % (auto) 19.1 %; Mean Corpuscular Hemoglobin 29.2 pg (25-34); Mean Corpuscular Hgb Conc 33.3 g/dL (32-36); Mean Corpuscular Volume 87.7 fL (80-100); Mean Platelet Volume 9.8 fL (7.4-10.4); Monocytes # (auto) 0.56 K/uL (0.11-0.59); Neutrophils # (auto) 2.95 K/uL (1.4-6.5); Neutrophils % (auto) 63.3 %; Platelet Count 212 K/uL (130-400); RDW Coefficient of Variation 17.1 % (11.5-14.5); RDW Standard Deviation 54.8 fL (36.4-46.3); Red Blood Count 3.18 M/uL (4.2-5.4); White Blood Count 4.66 K/uL (4.8-10.8)
[2019-07-17 06:57] LABS: BUN Creatinine Ratio 9.9 (10-20); Calcium 8.1 mg/dl (8.5-10.1); Creatinine Clr Calc Pharmacy 22.9 ml/min; Est GFR (African American) 24.8; Est GFR (Non-African American) 21.4; Magnesium 1.3 mg/dl (1.8-2.4); Phosphorus 2.7 mg/dl (2.5-4.9); Potassium 4.3 mmol/L (3.5-5.1)
[2019-07-17] MEDS: FLUTICASONE/SALMETEROL (ADVAIR) 500/50 INH 14 PUFF INH SCH ×2 (08:40→20:20)
[2019-07-17] MEDS: METOPROLOL SUCC 25MG EXT REL TAB PO SCH (08:40)
[2019-07-17] MEDS: FLUOXETINE HCL 20 MG CAP PO SCH (08:41)
[2019-07-17] MEDS: GABAPENTIN 100 MG CAP PO SCH ×3 (08:41→20:22)
[2019-07-17] MEDS: ATORVASTATIN 40 MG TAB PO SCH (08:41)
[2019-07-17] MEDS: LACTOBACILLUS ACIDOPHILUS (FLORANEX) TAB PO SCH ×4 (08:41→20:20)
[2019-07-17] MEDS: PANTOprazole 40 MG TAB PO SCH (08:41)
[2019-07-17] MEDS: ACYCLOVIR 400 MG TAB PO SCH (08:41)
[2019-07-17] MEDS: POTASSIUM CHLORIDE 20 MEQ TABCR PO SCH ×2 (08:41→20:22)
[2019-07-17] MEDS: FERROUS GLUCONATE 324 MG TAB PO SCH (08:41)
[2019-07-17] MEDS: MAGNESIUM CHLORIDE 64MG DELAYED REL TAB PO SCH ×2 (08:42→20:24)
[2019-07-17] MEDS: MAGNESIUM SULFATE / D5W 1 GM/100 ML BAG IV SCH ×2 (10:24→11:37)
--- NOTE | 2019-07-17 16:10 | Hospitalist Progress Note ---
Date of Service July 17, 2019 Assessment & Plan (1) Intramuscular hematoma: Has been complaining of left lower quadrant pain since this morning Examination revealed localized tenderness CT of the abdomen pelvis without contrast showed left ileo-psoas hematoma Will stop heparin and if the pain worsens will reverse heparin with protamine Discussed with on-call covering oncologist in [place]: No plan to restart any anticoagulation as of yet with recent development of hematoma. Plan to do repeat ultrasound of the upper extremity on Tuesday and further decision following the results of the test. Hemoglobin dropped to 7.4 from 7.9 on 07/13/2019 We will monitor H&H-hemoglobin dropped to 6.8 She will be given 2 units of PRBC Symptomatically improved doubt any ongoing bleeding We will monitor H&H-8.9 on 07/16 Will ask for increase in PT and OT Repeat ultrasound of the legs did not show any DVTs Will need to discuss with the oncologist about the need for anticoagulation (2) Hypotension: Hypotension likely due to GI loses R/O infectious source other than C diff Negative Orthostatics Blood cultures: 07/05 Coag Negative Staph--Likely contamination Repeat Blood Cx:Negative to date Urine culture growing multiple organisms Repeat Urine Cx:Yeast She received 2 L normal saline in the emergency room Blood pressure has been normal since admission Medication has been restarted (3) BARBRA (acute kidney injury): Secondary to ischemic ATN from hypotension and or Vanco toxicity Progressive renal impairment could be secondary to multiple myeloma Received intravenous vancomycin due to 1 out of 2 blood culture positive for coagulase-negative staph not lugdunensis She received 1 dose vancomycin IV 1750 mg 1900 on 07/03, then on 07/04 at 1100 1250 mg iv and 1 dose on 07/05 at 0500 same mg; stat 1800 vanco level 07/06 is 22 (36 hrs after last/3rd dose) Metabolic acidosis secondary to BARBRA Creatinine has been creeping up at 3.55 as of 07/11/2019 IV Lovenox and Vancomycin discontinued Renal USD:The kidneys demonstrate cortical atrophy and are without hydronephrosis. The bladder was decompressed and grossly unremarkable. Avoid Nephrotoxic agents as able Monitor renal function Appreciate nephrology input and recommendation Renal function is much better and seems to be at her baseline Likely to be discharged tomorrow and will have usual follow-up with the oncologist as an outpatient (4) Elevated lactic acid level: Doubt any sepsis lactate levels normalized with IV fluids CXR: no acute findings Possible UTI on UA/Cx (5) Possible urinary tract infection: Possible UTI on UA. Urine culture growing multiple organisms. Received Zosyn Repeat urine culture: Yeast Antibiotics have been discontinued (6) Right leg DVT: Lovenox discontinued due to BARBRA Discussed with shearing shed worker/oncologist Dr. Maldonado for anticoagulation options on 07/05/19 Continue IV Heparin for now until renal function improves Like to start oral anticoagulation soon as kidney function has been improving Try to talk to the oncologist and will try again tomorrow Heparin has been stopped due to left ileo-psoas hematoma Repeat ultrasound of the lower extremity did not show any evidence of DVT Will not start any anticoagulation Further need for anticoagulation and the choice needs to be discussed with the oncologist (7) Weakness: Chronic weakness. Uses rolling walker to ambulate. PT/OT eval (8) Palpitations: H/O palpitations and sinus tachycardia Continue metoprolol (9) Hypomagnesemia: Due to GI loses Replete electrolytes as needed (10) C. difficile diarrhea: Reportedly diagnosed with C-diff at [facility] during recent admission 06/25/19 No history of C. difficile in the past as per patient Continue p.o. vancomycin May need slow vancomycin taper given immunocompromise state Diarrhea improved Vancomycin course is finished (11) Multiple myeloma: H/O Multiple myeloma. Follows with Dr Maldonado oncology [place] Stated last chemo was one month ago recommended to hold Revlimid due to acute infection Needs follow up with Oncology upon discharge Likely has flareup of multiple myeloma-we will need follow-up appointment with her oncologist as an outpatient (12) MOHAN (obstructive sleep apnea): (13) Nocturnal hypoxemia: Noncompliant with CPAP HS Continue oxygen 3L nasal cannula HS (14) Asthma: Stable As of exacerbation Continue home inhalers DVT Px: on IV heparin -discontinued due to intramuscular bleeding Will check for DVT-no DVTs Code Status Full code Disposition Plan to discharge to rehab facility when medically stable Follows with Dr Javier Herrera [facility] for routine care Subjective 07/11/2019 The patient was seen and examined in telemetry unit She has been complaining of vague symptoms involving pain in multiple joints Denies any acute distress 07/12/2019 The patient was seen and examined in telemetry unit She feels a little bit better today and that she is out of bed on a chair Has generalized weakness but denies any other significant symptoms 07/13/2019 The patient was seen and examined in telemetry unit She has been complaining of left lower quadrant pain since this morning She did not participate any PT for today Denies any shortness of breath and/or chest pain 07/14/2019 Patient is seen and examined in telemetry unit Her pain in the left lower quadrant is better Remains generally weak and lethargic Denies any shortness of breath and/or palpitation 07/15/2019 The patient was seen and examined in telemetry unit She looks better today and her pain in the left lower quadrant is improved She has been getting blood transfusion for blood loss anemia Denies any significant symptoms 07/16/2019 The patient was seen and examined in telemetry unit She has been feeling a little better today without any pain the left lower quadrant She denies any other symptoms and she is out of bed on a chair 07/17/2019 The patient was seen and examined in telemetry unit She has been much better as of today HIDA scan came back negative for any DVTs and her hemoglobin remains stable She has been getting physical therapy and likely to be discharged tomorrow Review of Systems Review of Systems: All systems reviewed and are unremarkable except as noted below Constitutional: + fatigue, + weakness and + anorexia Musculoskeletal: Pain in the left lower quadrant and left flank area Physical Exam Physical Exam: Her lying in bed comfortably Constitutional: well developed, well nourished and + obese; no acute distress (sitting up in chair on RA) Eyes: EOM intact bilaterally ENMT: Ears: no external ear abnormality Nose: no external nose abnormality Mouth: + dry oral mucous membranes Neck: no nuchal rigidity Respiratory: normal respiratory effort Auscultation: + diminished lung sounds and + crackles (Minimal crackles at the bases) Cardiovascular: Rate/Rhythm: regular rate and regular rhythm Extremities: + edema (1-2+ bilaterally) Gastrointestinal (Abdomen): Inspection/Auscultation: normal bowel sounds Percussion/Palpation: abdomen soft; abdomen nontender Musculoskeletal: Extremities: no muscle atrophy Skin: no rashes, warm and dry Neurologic: moves all extremities Psychiatric: A+Ox3, euthymic affect Speech: normal rate/rhythm/volume of speech Lymphatic: no cervical or axillary lymphadenopathy Results & Data Vital Signs (Past 12 Hours) Vital Signs Temp Pulse Pulse Resp BP Pulse Ox 07/17/19 15:57 36.6 C 91 H 20 100/67 93 07/17/19 15:10 89 07/17/19 12:00 36.8 C 97 H 18 114/74 95 07/17/19 08:00 90 07/17/19 07:10 36.9 C 92 H 18 116/76 95 Laboratory Results Short CBC 07/17/19 Range/Units 05:55 WBC 4.66 L (4.8-10.8) K/uL Hgb 9.3 L (12.0-16.0) g/dL Hct 27.9 L (37-47) % Plt Count 212 (130-400) K/uL BMP 07/17/19 05:55 Sodium 139 Potassium 4.3 D Chloride 109 H Carbon Dioxide 24 BUN 22 H Creatinine 2.26 H D Glucose 76 Calcium 8.1 L Medications Administered Current Inpatient Medications Acetaminophen (Tylenol) 650 mg PO Q4H PRN PRN Reason: Pain or Fever Stop: 08/01/19 16:41 Last Admin: 07/17/19 03:39 Dose: 650 mg Documented by: Acyclovir (Zovirax) 400 mg PO DAILY [facility] Stop: 08/02/19 08:59 Last Admin: 07/17/19 08:41 Dose: 400 mg Documented by: Albuterol (Ventolin Hfa) 1 puffs INH Q6H PRN PRN Reason: Shortness Of Breath Or Wheezing Stop: 08/01/19 16:41 Atorvastatin Calcium (Lipitor) 40 mg PO DAILY [facility] Stop: 08/02/19 08:59 Last Admin: 07/17/19 08:41 Dose: 40 mg Documented by: Ferrous Gluconate (Ferrous Gluconate) 324 mg PO DAILY [facility] Stop: 08/02/19 08:59 Last Admin: 07/17/19 08:41 Dose: 324 mg Documented by: Fluoxetine HCl (Prozac) 40 mg PO QAM [facility] Stop: 08/02/19 08:59 Last Admin: 07/17/19 08:41 Dose: 40 mg Documented by: Gabapentin (Neurontin) 100 mg PO TID [facility] Stop: 08/01/19 20:59 Last Admin: 07/17/19 14:50 Dose: 100 mg Documented by: Lactobacillus Acidophilus (Floranex) 4 tab PO QIDM [facility] Stop: 08/05/19 20:59 Last Admin: 07/17/19 11:37 Dose: 4 tab Documented by: Magnesium Chloride (Slow-Mag) 64 mg PO BID [facility] Stop: 08/09/19 09:59 Last Admin: 07/17/19 08:42 Dose: 64 mg Documented by: Metoprolol Succinate (Toprol Xl) 12.5 mg PO QAM [facility] Stop: 08/02/19 08:59 Last Admin: 07/17/19 08:40 Dose: 12.5 mg Documented by: Miconazole Nitrate (Desenex) 1 appln EXT PRN PRN PRN Reason: Affected Skin Folds Stop: 08/10/19 07:52 Mirtazapine (Remeron) 15 mg PO [facility] Stop: 08/01/19 20:59 Last Admin: 07/16/19 20:17 Dose: 15 mg Documented by: Montelukast Sodium (Singulair) 10 mg PO [facility] Stop: 08/01/19 20:59 Last Admin: 07/16/19 20:17 Dose: 10 mg Documented by: Nystatin (Mycostatin) 1 appln EXT BID PRN PRN Reason: Affected Skin Folds Stop: 08/01/19 17:19 Last Admin: 07/02/19 18:19 Dose: 1 appln Documented by: Ondansetron HCl (Zofran) 4 mg IV Q6H PRN PRN Reason: Nausea And Vomiting Stop: 08/01/19 16:41 Last Admin: 07/16/19 12:23 Dose: 4 mg Documented by: Pantoprazole Sodium (Protonix) 40 mg PO DAILY [facility]; Protocol Stop: 08/02/19 08:59 Last Admin: 07/17/19 08:41 Dose: 40 mg Documented by: Potassium Chloride (Klor-Con M20) 20 meq PO BID [facility] Stop: 08/01/19 20:59 Last Admin: 07/17/19 08:41 Dose: 20 meq Documented by: Fluticasone/Salmeterol (Advair Diskus 500/50) 1 puffs INH BID [facility]; Protocol Stop: 08/01/19 20:59 Last Admin: 07/17/19 08:40 Dose: 1 puffs Documented by: Tramadol HCl (Ultram) 50 mg PO Q6H PRN PRN Reason: Pain Stop: 08/01/19 16:41 Last Admin: 07/16/19 16:32 Dose: 50 mg Documented by:
--- NOTE | 2019-07-17 18:13 | Nephrology Progress Note ---
Date of Service July 17, 2019 Assessment & Plan (1) BARBRA (acute kidney injury): nonoliguric ischemic atn versus atn from vanco toxicity versus also possible glomerular or other process relating to myeloma. baseline creatinine 0.9; at baseline on 07/02 presentation. Cr 2.3 from 2.6 yesterday. Non glomerular myeloma related differential includes light chain cast nephropathy, interstitial nephritis. uric acid nephropathy unlikely given normal serum levels. did have 1 dose vancomycin IV 1750 mg 1900 on 07/03, then on 07/04 at 1100 1250 mg iv and 1 dose on 07/05 at 0500 same mg; stat 1800 vanco level 07/06 is 22 (36 hrs after last/3rd dose) -she is a poor bx candidate and clinically improving; defer consideration of bx for now -daily bmp -cont nephrotoxin avoidance -urine sediment concerning >> some blood, 500 mg proteinuria on presentation>> 24 hr urine shows 1.3 gm proteinuria -glomerular disease serologies-all pending and will f/u ->>>d/c recommendations -- weekly bmp, uacm, prot/creat x 4 wks and f/u in CKD clinic 4-6 wks in [facility] w/ me or [place] (2) Hypotension: -BP is better now -her C diff at outside facility [facility] was negative; however pt on po vanco per oncology OP recommendations -reluctant to stop current BB dose d/t a fib and would continue (3) Anemia of chronic disease: was 11.5 on presentation hgb; dropped to 6.8 from psoas bleed > got blood 07/15; improving; -not a candidate for epo unless hematology clears her d/t myeloma -transfuse prn -daily cbc Subjective further improvement - still minimal appetite but less swelling; for d/c to [facility] [place] tomorrow; Review of Systems Review of Systems: All systems reviewed & are unremarkable except as noted in HPI & below Physical Exam Constitutional: well developed and well nourished; no acute distress (on RA sitting up in chair) Eyes: EOM intact bilaterally ENMT: Ears: no external ear abnormality Nose: no external nose abnormality Mouth: + dry oral mucous membranes Neck: no nuchal rigidity Respiratory: normal respiratory effort Auscultation: lungs clear to auscultation bilaterally and + diminished lung sounds Cardiovascular: Rate/Rhythm: regular rate and regular rhythm Extremities: + edema (trace BLE R>L) Gastrointestinal (Abdomen): Inspection/Auscultation: normal bowel sounds Percussion/Palpation: abdomen soft; abdomen nontender Musculoskeletal: Extremities: strength 5/5 throughout Skin: no rashes, warm and dry Neurologic: grant, periodic /variable tremor Psychiatric: A+Ox3, euthymic affect Speech: normal rate/rhythm/volume of sp eech Results & Data Vital Signs (Past 12 Hours) Vital Signs Temp Pulse Pulse Resp BP Pulse Ox 07/17/19 15:57 36.6 C 91 H 20 100/67 93 07/17/19 15:10 89 07/17/19 12:00 36.8 C 97 H 18 114/74 95 07/17/19 08:00 90 07/17/19 07:10 36.9 C 92 H 18 116/76 95 Laboratory Results 07/17/19 05:55 07/17/19 05:55
[2019-07-17] MEDS: ONDANSETRON INJ 2 MG/ML 2 ML VIAL IV PRN (19:23)
[2019-07-17] MEDS: TRAMADOL HCL 50 MG TABLET PO PRN (20:19)
[2019-07-17] MEDS: MONTELUKAST SODIUM 10 MG TABLET PO SCH (20:23)
[2019-07-17] MEDS: MIRTAZAPINE TAB 15 MG TAB PO SCH (20:23)
[2019-07-18 05:53] LABS: Hematocrit (blood only) 28.4 % (37-47); Hemoglobin 9.1 g/dL (12.0-16.0); Mean Corpuscular Hemoglobin 28.3 pg (25-34); Mean Corpuscular Volume 88.5 fL (80-100); Mean Platelet Volume 9.3 fL (7.4-10.4); Platelet Count 253 K/uL (130-400); RDW Coefficient of Variation 16.7 % (11.5-14.5); RDW Standard Deviation 54.5 fL (36.4-46.3); Red Blood Count 3.21 M/uL (4.2-5.4); White Blood Count 4.34 K/uL (4.8-10.8)
[2019-07-18 06:23] LABS: BUN Creatinine Ratio 11.4 (10-20); Calcium 8.2 mg/dl (8.5-10.1); Creatinine Clr Calc Pharmacy 23.5 ml/min; Est GFR (African American) 27.6; Est GFR (Non-African American) 23.8; Potassium 4.3 mmol/L (3.5-5.1)
[2019-07-18] MEDS: ACETAMINOPHEN 325 MG TAB PO PRN (07:45)
[2019-07-18] MEDS: FLUTICASONE/SALMETEROL (ADVAIR) 500/50 INH 14 PUFF INH SCH ×2 (07:48→20:27)
[2019-07-18] MEDS: POTASSIUM CHLORIDE 20 MEQ TABCR PO SCH ×2 (07:49→20:28)
[2019-07-18] MEDS: FERROUS GLUCONATE 324 MG TAB PO SCH (07:50)
[2019-07-18] MEDS: PANTOprazole 40 MG TAB PO SCH (07:50)
[2019-07-18] MEDS: ATORVASTATIN 40 MG TAB PO SCH (07:50)
[2019-07-18] MEDS: METOPROLOL SUCC 25MG EXT REL TAB PO SCH (07:50)
[2019-07-18] MEDS: GABAPENTIN 100 MG CAP PO SCH ×3 (07:50→20:27)
[2019-07-18] MEDS: LACTOBACILLUS ACIDOPHILUS (FLORANEX) TAB PO SCH ×4 (07:50→20:28)
[2019-07-18] MEDS: MAGNESIUM CHLORIDE 64MG DELAYED REL TAB PO SCH ×2 (07:51→20:29)
[2019-07-18] MEDS: ACYCLOVIR 400 MG TAB PO SCH (07:51)
[2019-07-18] MEDS: FLUOXETINE HCL 20 MG CAP PO SCH (07:51)
--- NOTE | 2019-07-18 08:24 | Nephrology Progress Note ---
Date of Service July 18, 2019 Physical Exam Physical Exam: Constitutional: well developed and well nourished; no acute distress (on on room air sitting on side of bed) Eyes: EOM intact bilaterally ENMT: Ears: no external ear abnormality Nose: no external nose abnormality Mouth: + dry oral mucous membranes Neck: no nuchal rigidity Respiratory: normal respiratory effort Auscultation: Freckles right base and + diminished lung sounds Cardiovascular: Rate/Rhythm: regular rate and regular rhythm [] Extremities: [] Gastrointestinal (Abdomen): Inspection/Auscultation: normal bowel sounds Percussion/Palpation: abdomen soft; abdomen nontender Musculoskeletal: Extremities: strength 5/5 throughout Skin: no rashes, warm and dry Neurologic: grant, fluent speech, no tremo Psychiatric: A+Ox3, euthymic affect Speech: normal rate/rhythm/volume of speech : [no hernandez] Results & Data Vital Signs (Past 12 Hours) Vital Signs Temp Pulse Pulse Resp BP Pulse Ox 07/18/19 07:38 36.7 C 95 H 19 136/87 92 07/18/19 04:30 36.7 C 90 18 112/74 93 07/17/19 23:59 90 07/17/19 23:29 37.7 C H 93 H 18 107/64 94
[2019-07-18] MEDS: ONDANSETRON INJ 2 MG/ML 2 ML VIAL IV PRN (09:10)
--- NOTE | 2019-07-18 14:45 | Hospitalist Progress Note ---
Date of Service July 18, 2019 Assessment & Plan (1) Intramuscular hematoma: Has been complaining of left lower quadrant pain since this morning Examination revealed localized tenderness CT of the abdomen pelvis without contrast showed left ileo-psoas hematoma Discussed with on-call covering oncologist in [place]: No plan to restart any anticoagulation as of yet with recent development of hematoma. Plan to do repeat ultrasound of the upper extremity Hemoglobin dropped to 7.4 from 7.9, then 6.8 on 07/15/2019 Received 2 units of PRBC Repeat ultrasound of the B/L LE showed no DVTs case discussed with oncologist about anticoagulation and recommended to hold anticoagulant since repeat dopler b/L LE showed no evidence of DVT and pt developed hematoma while started on anticoagulant few days ago. (2) Hypotension: Hypotension likely due to GI loses R/O infectious source other than C diff Negative Orthostatics Blood cultures: 07/05 Coag Negative Staph--Likely contamination Repeat Blood Cx:Negative to date Urine culture growing multiple organisms Repeat Urine Cx:Yeast She received 2 L normal saline in the emergency room Blood pressure has been normal since admission Medication has been restarted BP stable (3) BARBRA (acute kidney injury): Secondary to ischemic ATN from hypotension and or Vanco toxicity Progressive renal impairment could be secondary to multiple myeloma Received intravenous vancomycin due to 1 out of 2 blood culture positive for coagulase-negative staph not lugdunensis She received 1 dose vancomycin IV 1750 mg 1900 on 07/03, then on 07/04 at 1100 1250 mg iv and 1 dose on 07/05 at 0500 same mg; stat 1800 vanco level 07/06 is 22 (36 hrs after last/3rd dose) Metabolic acidosis secondary to BARBRA Creatinine peaked to 3.7 Renal USD showed the kidneys demonstrate cortical atrophy and are without hydronephrosis. The bladder was decompressed and grossly unremarkable. Avoid Nephrotoxic agents as able Nephrology on board Monitor renal function Creatinine improved to 2.07 (4) Elevated lactic acid level: Doubt any sepsis lactate levels normalized with IV fluids CXR: no acute findings Possible UTI on UA/Cx (5) Possible urinary tract infection: Possible UTI on UA. Urine culture growing multiple organisms. Received Zosyn Repeat urine culture: Yeast Antibiotics have been discontinued (6) Right leg DVT: Lovenox discontinued due to BARBRA case discussed with telemedicine physician/oncologist Dr. Maldonado for anticoagulation options on 07/05/19 Continue IV Heparin for now until renal function improves Like to start oral anticoagulation soon as kidney function has been improving Heparin has been stopped due to left ileo-psoas hematoma Repeat ultrasound of the lower extremity did not show any evidence of DVT Will not start any anticoagulation Further need for anticoagulation and the choice needs to be discussed with the oncologist case discussed with oncologist about anticoagulation and recommended to hold anticoagulant since repeat dopler b/L LE showed no evidence of DVT and pt developed hematoma while started on anticoagulant few days ago. (7) Weakness: Chronic weakness. Uses rolling walker to ambulate. PT/OT eval (8) Palpitations: H/O palpitations and sinus tachycardia Continue metoprolol (9) Hypomagnesemia: Due to GI loses Replete electrolytes as needed (10) C. difficile diarrhea: Reportedly diagnosed with C-diff at [facility] during recent admission 06/25/19 No history of C. difficile in the past as per patient Diarrhea improved Completed the course of Vancomycin (11) Multiple myeloma: H/O Multiple myeloma. Follows with Dr Maldonado oncology [place] Stated last chemo was one month ago recommended to hold Revlimid due to acute infection Needs follow up with Oncology upon discharge Likely has flareup of multiple myeloma-we will need follow-up appointment with her oncologist as an outpatient (12) MOHAN (obstructive sleep apnea): (13) Nocturnal hypoxemia: Noncompliant with CPAP HS Continue oxygen 3L nasal cannula HS (14) Asthma: Stable As of exacerbation Continue home inhalers DVT Px: IV heparin -discontinued due to intramuscular bleeding Code Status Full code Disposition Waiting for placement to rehab Subjective Pt was seen and examined Lying in bed with no distress Pt said that she feels nauseated today Denies any chest pain, palpitation and SOB Physical Exam Physical Exam: General- No acute distress, obese Head- atraumatic Eyes- PERRL, EOMI, ENT- oropharynx clear Neck- supple, no JVD Lungs- diminished BS Heart- regular rhythm; no murmur Abdomen- normal bowel sounds, soft, nontender Extremities- no calf tenderness, +edema Neuro- alert, oriented x 3; PERRL, EOMI; no facial palsy; no dysarthria Skin- warm & dry Results & Data Vital Signs (Past 12 Hours) Vital Signs Temp Pulse Pulse Resp BP BP Pulse Ox 07/18/19 11:27 36.6 C 88 17 91/59 L 97 07/18/19 08:00 90 07/18/19 07:38 36.7 C 95 H 19 136/87 92 07/18/19 04:30 36.7 C 90 18 112/74 93
[2019-07-18 16:12] LABS: Albumin 2.1 g/dL (3.8-4.8); Alpha 1 Globulin 0.5 g/dL (0.2-0.3); Alpha 2 Globulin 0.7 g/dL (0.5-0.9); Anti Nuclear Antibody Screen POSITIVE (NEGATIVE); Beta-1-Globulin 0.3 g/dL (0.4-0.6); Beta-2-Globulin 0.2 g/dL (0.2-0.5); Complement C3 119 mg/dL (83-193); Free Kappa 24.2 mg/L (3.3-19.4); Free Kappa/Lambda Ratio 0.51 (0.26-1.65); Gamma Globulin 0.4 g/dL (0.8-1.7); Monoclonal Protein Band 1 0.2 g/dL (NONE DETECTED); Monoclonal Protein Band 2 DNR g/dL (NONE DETECTED); Monoclonal Protein Band 3 DNR g/dL (NONE DETECTED); Total Protein 4.2 g/dL (6.1-8.1)
[2019-07-18] MEDS: MONTELUKAST SODIUM 10 MG TABLET PO SCH (20:27)
[2019-07-18] MEDS: MIRTAZAPINE TAB 15 MG TAB PO SCH (20:28)
[2019-07-19 01:41] LABS: ANCA Screen Negative (Negative); Myeloperoxidase Ab <1.0 AI (<1.0); Proteinase-3 AB <1.0 AI (<1.0)
[2019-07-19] MEDS: POTASSIUM CHLORIDE 20 MEQ TABCR PO SCH ×2 (07:49→20:21)
[2019-07-19] MEDS: GABAPENTIN 100 MG CAP PO SCH ×3 (07:49→20:20)
[2019-07-19] MEDS: METOPROLOL SUCC 25MG EXT REL TAB PO SCH (07:50)
[2019-07-19] MEDS: LACTOBACILLUS ACIDOPHILUS (FLORANEX) TAB PO SCH ×4 (07:50→20:19)
[2019-07-19] MEDS: FLUTICASONE/SALMETEROL (ADVAIR) 500/50 INH 14 PUFF INH SCH ×2 (07:51→20:20)
[2019-07-19] MEDS: ATORVASTATIN 40 MG TAB PO SCH (07:51)
[2019-07-19] MEDS: FERROUS GLUCONATE 324 MG TAB PO SCH (07:51)
[2019-07-19] MEDS: ACYCLOVIR 400 MG TAB PO SCH (07:52)
[2019-07-19] MEDS: MAGNESIUM CHLORIDE 64MG DELAYED REL TAB PO SCH ×2 (07:52→20:21)
[2019-07-19] MEDS: PANTOprazole 40 MG TAB PO SCH (07:52)
[2019-07-19] MEDS: FLUOXETINE HCL 20 MG CAP PO SCH (07:53)
[2019-07-19 08:40] LABS: ANA Pattern Cytoplasmic; ANA Titer 1:40 titer
--- NOTE | 2019-07-19 16:18 | Hospitalist Progress Note ---
Date of Service July 19, 2019 Assessment & Plan (1) Intramuscular hematoma: Has been complaining of left lower quadrant pain since this morning Examination revealed localized tenderness CT of the abdomen pelvis without contrast showed left ileo-psoas hematoma Discussed with on-call covering oncologist in [place]: No plan to restart any anticoagulation as of yet with recent development of hematoma. Plan to do repeat ultrasound of the upper extremity Hemoglobin dropped to 7.4 from 7.9, then 6.8 on 07/15/2019 Received 2 units of PRBC Repeat ultrasound of the B/L LE showed no DVTs case discussed with oncologist about anticoagulation and recommended to hold anticoagulant since repeat dopler b/L LE showed no evidence of DVT and pt developed hematoma while started on anticoagulant few days ago. (2) Hypotension: Hypotension likely due to GI loses R/O infectious source other than C diff Negative Orthostatics Blood cultures: 07/05 Coag Negative Staph--Likely contamination Repeat Blood Cx:Negative to date Urine culture growing multiple organisms Repeat Urine Cx:Yeast She received 2 L normal saline in the emergency room Blood pressure has been normal since admission Medication has been restarted BP stable (3) BARBRA (acute kidney injury): Secondary to ischemic ATN from hypotension and or Vanco toxicity Progressive renal impairment could be secondary to multiple myeloma Received intravenous vancomycin due to 1 out of 2 blood culture positive for coagulase-negative staph not lugdunensis She received 1 dose vancomycin IV 1750 mg 1900 on 07/03, then on 07/04 at 1100 1250 mg iv and 1 dose on 07/05 at 0500 same mg; stat 1800 vanco level 07/06 is 22 (36 hrs after last/3rd dose) Metabolic acidosis secondary to BARBRA Creatinine peaked to 3.7 Renal USD showed the kidneys demonstrate cortical atrophy and are without hydronephrosis. The bladder was decompressed and grossly unremarkable. Avoid Nephrotoxic agents as able Nephrology on board Monitor renal function Creatinine improved to 2.07 case discussed with Nephrology recommended weekly bmp, uacm, prot/creat x 4 wks and f/u in CKD clinic 4-6 wks in [facility] (4) Elevated lactic acid level: Doubt any sepsis lactate levels normalized with IV fluids CXR: no acute findings Stable (5) Possible urinary tract infection: Possible UTI on UA. Urine culture growing multiple organisms. Received Zosyn Repeat urine culture grew Yeast Antibiotics have been discontinued (6) Right leg DVT: Lovenox discontinued due to BARBRA case discussed with wood patternmaker/oncologist Dr. Maldonado for anticoagulation options on 07/05/19 Continue IV Heparin for now until renal function improves Like to start oral anticoagulation soon as kidney function has been improving Heparin has been stopped due to left ileo-psoas hematoma Repeat ultrasound of the lower extremity did not show any evidence of DVT Will not start any anticoagulation Further need for anticoagulation and the choice needs to be discussed with the oncologist case discussed with oncologist about anticoagulation and recommended to hold anticoagulant since repeat dopler b/L LE showed no evidence of DVT and pt developed hematoma while started on anticoagulant few days ago. (7) Weakness: Chronic weakness. Uses rolling walker to ambulate. Plan to sent to [facility] today for rehab, then patient starts to cry and said that she wants to go home Pt gait is unsteady Continue PT/OT eval (8) Palpitations: H/O palpitations and sinus tachycardia Continue metoprolol (9) Hypomagnesemia: Due to GI loses Replete electrolytes as needed (10) C. difficile diarrhea: Reportedly diagnosed with C-diff at [facility] during recent admission 06/25/19 No history of C. difficile in the past as per patient Diarrhea improved Completed the course of Vancomycin (11) Multiple myeloma: H/O Multiple myeloma. Follows with Dr Maldonado oncology [place] Stated last chemo was one month ago recommended to hold Revlimid due to acute infection Needs follow up with Oncology upon discharge Likely has flareup of multiple myeloma-we will need follow-up appointment with her oncologist as an outpatient (12) MOHAN (obstructive sleep apnea): (13) Nocturnal hypoxemia: Noncompliant with CPAP HS Continue oxygen 3L nasal cannula HS (14) Asthma: Stable As of exacerbation Continue home inhalers DVT Px: IV heparin -discontinued due to intramuscular bleeding Code Status Full code Disposition refused to go to [facility] for rehab Subjective Pt was seen and examined Sitting in chair with no distress Pt said that she feels much better today She was able to participate in therapy Peer to peer review done today and insurance denied for inpatient therapy During the peer to peer review I explained to the insurance physician that pt gait is unstable She is not safe to go home yet Pt denies any chest pain, palpitation and SOB Physical Exam Physical Exam: General- No acute distress, obese Head- atraumatic Eyes- PERRL, EOMI, ENT- oropharynx clear Neck- supple, no JVD Lungs- diminished BS Heart- regular rhythm; no murmur Abdomen- normal bowel sounds, soft, nontender Extremities- no calf tenderness, +edema Neuro- alert, oriented x 3; PERRL, EOMI; no facial palsy; no dysarthria Skin- warm & dry Results & Data Vital Signs (Past 12 Hours) Vital Signs Temp Pulse Resp BP BP Pulse Ox 07/19/19 15:36 36.5 C 94 H 18 115/75 96 07/19/19 15:20 36.8 C 94 H 20 98/64 L 107/72 95 07/19/19 12:00 36.8 C 94 H 20 98/64 L 95 07/19/19 07:47 36.8 C 91 H 20 107/72 98
[2019-07-19] MEDS ORDERED: PROMETHAZINE HCL 12.5 MG in SODIUM CHLORIDE 0.9% 50 ML IV STA (17:35)
[2019-07-19] MEDS: MONTELUKAST SODIUM 10 MG TABLET PO SCH (20:20)
[2019-07-19] MEDS: MIRTAZAPINE TAB 15 MG TAB PO SCH (20:20)
[2019-07-19] MEDS: ACETAMINOPHEN 325 MG TAB PO PRN (20:21)
[2019-07-20 06:01] LABS: Hematocrit (blood only) 28.7 % (37-47); Hemoglobin 9.1 g/dL (12.0-16.0); Mean Corpuscular Hemoglobin 28.3 pg (25-34); Mean Corpuscular Hgb Conc 31.7 g/dL (32-36); Mean Corpuscular Volume 89.4 fL (80-100); Mean Platelet Volume 9.6 fL (7.4-10.4); Platelet Count 270 K/uL (130-400); RDW Coefficient of Variation 16.6 % (11.5-14.5); RDW Standard Deviation 54.6 fL (36.4-46.3); Red Blood Count 3.21 M/uL (4.2-5.4); White Blood Count 3.79 K/uL (4.8-10.8)
[2019-07-20] MEDS: ATORVASTATIN 40 MG TAB PO SCH (08:02)
[2019-07-20] MEDS: FERROUS GLUCONATE 324 MG TAB PO SCH (08:02)
[2019-07-20] MEDS: FLUTICASONE/SALMETEROL (ADVAIR) 500/50 INH 14 PUFF INH SCH (08:02)
[2019-07-20] MEDS: METOPROLOL SUCC 25MG EXT REL TAB PO SCH (08:02)
[2019-07-20] MEDS: GABAPENTIN 100 MG CAP PO SCH ×2 (08:03→12:38)
[2019-07-20] MEDS: LACTOBACILLUS ACIDOPHILUS (FLORANEX) TAB PO SCH ×2 (08:03→12:37)
[2019-07-20] MEDS: POTASSIUM CHLORIDE 20 MEQ TABCR PO SCH (08:03)
[2019-07-20] MEDS: FLUOXETINE HCL 20 MG CAP PO SCH (08:03)
[2019-07-20] MEDS: PANTOprazole 40 MG TAB PO SCH (08:03)
[2019-07-20] MEDS: ACYCLOVIR 400 MG TAB PO SCH (08:03)
[2019-07-20] MEDS: MAGNESIUM CHLORIDE 64MG DELAYED REL TAB PO SCH (08:04)
[2019-07-20] MEDS: TRAMADOL HCL 50 MG TABLET PO PRN (08:10)
[2019-07-20] MEDS: ONDANSETRON INJ 2 MG/ML 2 ML VIAL IV PRN (08:10)
[2019-07-20 09:27] LABS: BUN Creatinine Ratio 13.7 (10-20); Calcium 8.8 mg/dl (8.5-10.1); Creatinine Clr Calc Pharmacy 33.1 ml/min; Est GFR (African American) 39.5; Est GFR (Non-African American) 34.1; Potassium 4.3 mmol/L (3.5-5.1)
--- NOTE | 2019-07-20 15:08 | Discharge Summary ---
Date of Service July 20, 2019 Admission HPI Per Admitting Provider Pt is 68 y/o F with PMH multiple myeloma, HTN, dyslipidemia, asthma, nocturnal hypoxia, MOHAN, migraines, depression, anxiety, h/o palpitations, sinus tachycardia presented to ER from cardiology office for hypotension. Pt was being seen at cardiology office for h/o sinus tachycardia and palpitations. It is reported that at her last oncology visit it was noted that her pulse was 120. Pt denies any recent palpations. Today in cardiology office initial BP was 110/82 then 86/50 and pt was referred to ER. Pt states chronic nausea which worsens with eating. Reports chronic abdominal pain, also worse with eating. Denies any increased abdominal pain. She admits has not been eating or drinking much for past couple of months since starting chemo. Reports only had sip juice to take her morning medications today. Pt reports chronic weakness, fatigue and dizziness worse with sitting up or standing. Denies syncope. Uses walker to ambulate and reports chronic SOB with ambulation and chronic leg weakness with ambulation. Denies increased weakness, fatigue, SOB, dizziness or nausea. Denies falls or syncope. She reports chronic intermittent chills for past couple of months. Denies any known fevers. It is reported that pt had hospitalization at [facility] in 03/2019 for BARBRA, hypercalcemia, hypokalemia, anemia thought secondary to chemo. Pt reports received 1 unit PRBCs at that time Pt also reports hospitalization at [facility] on 06/25/19-06/27/19 for dehydration, diarrhea. Pt reports was diagnosed with C-Diff and started on Vancomycin. Pt is unsure if she is still taking Vancomycin. She reports that she was discharged at her request secondary to wanting to be home for [place]. Pt also reports hospitalization at [facility] for dehydration and anemia and reports receiving 2 units PRBCs during that admission. Thinks this was in 05/2019. Pt states diarrhea has decreased and has had 1-2 episodes loose stools a day. Had 1 episode diarrhea yesterday and none yet today. Denies hematochezia. Pt states today noticed right leg seems bigger than left. Reports pain to bilateral calves. Denies increased SOB, CP. Denies diaphoresis, SINHA, vision changes, neck pain, CP, orthopnea, cough, sore throat, choking, otalgia, rhinorrhea, paresthesias, rashes, urinary symptoms. Admission Exam Per Admitting Provider General: chronic ill appearing, appears older than stated age, no acute distress, overweight Head: normocephalic, atraumatic Eyes: PERRL, EOM's intact, conjunctiva non-injected, anicteric ENT: normal inspection external ears, nose, mucous membranes mildly dry Neck: supple, trachea midline Lungs: clear, no respiratory distress, no wheezing/rhonchi/rales CV: RRR, no murmur Abd: normal BS, soft, non-tender Ext: no cyanosis, Right leg edema greater than left leg, no leg erythema, bilateral calf tenderness to palpation Neuro: A&O x 3, no focal deficits noted, normal affect Skin: warm, dry Principal Diagnosis Intramuscular hematoma Hypotension BARBRA (acute kidney injury) Elevated lactic acid level Weakness Palpitaion Hypomagnesemia C. difficile diarrhea Multiple myeloma MOHAN (obstructive sleep apnea) Nocturnal hypoxemia: Discharge Exam General- No acute distress, obese Head- atraumatic Eyes- PERRL, EOMI, ENT- oropharynx clear Neck- supple, no JVD Lungs- diminished BS Heart- regular rhythm; no murmur Abdomen- normal bowel sounds, soft, nontender Extremities- no calf tenderness, +edema Neuro- alert, oriented x 3; PERRL, EOMI; no facial palsy; no dysarthria Skin- warm & dry Discharge Data Allergies Allergy/AdvReac Type Severity Reaction Status Date / Time No Known Allergies Allergy Mild ? Unverified 07/02/19 12:12 Consultations 07/02/19 13:39 ED Decision to Admit Stat 07/02/19 16:42 Consult Case Management - Discharge Planning Routine 07/06/19 07:35 Consult Nephrology Routine Ordered Studies 07/02/19 15:00 US venous doppler LE BI Urgent 07/06/19 07:51 US renal/blad retro comp Routine 07/13/19 11:34 CT abd pelvis wo con Routine 07/16/19 09:20 US venous doppler LE BI Routine XR chest 1V portable CLINICAL HISTORY: SEPSIS dyspnea COMPARISON STUDY: No previous studies for comparison. FINDINGS: The bones soft tissues and hemidiaphragms are normal. The cardio mediastinal silhouette is normal. The lungs are clear. The pulmonary vasculature is normal. IMPRESSION: Negative chest. ACT 112: Negative or not required by law. The above report was generated using voice recognition software. It may contain grammatical, syntax or spelling errors. Electronically signed by: Florentino Breaux M.D. 07/02/2019 11:19 AM Dictated: 07/02/19 1119 Transcribed: 07/02/19 111 BILATERAL LOWER EXTREMITY VENOUS DOPPLER HISTORY: Acute pain and swelling of the bilateral lower extremities edema right >left; Hx multiple myeloma COMPARISON STUDY: None. FINDINGS: There is normal compressibility, flow, and augmentation within the left lower extremity deep venous system. Linear partially occlusive thrombus of the distal right popliteal vein and peroneal veins. No additional deep venous thrombosis of the right lower extremity. IMPRESSION: 1. Partially occlusive deep venous thrombosis of the right popliteal and peroneal veins. 2. No sonographic evidence of left lower extremity deep venous thrombosis. ACT 112: Negative or not required by law. Electronically signed by: Fernie Shipman M.D. 07/02/2019 4:30 PM Dictated: 07/02/19 1629 Transcribed: 07/02/191628 ULTRASOUND KIDNEYS AND BLADDER CLINICAL HISTORY: Acute renal insufficiency. COMPARISON STUDY: No priors. TECHNIQUE: Real-time, grayscale, and color flow sonography of the kidneys and bladder is performed. Images are reviewed in the transverse and longitudinal planes. FINDINGS: Kidneys: The kidneys demonstrate cortical atrophy. The right kidney measures 10.0 cm in length and the left kidney measures 9.7 cm in length. There is no hydronephrosis. No shadowing renal calculi are identified. There is no sonographic evidence of contour deforming renal mass lesion. No perinephric fluid is identified. Bladder: The bladder is largely decompressed and grossly unremarkable. Ureteral jets were not seen. IMPRESSION: 1. The kidneys demonstrate cortical atrophy and are without hydronephrosis. 2. The bladder was decompressed and grossly unremarkable. ACT 112: Negative or not required by law. Electronically signed by: Carlos Chopra M.D. 07/06/2019 9:16 AM Dictated: 07/06/19914 Transcribed: 07/06/19914 XR chest 2V PA/lateral CLINICAL HISTORY: update volume status dyspnea COMPARISON STUDY: 07/02/2019 FINDINGS: The bones soft tissues and hemidiaphragms are normal. The cardiomediastinal silhouette is normal. The lungs are clear. The pulmonary vasculature is normal. IMPRESSION: Negative chest. ACT 112: Negative or not required by law. The above report was generated using voice recognition software. It may contain grammatical, syntax or spelling errors. Electronically signed by: Florentino Breaux M.D. 07/11/2019 3:31 PM Dictated: 07/11/19 1531 Transcribed: 07/11/[address] abd pelvis wo con CT DOSE: 920.91 mGy.cm HISTORY: Pain. Abnormal uterus. R/O Diverticulitis,Uterine pathology with LQ pain TECHNIQUE: Multiaxial CT images of the abdomen and pelvis were performed without contrast. A dose lowering technique was utilized adhering to the principles of ALARA. COMPARISON STUDY: None. FINDINGS: Mild pleural reactive change right lung base. Lung bases are otherwise clear. Liver spleen and pancreas are unremarkable within the limitations of an unenhanced scan. The gallbladder is not well seen and potentially has been removed. Kidneys are considered negative for hydronephrosis. There are findings of moderate body wall anasarca. There is a Tejada catheter within a collapsed bladder. There is no significant abdominal pelvic or inguinal adenopathy. Bladder shows moderate atrophic change unremarkable for age. The left iliopsoas muscle is enlarged compared to the right. Several small necrotic foci are identified best seen on transaxial image 47. The possibility of pathologic enlargement of the left iliopsoas is considered. There is a trace amount of infiltrative change of the fascial planes anterior to the left iliopsoas muscle. Bony structures show evidence for multiple lytic changes throughout the axial and upper pedicular skeleton. This is consistent with that of lytic metastatic disease and/or myelomatous type change. There is no evidence for compression deformity of the low thoracic or lumbar spine. IMPRESSION: 1. Diffuse lytic changes throughout the axial and appendicular skeleton.. 2. Abnormal enlargement of the left iliopsoas as compared to the right suggesting pathologic intramuscular enlargement. 3. Body wall anasarca. 2. This is consistent with that of metastatic generated change versus myelomatous type change. 3. No acute intra-abdominal or intrapelvic pathology. This is within limitations of an unenhanced scan. 4. Body wall anasarca. ACT 112: Negative or not required by law. The above report was generated using voice recognition software. It may contain grammatical, syntax or spelling errors. Electronically signed by: Florentino Breaux M.D. 07/13/2019 12:35 PM Dictated: 07/13/19 1227 Transcribed: 07/13/19 1227 ULTRASOUND BILATERAL LOWER EXTREMITY VENOUS CLINICAL HISTORY: Deep venous thrombosis. COMPARISON STUDY: Bilateral lower extremity venous ultrasound dated 07/02/2019. TECHNIQUE: Real-time, grayscale, and color Doppler sonography of the deep veins of the right and left lower extremity was performed from the inguinal crease to the calf. Compression and augmentation were utilized. FINDINGS: There is no sonographic evidence of deep venous thrombosis identified in the right or left lower extremity. The common femoral, superficial femoral, and popliteal veins are patent and normally compressible bilaterally. The greater saphenous vein and the profunda femoris vein at the junction with the common femoral vein are clear in both legs. The visualized calf veins are patent bilaterally. Soft tissue edema is identified in the left calf. A hypoechoic nonvascular nodule is seen in soft tissues at the indicated site of interest measuring 1.5 x 0.9 x 1.2 cm. IMPRESSION: 1. There is no sonographic evidence of deep venous thrombosis identified in the right or left lower extremity. 2. Soft tissue edema is present within the left calf. 3. There is a 1.5 cm indeterminate hypoechoic nodule within the soft tissues of the medial left calf at the indicated site of interest. ACT 112: Negative or not required by law. Electronically signed by: Carlos Chopra M.D. 07/16/2019 2:40 PM Dictated: 07/16/19 1438 Transcribed: 07/16/19 1438 Hospital Course (1) Intramuscular hematoma: Has been complaining of left lower quadrant pain since this morning Examination revealed localized tenderness CT of the abdomen pelvis without contrast showed left ileo-psoas hematoma Discussed with on-call covering oncologist in [place]: No plan to restart any anticoagulation as of yet with recent development of hematoma. Plan to do repeat ultrasound of the upper extremity Hemoglobin dropped to 7.4 from 7.9, then 6.8 on 07/15/2019 Received 2 units of PRBC Repeat ultrasound of the B/L LE showed no DVTs case discussed with oncologist about anticoagulation and recommended to hold anticoagulant since repeat dopler b/L LE showed no evidence of DVT and pt developed hematoma while started on anticoagulant few days ago. (2) Hypotension: Hypotension likely due to GI loses R/O infectious source other than C diff Negative Orthostatics Blood cultures: 07/05 Coag Negative Staph--Likely contamination Repeat Blood Cx:Negative to date Urine culture growing multiple organisms Repeat Urine Cx:Yeast She received 2 L normal saline in the emergency room Blood pressure has been normal since admission Medication has been restarted BP stable (3) BARBRA (acute kidney injury): Secondary to ischemic ATN from hypotension and or Vanco toxicity Progressive renal impairment could be secondary to multiple myeloma Received intravenous vancomycin due to 1 out of 2 blood culture positive for coagulase-negative staph not lugdunensis She received 1 dose vancomycin IV 1750 mg 1900 on 07/03, then on 07/04 at 1100 12 50 mg iv and 1 dose on 07/05 at 0500 same mg; stat 1800 vanco level 07/06 is 22 (36 hrs after last/3rd dose) Metabolic acidosis secondary to BARBRA Creatinine peaked to 3.7 Renal USD showed the kidneys demonstrate cortical atrophy and are without hydronephrosis. The bladder was decompressed and grossly unremarkable. Avoid Nephrotoxic agents as able Nephrology on board Monitor renal function Creatinine improved to 1.5 today Will continue to avoid nephrotoxic agents case discussed with Nephrology recommended weekly bmp, uacm, prot/creat x 4 wks and f/u in CKD clinic 4-6 wks in [facility] (4) Elevated lactic acid level: Doubt any sepsis lactate levels normalized with IV fluids CXR: no acute findings Stable (5) Possible urinary tract infection: Possible UTI on UA. Urine culture growing multiple organisms. Received Zosyn Repeat urine culture grew Yeast Antibiotics have been discontinued (6) Right leg DVT: Lovenox discontinued due to BARBRA case discussed with die fitter/oncologist Dr. Maldonado for anticoagulation options on 07/05/19 Continue IV Heparin for now until renal function improves Like to start oral anticoagulation soon as kidney function has been improving Heparin has been stopped due to left ileo-psoas hematoma Repeat ultrasound of the lower extremity did not show any evidence of DVT Will not start any anticoagulation Further need for anticoagulation and the choice needs to be discussed with the oncologist case discussed with oncologist about anticoagulation and recommended to hold anticoagulant since repeat dopler b/L LE showed no evidence of DVT and pt developed hematoma while started on anticoagulant few days ago. (7) Weakness: Chronic weakness. Uses rolling walker to ambulate. Plan to sent to [facility] today for rehab, then patient starts to cry and said that she wants to go home Pt gait is unsteady Continue PT/OT eval (8) Palpitations: H/O palpitations and sinus tachycardia Continue metoprolol (9) Hypomagnesemia: Due to GI loses Replete electrolytes as needed (10) C. difficile diarrhea: Reportedly diagnosed with C-diff at [facility] during recent admission 06/25/19 No history of C. difficile in the past as per patient Diarrhea improved Completed the course of Vancomycin (11) Multiple myeloma: H/O Multiple myeloma. Follows with Dr Maldonado oncology [place] Stated last chemo was one month ago recommended to hold Revlimid due to acute infection Needs follow up with Oncology upon discharge Likely has flareup of multiple myeloma-we will need follow-up appointment with her oncologist as an outpatient (12) MOHAN (obstructive sleep apnea): (13) Nocturnal hypoxemia: Noncompliant with CPAP HS Continue oxygen 3L nasal cannula HS (14) Asthma: Stable As of exacerbation Continue home inhalers DVT Px: IV heparin -discontinued due to intramuscular bleeding Code Status Full code Disposition refused to go to [facility] for rehab Total Time Total Time Spent Total Time Spent (In Minutes): 35 minutes Total Time Includes: Examination of the Patient, Discharge Planning, Medication Reconciliation, Communication With Other Providers and Other Discharge Plan Discharge Items Patient Disposition: Transfer Inpatient Rehab Fac Reason For Visit: HYPOTENSION Discharge Diagnosis: Intramuscular hematoma Hypotension BARBRA (acute kidney injury) Elevated lactic acid level Weakness Palpitaion Hypomagnesemia C. difficile diarrhea Multiple myeloma MOHAN (obstructive sleep apnea) Nocturnal hypoxemia: Activity: Resume your previous activity Non-emergency contact: Primary Care Provider Call non-emergency contact if: you have any medication questions and your temperature is above 101 Follow-up/Referrals: Ahmet Herrera [Primary Care Provider] - Diet: Heart Healthy Addtl Attending Provider Instructions: Follow up with your primary care provider once discharge from rehab Follow up with oncology Dr. Maldonado Follow up with nephrology dr. Cardenas in 4 to 6 weeks at the [facility] Continue physical and occupational therapy Fall precaution Check weekly BMP, UAcm, Protein/creatine ration x 4 wks Check CBC in 1 week to monitor hemoglobin Hold aspirin for now, your provider will tell you when to restart it Pending Studies at Discharge: No Stand-Alone Forms: My [facility] Skilled Items Patient informed of condition?: Yes DNR: No Discharge Level of Care: Acute rehab Communicable Disease: No Discharge Prognosis: Stable Lines: None Urinary Catheter: No Medications and DC Order Prescriptions: New nystatin [Nystop] 100,000 unit/gram Powder 1 applic EXT BID Qty: 15 RF: 0 magnesium chloride [Mag 64] 64 mg Tablet,Delayed Release (Dr/Ec) 64 mg PO BID Qty: 30 RF: 0 Continued fluoxetine 40 mg capsule 40 mg PO QAM RF: 0 mirtazapine 15 mg tablet 15 mg PO HS RF: 0 gabapentin 100 mg capsule 100 mg PO TID RF: 0 metoprolol succinate 25 mg tablet extended release 24 hr 12.5 mg PO QAM RF: 0 tramadol 50 mg tablet 50 mg PO Q6H PRN (Reason: Pain) RF: 0 atorvastatin 40 mg tablet 40 mg PO DAILY RF: 0 acyclovir 400 mg tablet 400 mg PO DAILY RF: 0 potassium chloride 20 mEq tablet,ER particles/crystals 20 meq PO BID RF: 0 omeprazole 20 mg capsule,delayed release(DR/EC) 20 mg PO DAILY RF: 0 montelukast 10 mg tablet 10 mg PO HS RF: 0 albuterol sulfate 90 mcg/actuation Hfa Aerosol Inhaler 1 puff INHALATION Q6H PRN (Reason: Shortness Of Breath Or Wheezing) RF: 0 ferrous gluconate 324 mg (38 mg iron) Tablet 324 mg PO DAILY RF: 0 Breo Ellipta 200-25 mcg/dose blister with device 1 inh INHALATION DAILY RF: 0 Discontinued vancomycin 125 mg capsule 125 mg PO QID RF: 0 aspirin 81 mg Tablet,Delayed Release (Dr/Ec) 81 mg PO QAM RF: 0 Discharge Orders: Discharge Order (Routine); Ordered 07/20/19 Ordered By: Dilshad Hicks Admission Data Admit Date/Time: 07/02/19 15:00 Attending Provider: Dilshad Hicks Admit Provider: Polo Fitzgerald Primary Care Provider: Ahmet Herrera Other Providers: Polo Fitzgerald ; [facility] ; Juana Cardenas ; Mansoor Santigao ; Monisha Emerson Other Interventions: Discharge Summary Assessment (RN) Last Done: 07/20/19 14:55
--- NOTE | 2019-07-20 15:16 | Hospitalist Progress Note ---
Date of Service July 20, 2019 Assessment & Plan (1) Intramuscular hematoma: Has been complaining of left lower quadrant pain since this morning Examination revealed localized tenderness CT of the abdomen pelvis without contrast showed left ileo-psoas hematoma Discussed with on-call covering oncologist in [place]: No plan to restart any anticoagulation as of yet with recent development of hematoma. Plan to do repeat ultrasound of the upper extremity Hemoglobin dropped to 7.4 from 7.9, then 6.8 on 07/15/2019 Received 2 units of PRBC during hospital course Hgb 9.1 today Repeat ultrasound of the B/L LE showed no DVTs case discussed with oncologist about anticoagulation and recommended to hold anticoagulant since repeat dopler b/L LE showed no evidence of DVT and pt developed hematoma while started on anticoagulant few days ago. (2) Hypotension: Hypotension likely due to GI loses R/O infectious source other than C diff Negative Orthostatics Blood cultures: 07/05 Coag Negative Staph--Likely contamination Repeat Blood Cx:Negative to date Urine culture growing multiple organisms Repeat Urine Cx:Yeast She received 2 L normal saline in the emergency room Blood pressure has been normal since admission Medication has been restarted BP stable (3) BARBRA (acute kidney injury): Secondary to ischemic ATN from hypotension and or Vanco toxicity Progressive renal impairment could be secondary to multiple myeloma Received intravenous vancomycin due to 1 out of 2 blood culture positive for coagulase-negative staph not lugdunensis She received 1 dose vancomycin IV 1750 mg 1900 on 07/03, then on 07/04 at 1100 1250 mg iv and 1 dose on 07/05 at 0500 same mg; stat 1800 vanco level 07/06 is 22 (36 hrs after last/3rd dose) Metabolic acidosis secondary to BARBRA Creatinine peaked to 3.7 Renal USD showed the kidneys demonstrate cortical atrophy and are without hydronephrosis. The bladder was decompressed and grossly unremarkable. Avoid Nephrotoxic agents as able Nephrology on board Monitor renal function Creatinine improved to 1.5 today Will continue to avoid nephrotoxic agents case discussed with Nephrology recommended weekly bmp, uacm, prot/creat x 4 wks and f/u in CKD clinic 4-6 wks in [facility] (4) Elevated lactic acid level: Doubt any sepsis lactate levels normalized with IV fluids CXR: no acute findings Stable (5) Possible urinary tract infection: Possible UTI on UA. Urine culture growing multiple organisms. Received Zosyn Repeat urine culture grew Yeast Antibiotics have been discontinued (6) Right leg DVT: Lovenox discontinued due to BARBRA case discussed with auxiliary operator/oncologist Dr. Maldonado for anticoagulation options on 07/05/19 Continue IV Heparin for now until renal function improves Like to start oral anticoagulation soon as kidney function has been improving Heparin has been stopped due to left ileo-psoas hematoma Repeat ultrasound of the lower extremity did not show any evidence of DVT Will not start any anticoagulation Further need for anticoagulation and the choice needs to be discussed with the oncologist case discussed with oncologist about anticoagulation and recommended to hold anticoagulant since repeat dopler b/L LE showed no evidence of DVT and pt developed hematoma while started on anticoagulant few days ago. (7) Weakness: Chronic weakness. Uses rolling walker to ambulate. Plan to sent to [facility] today for rehab, then patient starts to cry and said that she wants to go home Pt gait is unsteady Continue PT/OT eval (8) Palpitations: H/O palpitations and sinus tachycardia Continue metoprolol (9) Hypomagnesemia: Due to GI loses Replete electrolytes as needed (10) C. difficile diarrhea: Reportedly diagnosed with C-diff at [facility] during recent admission 06/25/19 No history of C. difficile in the past as per patient Diarrhea improved Completed the course of Vancomycin (11) Multiple myeloma: H/O Multiple myeloma. Follows with Dr Maldonado oncology [place] Stated last chemo was one month ago recommended to hold Revlimid due to acute infection Needs follow up with Oncology upon discharge Likely has flareup of multiple myeloma-we will need follow-up appointment with her oncologist as an outpatient (12) MOHAN (obstructive sleep apnea): (13) Nocturnal hypoxemia: Noncompliant with CPAP HS Continue oxygen 3L nasal cannula HS (14) Asthma: Stable As of exacerbation Continue home inhalers DVT Px: IV heparin -discontinued due to intramuscular bleeding Code Status Full code Disposition Discharge to [facility] Subjective Pt was seen and examined Sitting in chair with no distress She agreed to go to rehab today denies any chest pain, palpitation and SOB Physical Exam Physical Exam: General- No acute distress, obese Head- atraumatic Eyes- PERRL, EOMI, ENT- oropharynx clear Neck- supple, no JVD Lungs- diminished BS Heart- regular rhythm; no murmur Abdomen- normal bowel sounds, soft, nontender Extremities- no calf tenderness, +edema Neuro- alert, oriented x 3; PERRL, EOMI; no facial palsy; no dysarthria Skin- warm & dry Results & Data Vital Signs (Past 12 Hours) Vital Signs Temp Pulse Resp BP BP Pulse Ox 07/20/19 14:55 37 C 89 20 116/71 124/69 96 07/20/19 11:38 37 C 89 20 116/71 96 07/20/19 08:11 36.5 C 69 20 124/69 96 07/20/19 04:00 36.6 C 91 H 18 128/77 97
== END 2019-07-20 15:30 | DRG 683 ==
LOC: ED 10:44 → 1E 15:00 → SUATTDRO 15:00 → 1E 15:31 → 2S 07-03 14:18

== ENCOUNTER 2019-08-03 11:19 | Observation (INO) ==
[2019-08-03] MEDS ORDERED: ONDANSETRON INJ 2 MG/ML 2 ML VIAL IV STA (12:01)
[2019-08-03] MEDS ORDERED: SODIUM CHLORIDE 0.9% 1000ML 1,000 ML IV SCH (12:15)
[2019-08-03 12:39] LABS: Basophils # (auto) 0.03 K/uL (0-0.2); Basophils % (auto) 0.5 %; Eosinophils # (auto) 0.03 K/uL (0-0.5); Eosinophils % (auto) 0.5 %; Hematocrit (blood only) 35.5 % (37-47); Hemoglobin 11.5 g/dL (12.0-16.0); Immature Granulocytes # (auto) 0.01 K/uL (0.00-0.02); Immature Granulocytes % (auto) 0.2 %; Lymphocytes # (auto) 0.81 K/uL (1.2-3.4); Lymphocytes % (auto) 14.5 %; Mean Corpuscular Hemoglobin 28.3 pg (25-34); Mean Corpuscular Hgb Conc 32.4 g/dL (32-36); Mean Corpuscular Volume 87.2 fL (80-100); Mean Platelet Volume 10.2 fL (7.4-10.4); Monocytes # (auto) 0.45 K/uL (0.11-0.59); Monocytes % (auto) 8.1 %; Neutrophils # (auto) 4.24 K/uL (1.4-6.5); Neutrophils % (auto) 76.2 %; Platelet Count 215 K/uL (130-400); RDW Coefficient of Variation 15.9 % (11.5-14.5); Red Blood Count 4.07 M/uL (4.2-5.4); White Blood Count 5.57 K/uL (4.8-10.8)
--- NOTE | 2019-08-03 12:46 | XRay Report ---
XR chest 1V portable CLINICAL HISTORY: cough COMPARISON STUDY: Chest radiograph August 02, 2019 FINDINGS: Lung volumes are mildly diminished. There is no pneumothorax or pleural effusion. There is no consolidation to suggest pneumonia. Cardiac size is normal. Mediastinal contours are unremarkable. Lytic lesions within visualized skeletal structures are noted. IMPRESSION: 1. No acute cardiopulmonary findings. Low lung volumes. 2. Lytic skeletal lesions which suggest multiple myeloma or metastatic disease. ACT 112: Negative or not required by law. Electronically signed by: Foreign Reed M.D. 08/03/2019 12:45 PM
[2019-08-03 12:51] LABS: INR 1.2 (0.9-1.1); Prothrombin Time 11.9 Seconds (9.0-12.0)
[2019-08-03 12:56] LABS: Alanine Aminotransferase 21 U/L (12-78); Aspartate Aminotransferase 21 U/L (15-37); BUN Creatinine Ratio 13.5 (10-20); Blood Urea Nitrogen 12 mg/dl (7-18); Calcium 8.9 mg/dl (8.5-10.1); Carbon Dioxide 23 mmol/L (21-32); Chloride 113 mmol/L (98-107); Est GFR (African American) 74.6; Est GFR (Non-African American) 64.4; Glucose 90 mg/dl (70-99); Lipase 74 U/L (73-393); Magnesium 1.6 mg/dl (1.8-2.4); Potassium 3.4 mmol/L (3.5-5.1); Sodium 144 mmol/L (136-145)
[2019-08-03 13:00] LABS: Albumin Globulin Ratio 0.9 (0.9-2); Alkaline Phosphatase 135 U/L (45-117); Bilirubin,Total 0.5 mg/dl (0.2-1); Globulin 3.3 gm/dl (2.5-4.0); Total Protein 6.3 gm/dl (6.4-8.2); Troponin I < 0.015 ng/ml (0-0.045)
[2019-08-03] MEDS ORDERED: MAGNESIUM SULFATE / D5W 1 GM/100 ML BAG IV ONE (13:40)
[2019-08-03] MEDS ORDERED: METOCLOPRAMIDE HCL INJ 5 MG/ML 2 ML VIAL IV ONE (13:40)
[2019-08-03 14:01] LABS: Influenza A virus by PCR Neg for Influ A (Neg); Influenza B virus by PCR Neg for Influ B (Neg)
[2019-08-03] MEDS ORDERED: PROMETHAZINE HCL 12.5 MG in SODIUM CHLORIDE 0.9% 50 ML IV PRN (14:43)
--- NOTE | 2019-08-03 14:43 | History & Physical Report ---
Date of Service August 03, 2019 Assessment & Plan (1) Gastroenteritis: Has been complaining of nausea, vomiting and diarrhea for the last 1 week Likely has gastroenteritis but no other family members is affected This is the third ER visit in 1 week Will admit to medical floor Intravenous fluid and symptomatic management of nausea and vomiting We will send stool for culture and sensitivity (2) Intractable nausea and vomiting: Likely secondary to gastroenteritis (3) Diarrhea: History of C. difficile colitis that was treated recently stool was negative for C. difficile We will send stool for culture and sensitivity (4) Multiple myeloma: Multiple myeloma with bony metastasis Has been under care of oncologist at [place] Getting acyclovir for suppressive treatment (5) MOHAN (obstructive sleep apnea): Can have her own CPAP machine at night (6) HTN (hypertension): Seems to be controlled (7) Depression with anxiety: Continue current medication (8) Electrolyte imbalance: Will supplement electrolytes as needed Hold the potassium pill as it can increase nausea and vomiting We will monitor History of right leg DVT Heparin started but discontinued due to development of hematoma The case was discussed with oncologist Was advised to hold off any anticoagulation for now Fortunately the repeat ultrasound did not show any clot in the right leg DVT prophylaxis Will not give any pharmacologic anticoagulation due to history of recent psoas muscle hematoma following heparin administration SCDs for now CODE STATUS History of Present Illness Chief Complaint: Nausea, vomiting with diarrhea for the last 7 days Primary Care Provider: Ahmet Herrera She is a 68-year-old female with significant past medical history of multiple myeloma on chemotherapy, MOHAN, hypertension, anemia of chronic disease, depression with anxiety, asthma, migraine and hyperlipidemia has been complaining of nausea, vomiting with diarrhea for the last 7 days. This is her second visit to the emergency room in 2 days and she has had been to ER at [place] for the same reason. She complains to have abdominal discomfort but no definite pain and her main symptoms being nausea she vomited once yesterday and she has been having diarrhea with loose stools 2 times today. She cannot keep anything down due to ongoing nausea and getting dehydrated with dizziness on ambulation. Denies any fever and chills, any cough and or phlegm, any problem with her u rine. She was noted to be mildly hypokalemic in the emergency room and her CT scan of the abdomen and pelvis that was done yesterday was fairly unremarkable. Given the ongoing symptoms for the last 1 week she need to stay in the hospital for rehydration and symptomatic management and rule out any significant causes for that. Allergies Allergy/AdvReac Type Severity Reaction Status Date / Time No Known Allergies Allergy Mild ? Unverified 08/03/19 13:15 Home Medications Home Medications Medication Instructions Recorded Confirmed Type Clint Ellipta 1 inh INHALATION QAM 07/02/19 08/03/19 History acyclovir 400 mg PO QAM 07/02/19 08/03/19 History albuterol sulfate 1 puff INHALATION Q6H PRN 07/02/19 08/03/19 History atorvastatin 40 mg PO QAM 07/02/19 08/03/19 History ferrous gluconate 324 mg PO QAM 07/02/19 08/03/19 History fluoxetine 40 mg PO QAM 07/02/19 08/03/19 History gabapentin 100 mg PO TID 07/02/19 08/03/19 History metoprolol succinate 12.5 mg PO QAM 07/02/19 08/03/19 History mirtazapine 15 mg PO HS 07/02/19 08/03/19 History montelukast 10 mg PO HS 07/02/19 08/03/19 History omeprazole 20 mg PO QAM 07/02/19 08/03/19 History potassium chloride 20 meq PO BID 07/02/19 08/03/19 History tramadol 50 mg PO Q6H PRN 07/02/19 08/03/19 History magnesium chloride [Mag 64] 64 mg PO BID #30 tab 07/20/19 08/03/19 Rx nystatin [Nystop] 1 applic EXT BID #15 gm 07/20/19 08/03/19 Rx promethazine 25 mg PO Q6H PRN #10 tab 08/02/19 08/03/19 Rx Past Med/Surg History Medical History Anemia Asthma Depression with anxiety Dyslipidemia Encounter for blood transfusion HTN (hypertension) Migraine Multiple myeloma Nocturnal hypoxemia MOHAN (obstructive sleep apnea) Palpitations Sinus tachycardia Tachycardia Surgical History H/O cataract removal with insertion of prosthetic lens S/P cholecystectomy S/P tubal ligation Family History Other Cancer Hypertension Social History Preferred Language: [place] Communication Ability: Effective Roll Up Guider Operator Required: No Beliefs That Will Affect Care: None Current Living Situation: Spouse current occupational status: retired Feels Safe at Home: Yes Smoking Status: Former smoker Hx Alcohol Use: No Hx Substance Use: No Review of Systems Review of Systems: All systems reviewed & are unremarkable except as noted in HPI & below Gastrointestinal: + abdominal pain, + bloating, + nausea and + vomiting Physical Exam Physical Exam: Lying in bed with mild discomfort secondary to abdominal discomfort and nausea Constitutional: well developed, well nourished, + acute distress (Abdominal discomfort with nausea), + ill appearing and + obese Eyes: PERRL, conjunctivae normal, anicteric sclerae ENMT: external ear and nose normal, oropharynx normal Neck: trachea midline, no thyromegaly Respiratory: normal respiratory effort Auscultation: lungs clear to auscultation bilaterally and + diminished lung sounds Cardiovascular: Rate/Rhythm: regular rate and regular rhythm Heart Sounds: no murmur Gastrointestinal (Abdomen): Inspection/Auscultation: abdomen normal to inspection and normal bowel sounds Musculoskeletal: No acute arthritis involving any joints Lymphatic: no cervical or axillary lymphadenopathy Results & Data Vital Signs (Past 12 Hours) Vital Signs Pulse Resp BP Pulse Ox 08/03/19 13:30 105 H 19 133/76 96 08/03/19 13:19 97 08/03/19 13:15 109 H 19 131/81 97 08/03/19 13:00 106 H 22 133/85 97 08/03/19 12:45 109 H 30 H 114/69 99 08/03/19 12:30 108 H 22 127/69 97 08/03/19 12:21 107 H 25 H 98 08/03/19 12:15 106 H 13 104/67 98 Laboratory Results Short CBC 08/03/19 Range/Units 12:20 WBC 5.57 (4.8-10.8) K/uL Hgb 11.5 L (12.0-16.0) g/dL Hct 35.5 L (37-47) % Plt Count 215 (130-400) K/uL BMP 08/03/19 12:20 Sodium 144 Potassium 3.4 L Chloride 113 H Carbon Dioxide 23 BUN 12 Creatinine 0.91 Glucose 90 Calcium 8.9 Cardiac Enzymes 08/03/19 Range/Units 12:20 Troponin I < 0.015 (0-0.045) ng/ml Liver Function 08/03/19 Range/Units 12:20 Total Bilirubin 0.5 (0.2-1) mg/dl AST 21 (15-37) U/L ALT 21 (12-78) U/L Alkaline Phosphatase 135 H (45-117) U/L Albumin 3.0 L (3.4-5.0) gm/dl Medications Administered Current Inpatient Medications Magnesium Sulfate/Dextrose (Magnesium Sulfate / D5w) 1 gm in 100 mls @ 100 mls/hr IV ONE ONE Stop: 08/03/19 14:39 Last Admin: 08/03/19 13:55 Dose: 100 mls/hr Documented by: Code Status & VTE Plan VTE Prophylaxis Plan VTE Prophylaxis will be ordered: Yes (1) Diarrhea Diarrhea type: unspecified type Qualified Code(s): R19.7 - Diarrhea, unspecified
[2019-08-03] MEDS ORDERED: ALBUTEROL HFA 8 GM INHALER INH PRN (17:11)
--- NOTE | 2019-08-03 17:27 | Electrocardiogram Report ---
Test Reason : Blood Pressure : / mmHG Vent. Rate : 104 BPM Atrial Rate : 104 BPM P-R Int : 158 ms QRS Dur : 076 ms QT Int : 356 ms P-R-T Axes : -05 009 049 degrees QTc Int : 468 ms Poor data quality, interpretation may be adversely affected Sinus tachycardia Nonspecific T wave abnormality Abnormal ECG When compared with ECG of 02-AUG-2019 08:48, Nonspecific T wave abnormality now evident in Anterolateral leads Confirmed by Kevon Hoskins ([id number]) on 08/03/2019 5:27:20 PM Referred By: REFERRED SELF Confirmed By:Lionel Hoskins
[2019-08-03] MEDS: NSS + 20MEQ KCL 20 MEQ/1,000 ML BAG IV SCH (18:12)
[2019-08-03] MEDS: PANTOprazole 40 MG TAB PO SCH (18:13)
[2019-08-03] MEDS: ONDANSETRON INJ 2 MG/ML 2 ML VIAL IV PRN (18:16)
--- NOTE | 2019-08-03 19:35 | Emergency Department Note ---
Entered by Any Comer acting as a scribe for Celso Perez M.D. History of Present Illness General Chief complaint: Nausea Time Seen by Provider: 08/03/19 11:52 Source: patient History of Present Illness Provider complaint: nausea Onset (ago): day(s) 1 Location: abdomen Severity: similar to prior episodes Pain Consistency: + other (+persistent ) Relieved By: not by medication Associated symptoms: + fever/chills (-fever, chills) and + other (+abdominal pain, +runny nose, +muscle aches, +diarrhea); no cough The patient is a 68 year old female who presents to the Emergency Room with complaints of persistent nausea. The patient notes that she was here yesterday for was discharged with nausea medication. She notes that the medication did not alleviate her symptoms. She reports that she has diarrhea which started today. She denies any vomiting. The patient reports that she is experiencing mild abdominal pain. She states that she has chills, but denies any fever. She mentions that she has a runny nose and muscle aches. She denies any cough. Home Medications Home Medications Medication Instructions Recorded Confirmed Type Breo Ellipta 1 inh INHALATION QAM 07/02/19 08/03/19 History acyclovir 400 mg PO QAM 07/02/19 08/03/19 History albuterol sulfate 1 puff INHALATION Q6H PRN 07/02/19 08/03/19 History atorvastatin 40 mg PO QAM 07/02/19 08/03/19 History ferrous gluconate 324 mg PO QAM 07/02/19 08/03/19 History fluoxetine 40 mg PO QAM 07/02/19 08/03/19 History gabapentin 100 mg PO TID 07/02/19 08/03/19 History metoprolol succinate 12.5 mg PO QAM 07/02/19 08/03/19 History mirtazapine 15 mg PO HS 07/02/19 08/03/19 History montelukast 10 mg PO HS 07/02/19 08/03/19 History omeprazole 20 mg PO QAM 07/02/19 08/03/19 History potassium chloride 20 meq PO BID 07/02/19 08/03/19 History tramadol 50 mg PO Q6H PRN 07/02/19 08/03/19 History magnesium chloride [Mag 64] 64 mg PO BID #30 tab 07/20/19 08/03/19 Rx nystatin [Nystop] 1 applic EXT BID #15 gm 07/20/19 08/03/19 Rx promethazine 25 mg PO Q6H PRN #10 tab 08/02/19 08/03/19 Rx Allergies Allergy/AdvReac Type Severity Reaction Status Date / Time No Known Allergies Allergy Mild ? 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 and A total of 10 systems reviewed and were otherwise negative Physical Exam Vital Signs Vital Signs - 24 hr 08/03/19 11:06 08/03/19 12:15 08/03/19 12:21 Temperature 37.3 C Temperature Source Rectal Pulse Rate 110 H 106 H 107 H Pulse Rate from SpO2 Sensor 107 H 107 H Pulse Rhythm Regular Pulse Strength Normal Respiratory Rate 22 13 25 H Respiratory Effort / Characteristics Non-Labored Spontaneous Respiratory Depth Normal Respiratory Pattern Regular Blood Pressure 127/86 104/67 Blood Pressure Mean 99 78 Blood Pressure Position Lying Pulse Oximetry 98 98 98 Oxygen Delivery Method Room Air Room Air Room Air Sepsis Recent Fever Within 48 Hours Yes Sepsis New/Unexplained Change in Mental Status No Sepsis Action Taken by Nursing No Action Required 08/03/19 12:30 08/03/19 12:45 08/03/19 13:00 Temperature Temperature Source Pulse Rate 108 H 109 H 106 H Pulse Rate from SpO2 Sensor 107 H 109 H 107 H Pulse Rhythm Pulse Strength Respiratory Rate 22 30 H 22 Respiratory Effort / Characteristics Respiratory Depth Respiratory Pattern Blood Pressure 127/69 114/69 133/85 Blood Pressure Mean 100 89 92 Blood Pressure Position Pulse Oximetry 97 99 97 Oxygen Delivery Method Room Air Room Air Room Air Sepsis Recent Fever Within 48 Hours Sepsis New/Unexplained Change in Mental Status Sepsis Action Taken by Nursing 08/03/19 13:15 08/03/19 13:19 08/03/19 13:30 Temperature Temperature Source Pulse Rate 109 H 105 H Pulse Rate from SpO2 Sensor 110 H 105 H Pulse Rhythm Pulse Strength Respiratory Rate 19 19 Respiratory Effort / Characteristics Respiratory Depth Respiratory Pattern Blood Pressure 131/81 133/76 Blood Pressure Mean 95 91 Blood Pressure Position Pulse Oximetry 97 97 96 Oxygen Delivery Method Room Air Room Air Room Air Sepsis Recent Fever Within 48 Hours Sepsis New/Unexplained Change in Mental Status Sepsis Action Taken by Nursing 08/03/19 13:45 08/03/19 14:00 Temperature Temperature Source Pulse Rate 104 H 104 H Pulse Rate from SpO2 Sensor 104 H 102 H Pulse Rhythm Pulse Strength Respiratory Rate 20 16 Respiratory Effort / Characteristics Respiratory Depth Respiratory Pattern Blood Pressure 119/84 119/77 Blood Pressure Mean 93 89 Blood Pressure Position Pulse Oximetry 98 94 Oxygen Delivery Method Sepsis Recent Fever Within 48 Hours Sepsis New/Unexplained Change in Mental Status Sepsis Action Taken by Nursing GENERAL: Awake, alert, weak appearing, in no distress, dry lips HENT: Normocephalic, atraumatic. EYES: Normal conjunctiva. Sclera non-icteric. RESPIRATORY: Clear to auscultation. No wheezes. Normal respiratory effort. CARDIAC: Tachycardic rate. Normal rhythm. Extremities warm and well perfused. GI: Soft, non-distended. Generalized tenderness to palpation. RECTAL: Deferred. MUSCULOSKELETAL: Atraumatic. Chest examination reveals no tenderness. LOWER EXTREMITIES: Calves are equal size bilaterally and non-tender. NEURO: Normal sensorium. No sensory or motor deficits noted. No facial droop. SKIN: Warm and dry. No jaundice noted. Erythema and skin breakdown in perianal region. Course Course 1159: The patient was evaluated in room [facility], and a complete history and physical examination were performed. 1345: I reevaluated the patient and updated her on her results. She is still nauseous. 1358: I reviewed the patient's case with Dr. Zavala [facility] Hospitalist. He will evaluate the patient for further management. Administered Medications Potassium Chloride/Sodium Chloride (Normal Saline W/20 Meq Kcl) 20 meq in 1,000 mls @ 100 mls/hr IV .Q10H ОЛЕГ Stop: 08/04/19 23:29 Last Admin: 08/03/19 18:12 Dose: 100 mls/hr Documented by: [id number] Ondansetron HCl (Zofran) 4 mg IV Q6H PRN PRN Reason: Nausea And Vomiting Stop: 09/02/19 14:44 Last Admin: 08/03/19 18:16 Dose: 4 mg Documented by: [id number] Pantoprazole Sodium (Protonix) 40 mg PO QAM ОЛЕГ Stop: 09/02/19 17:10 Last Admin: 08/03/19 18:13 Dose: 40 mg Documented by: [id number] Discontinued Medications Sodium Chloride (Nss 1000ml) 1,000 mls @ 999 mls/hr IV .Q1H1M ОЛЕГ Stop: 08/03/19 13:15 Last Infusion: 08/03/19 17:14 Dose: 999 mls/hr Documented by: [id number] Admin: 08/03/19 13:19 Dose: 999 mls/hr Documented by: [id number] Magnesium Sulfate/Dextrose (Magnesium Sulfate / D5w) 1 gm in 100 mls @ 100 mls/hr IV ONE ONE Stop: 08/03/19 14:39 Last Infusion: 08/03/19 17:14 Dose: 100 mls/hr Documented by: [id number] Admin: 08/03/19 13:55 Dose: 100 mls/hr Documented by: [id number] Metoclopramide HCl (Reglan) 5 mg IV ONE ONE Stop: 08/03/19 13:41 Last Admin: 08/03/19 13:55 Dose: 5 mg Documented by: [id number] Ondansetron HCl (Zofran) 4 mg IV NOW STA Stop: 08/03/19 12:02 Last Admin: 08/03/19 13:19 Dose: 4 mg Documented by: [id number] Medical Decision Making Differential Diagnosis Differential diagnosis: Etiologies such as gastroenteritis, food borne illness, infections, appendicitis, diverticulitis, inflammatory bowel disease, obstruction, diarrhea, GI bleed, biliary pathology, as well as others were entertained. Medical Records Attestation: I reviewed the patient's medical records. Home Medications Current Medication List: was personally reviewed by me Laboratory Data Attestation: I reviewed the patient's lab results. Result diagrams: 08/03/19 12:20 08/03/19 12:20 Lab Results 08/03/19 08/03/19 08/03/19 Range/Units 11:30 12:20 12:20 WBC 5.57 (4.8-10.8) K/uL RBC 4.07 L (4.2-5.4) M/uL Hgb 11.5 L (12.0-16.0) g/dL Hct 35.5 L (37-47) % MCV 87.2 (80-100) fL MCH 28.3 (25-34) pg MCHC 32.4 (32-36) g/dL RDW Std Deviation 51.0 H (36.4-46.3) fL RDW Coeff of Alejandro 15.9 H (11.5-14.5) % Plt Count 215 (130-400) K/uL MPV 10.2 (7.4-10.4) fL Immature Gran % (Auto) 0.2 % Neut % (Auto) 76.2 % Lymph % (Auto) 14.5 % Posey % (Auto) 8.1 % Eos % (Auto) 0.5 % Baso % (Auto) 0.5 % Immature Gran # (Auto) 0.01 (0.00-0.02) K/uL Neut # (Auto) 4.24 (1.4-6.5) K/uL Lymph # (Auto) 0.81 L (1.2-3.4) K/uL Posey # (Auto) 0.45 (0.11-0.59) K/uL Eos # (Auto) 0.03 (0-0.5) K/uL Baso # (Auto) 0.03 (0-0.2) K/uL PT 11.9 (9.0-12.0) Seconds INR 1.2 H (0.9-1.1) Sodium (136-145) mmol/L Potassium (3.5-5.1) mmol/L Chloride (98-107) mmol/L Carbon Dioxide (21-32) mmol/L Anion Gap (3-11) BUN (7-18) mg/dl Creatinine (0.6-1.2) mg/dl Est Cr Clr Drug Dosing Est GFR ( Amer) Est GFR (Non-Af Amer) BUN/Creatinine Ratio (10-20) Glucose (70-99) mg/dl Lactate (0.4-2.0) mmol/L Calcium (8.5-10.1) mg/dl Magnesium (1.8-2.4) mg/dl Total Bilirubin (0.2-1) mg/dl AST (15-37) U/L ALT (12-78) U/L Alkaline Phosphatase (45-117) U/L Troponin I (0-0.045) ng/ml Total Protein (6.4-8.2) gm/dl Albumin (3.4-5.0) gm/dl Globulin (2.5-4.0) gm/dl Albumin/Globulin Ratio (0.9-2) Lipase (73-393) U/L Specimen Hemolysis Stl C. diff Tox B Gene Negative Cdiff Gene (Neg) Influenza Type A (PCR) (Neg) Influenza Type B (PCR) (Neg) 08/03/19 08/03/19 08/03/19 Range/Units 12:20 12:20 13:19 WBC (4.8-10.8) K/uL RBC (4.2-5.4) M/uL Hgb (12.0-16.0) g/dL Hct (37-47) % MCV (80-100) fL MCH (25-34) pg MCHC (32-36) g/dL RDW Std Deviation (36.4-46.3) fL RDW Coeff of Alejandro (11.5-14.5) % Plt Count (130-400) K/uL MPV (7.4-10.4) fL Immature Gran % (Auto) % Neut % (Auto) % Lymph % (Auto) % Posey % (Auto) % Eos % (Auto) % Baso % (Auto) % Immature Gran # (Auto) (0.00-0.02) K/uL Neut # (Auto) (1.4-6.5) K/uL Lymph # (Auto) (1.2-3.4) K/uL Posey # (Auto) (0.11-0.59) K/uL Eos # (Auto) (0-0.5) K/uL Baso # (Auto) (0-0.2) K/uL PT (9.0-12.0) Seconds INR (0.9-1.1) Sodium 144 (136-145) mmol/L Potassium 3.4 L (3.5-5.1) mmol/L Chloride 113 H (98-107) mmol/L Carbon Dioxide 23 (21-32) mmol/L Anion Gap 8.0 (3-11) BUN 12 (7-18) mg/dl Creatinine 0.91 (0.6-1.2) mg/dl Est Cr Clr Drug Dosing Not Reportable Est GFR ( Amer) 74.6 Est GFR (Non-Af Amer) 64.4 BUN/Creatinine Ratio 13.5 (10-20) Glucose 90 (70-99) mg/dl Lactate 1.3 (0.4-2.0) mmol/L Calcium 8.9 (8.5-10.1) mg/dl Magnesium 1.6 L (1.8-2.4) mg/dl Total Bilirubin 0.5 (0.2-1) mg/dl AST 21 (15-37) U/L ALT 21 (12-78) U/L Alkaline Phosphatase 135 H (45-117) U/L Troponin I < 0.015 (0-0.045) ng/ml Total Protein 6.3 L (6.4-8.2) gm/dl Albumin 3.0 L (3.4-5.0) gm/dl Globulin 3.3 (2.5-4.0) gm/dl Albumin/Globulin Ratio 0.9 (0.9-2) Lipase 74 (73-393) U/L Specimen Hemolysis Stl C. diff Tox B Gene (Neg) Influenza Type A (PCR) Neg for Influ A (Neg) Influenza Type B (PCR) Neg for Influ B (Neg) Imaging Data Radiologist's Impression: Radiology results as stated below per my review and t he radiologist's interpretation: XR chest 1V portable CLINICAL HISTORY: cough COMPARISON STUDY: Chest radiograph August 02, 2019 FINDINGS: Lung volumes are mildly diminished. There is no pneumothorax or pleural effusion. There is no consolidation to suggest pneumonia. Cardiac size is normal. Mediastinal contours are unremarkable. Lytic lesions within visualized skeletal structures are noted. IMPRESSION: 1. No acute cardiopulmonary findings. Low lung volumes. 2. Lytic skeletal lesions which suggest multiple myeloma or metastatic disease. ACT 112: Negative or not required by law. Electronically signed by: Foreign Reed M.D. 08/03/2019 12:45 PM ECG Data Attestation: I personally reviewed and interpreted this ECG as follows: Indication: + vomiting Rate (beats per minute): 104 Rhythm: + sinus tachycardia ECG Intervals/blocks: + Normal QRS ECG ST segments: no ST depression and no ST elevation ECG Findings: no PVCs Blood Pressure Blood Pressure Findings: Elevated blood pressure Blood Pressure Disposition: did not require urgent referral MDM Narrative Patient is a 68-year-old female with a past medical history including anemia, DVT, migraine, multiple myeloma seen here yesterday for nausea presenting via EMS today with a complaint of continued nausea and weakness. Does endorse a slight cough and some sinus congestion. Developed diarrhea overnight with significant output and there is area of erythema and skin breakdown on her buttocks and anal region. Concern given history that this could represent recurrence of C. difficile colitis. Minimal abdominal tenderness is appreciated had a CT scan yesterday. And up will be needed repeat. Stool studies were ordered. Basic labs are ordered. Given 1+ blood culture yesterday while this could be contamination repeat lactate and cultures were ordered today. Chest x- ray completed as well as EKG and basic labs. Basic labs with some mild hyponatremia. Patient still symptomatic with nausea. Given this given small amount of additional Reglan here. Magnesium supplementation ordered. Stool sample likely negative for C. difficile. Does not appear septic at this point began weak appearing and not tolerating oral and still symptomatic. Discussed with the hospitalist for further symptom control. Impression & Plan Intractable nausea and vomiting, Hypomagnesemia, Diarrhea Discharge Plan Visit Data *Final* Discharge Date/Time: 08/03/19 16:53 Chief Complaint: Nausea ED Provider: Celso Perez Discharge Problem: Intractable nausea and vomiting, Hypomagnesemia, Diarrhea Patient Disposition: Admitted As Inpatient Discharge Instructions Interventions: ED Discharge Assessment Last Done: 08/03/19 16:53 Discharge Problem: Diarrhea Qualifiers: Diarrhea type: unspecified type Qualified Code(s): R19.7 - Diarrhea, unspecified The scribe's documentation has been prepared under my direction and personally reviewed by me in its entirety. I confirm that the note above accurately reflects all work, treatment, procedures, and medical decision making performed by me.
[2019-08-03] MEDS: MAGNESIUM CHLORIDE 64MG DELAYED REL TAB PO SCH (20:05)
[2019-08-03] MEDS: MONTELUKAST SODIUM 10 MG TABLET PO SCH (20:05)
[2019-08-03] MEDS: GABAPENTIN 100 MG CAP PO SCH (20:06)
[2019-08-03] MEDS: MIRTAZAPINE TAB 15 MG TAB PO SCH (20:06)
[2019-08-03] MEDS: NYSTATIN POWDER 15GM BTL EXT SCH (20:06)
[2019-08-03] MEDS: TRAMADOL HCL 50 MG TABLET PO PRN (20:08)
[2019-08-04] MEDS: NSS + 20MEQ KCL 20 MEQ/1,000 ML BAG IV SCH ×2 (03:28→13:20)
[2019-08-04] MEDS: TRAMADOL HCL 50 MG TABLET PO PRN ×3 (03:44→20:01)
[2019-08-04 06:19] LABS: Basophils # (auto) 0.03 K/uL (0-0.2); Basophils % (auto) 0.6 %; Eosinophils # (auto) 0.12 K/uL (0-0.5); Eosinophils % (auto) 2.6 %; Hematocrit (blood only) 28.9 % (37-47); Hemoglobin 9.4 g/dL (12.0-16.0); Immature Granulocytes # (auto) 0.02 K/uL (0.00-0.02); Immature Granulocytes % (auto) 0.4 %; Lymphocytes # (auto) 0.59 K/uL (1.2-3.4); Lymphocytes % (auto) 12.7 %; Mean Corpuscular Hemoglobin 28.8 pg (25-34); Mean Corpuscular Hgb Conc 32.5 g/dL (32-36); Mean Corpuscular Volume 88.7 fL (80-100); Mean Platelet Volume 10.3 fL (7.4-10.4); Monocytes # (auto) 0.43 K/uL (0.11-0.59); Monocytes % (auto) 9.3 %; Neutrophils # (auto) 3.44 K/uL (1.4-6.5); Neutrophils % (auto) 74.4 %; Platelet Count 170 K/uL (130-400); RDW Coefficient of Variation 15.9 % (11.5-14.5); RDW Standard Deviation 51.9 fL (36.4-46.3); Red Blood Count 3.26 M/uL (4.2-5.4); White Blood Count 4.63 K/uL (4.8-10.8)
[2019-08-04 06:55] LABS: BUN Creatinine Ratio 12.7 (10-20); Calcium 8.1 mg/dl (8.5-10.1); Creatinine Clr Calc Pharmacy 69.1 ml/min; Est GFR (African American) 97.4; Magnesium 1.5 mg/dl (1.8-2.4); Phosphorus 1.8 mg/dl (2.5-4.9); Potassium 3.1 mmol/L (3.5-5.1)
[2019-08-04] MEDS: FLUTICASONE/VILANTEROL 200/25MCG 14 PUFFS/INHALER INH SCH (08:23)
[2019-08-04] MEDS: MAGNESIUM CHLORIDE 64MG DELAYED REL TAB PO SCH ×2 (08:24→20:03)
[2019-08-04] MEDS: PANTOprazole 40 MG TAB PO SCH (08:24)
[2019-08-04] MEDS: METOPROLOL SUCC 25MG EXT REL TAB PO SCH (08:24)
[2019-08-04] MEDS: ATORVASTATIN 40 MG TAB PO SCH (08:24)
[2019-08-04] MEDS: GABAPENTIN 100 MG CAP PO SCH ×3 (08:24→20:02)
[2019-08-04] MEDS: ACYCLOVIR 400 MG TAB PO SCH (08:25)
[2019-08-04] MEDS: ONDANSETRON INJ 2 MG/ML 2 ML VIAL IV PRN (08:25)
[2019-08-04] MEDS: NYSTATIN POWDER 15GM BTL EXT SCH ×2 (08:27→20:03)
[2019-08-04] MEDS ORDERED: POTASSIUM CHLORIDE 20 MEQ TABCR PO STA (09:48)
[2019-08-04] MEDS ORDERED: POTASSIUM PHOS 3 MMOL/1 ML INFUSION IV STA (09:49)
[2019-08-04] MEDS: MAGNESIUM SULFATE / D5W 1 GM/100 ML BAG IV SCH ×2 (10:19→11:12)
[2019-08-04] MEDS ORDERED: POTASSIUM PHOSPHATE 21 MMOL in SODIUM CHLORIDE 0.9% 500 ML IV ONE (10:30)
--- NOTE | 2019-08-04 16:10 | Hospitalist Progress Note ---
Date of Service August 04, 2019 Assessment & Plan (1) Gastroenteritis: (2) Intractable nausea and vomiting: (3) Diarrhea: Complaint of dry hives, nausea and diarrhea for about 1 week Received gentle hydration Tolerated diet today Electrolytes replaced Monitor electrolytes (4) Multiple myeloma: Multiple myeloma with bony metastasis Has been under care of oncologist at [place] Getting acyclovir for suppressive treatment Follow up with Oncology (5) MOHAN (obstructive sleep apnea): Can have her own CPAP machine at night (6) HTN (hypertension): Seems to be controlled (7) Depression with anxiety: Continue current medication (8) Electrolyte imbalance: Possible related to N/V/D K, Mg and phos replaced Continue monitor electrolytes DVT prophylaxis Will not give any pharmacologic anticoagulation due to history of recent psoas muscle hematoma following heparin administration SCDs for now CODE STATUS Disposition Possible discharge tomorrow Subjective Pt was seen and examined Sitting in chair with no distress watching TV Pt said that she was able to tolerated her diet She said that she does not vomit but she does feel a dry hives She said that she probably would feel better if she was able to vomit She said that her diarrhea improves significantly Pt said that she does not want to go to SNF once discharge She wants to go home when discharge Denies any chest pain, palpitation, dizziness and SOB Physical Exam Physical Exam: General- No acute distress, obese Head- atraumatic Eyes- PERRL, EOMI, ENT- oropharynx clear Neck- supple, no JVD Lungs- diminished BS Heart- regular rhythm; no murmur Abdomen- normal bowel sounds, soft, nontender Extremities- no calf tenderness, +edema Neuro- alert, oriented x 3; PERRL, EOMI; no facial palsy; no dysarthria Skin- warm & dry Results & Data ([facility]) Vital Signs (Past 12 Hours) Vital Signs Temp Pulse Resp BP Pulse Ox 08/04/19 15:26 36.5 C 90 18 94/61 L 95 08/04/19 11:34 36.3 C L 98 H 20 102/68 96 08/04/19 07:45 37 C 96 H 20 121/74 92 (1) Diarrhea Diarrhea type: unspecified type Qualified Code(s): R19.7 - Diarrhea, unspecified
[2019-08-04] MEDS: MONTELUKAST SODIUM 10 MG TABLET PO SCH (20:02)
[2019-08-04] MEDS: MIRTAZAPINE TAB 15 MG TAB PO SCH (20:02)
[2019-08-04] MEDS ORDERED: LACTATED RINGER'S 1,000 ML IV ONE (20:13)
[2019-08-04 21:00] LABS: BUN Creatinine Ratio 9.5 (10-20); Calcium 7.9 mg/dl (8.5-10.1); Creatinine Clr Calc Pharmacy 58.7 ml/min; Est GFR (African American) 79.9; Est GFR (Non-African American) 68.9; Magnesium 1.8 mg/dl (1.8-2.4); Potassium 3.7 mmol/L (3.5-5.1)
[2019-08-05 06:47] LABS: Albumin Level 2.2 gm/dl (3.4-5.0); BUN Creatinine Ratio 8.9 (10-20); Calcium 7.7 mg/dl (8.5-10.1); Creatinine Clr Calc Pharmacy 68.2 ml/min; Est GFR (African American) 95.8; Est GFR (Non-African American) 82.7; Magnesium 1.7 mg/dl (1.8-2.4); Potassium 3.5 mmol/L (3.5-5.1)
[2019-08-05 07:03] LABS: Albumin Globulin Ratio 0.9 (0.9-2); Bilirubin,Total 0.3 mg/dl (0.2-1); Globulin 2.5 gm/dl (2.5-4.0); Total Protein 4.7 gm/dl (6.4-8.2)
[2019-08-05] MEDS: FLUTICASONE/VILANTEROL 200/25MCG 14 PUFFS/INHALER INH SCH (07:45)
[2019-08-05] MEDS: MAGNESIUM CHLORIDE 64MG DELAYED REL TAB PO SCH ×2 (07:46→20:36)
[2019-08-05] MEDS: GABAPENTIN 100 MG CAP PO SCH ×3 (07:46→20:36)
[2019-08-05] MEDS: PANTOprazole 40 MG TAB PO SCH (07:46)
[2019-08-05] MEDS: METOPROLOL SUCC 25MG EXT REL TAB PO SCH (07:46)
[2019-08-05] MEDS: ATORVASTATIN 40 MG TAB PO SCH (07:46)
[2019-08-05] MEDS: ACYCLOVIR 400 MG TAB PO SCH (07:47)
[2019-08-05] MEDS: NYSTATIN POWDER 15GM BTL EXT SCH ×2 (07:49→20:37)
[2019-08-05] MEDS ORDERED: MAGNESIUM SULFATE / D5W 1 GM/100 ML BAG IV ONE (08:30)
[2019-08-05] MEDS: TRAMADOL HCL 50 MG TABLET PO PRN (15:56)
--- NOTE | 2019-08-05 17:44 | Hospitalist Progress Note ---
Date of Service August 05, 2019 Assessment & Plan (1) Gastroenteritis: (2) Intractable nausea and vomiting: (3) Diarrhea: Complaint of dry hives, nausea and diarrhea for about 1 week Received gentle hydration Tolerated diet today Electrolytes replaced Monitor electrolytes Clinically improved (4) Multiple myeloma: Multiple myeloma with bony metastasis Has been under care of oncologist at [place] Getting acyclovir for suppressive treatment Follow up with Oncology (5) MOHAN (obstructive sleep apnea): Can have her own CPAP machine at night (6) HTN (hypertension): Seems to be controlled (7) Depression with anxiety: Continue current medication (8) Electrolyte imbalance: Possible related to N/V/D K, Mg and phos replaced Continue monitor electrolytes DVT prophylaxis Will not give any pharmacologic anticoagulation due to history of recent psoas muscle hematoma following heparin administration SCDs for now CODE STATUS Disposition Possible discharge tomorrow (did not have a ride today to go home) Subjective Pt was seen and examined Sitting in chair with no distress Pt said that she tolerated her diet Denies any vomiting today She said that she does not have a ride and clothes to go home today She said that tomorrow her aid will come to get her from the hospital Physical Exam Physical Exam: General- No acute distress, obese Head- atraumatic Eyes- PERRL, EOMI, ENT- oropharynx clear Neck- supple, no JVD Lungs- diminished BS Heart- regular rhythm; no murmur Abdomen- normal bowel sounds, soft, nontender Extremities- no calf tenderness, +edema Neuro- alert, oriented x 3; PERRL, EOMI; no facial palsy; no dysarthria Skin- warm & dry Results & Data ([facility]) Vital Signs (Past 12 Hours) Vital Signs Temp Pulse Resp BP BP Pulse Ox 08/05/19 15:07 36.9 C 86 20 110/68 97 08/05/19 07:51 36.8 C 78 20 113/76 95 (1) Diarrhea Diarrhea type: unspecified type Qualified Code(s): R19.7 - Diarrhea, unspecified
[2019-08-05] MEDS: MONTELUKAST SODIUM 10 MG TABLET PO SCH (20:36)
[2019-08-05] MEDS: MIRTAZAPINE TAB 15 MG TAB PO SCH (20:36)
[2019-08-06] MEDS: GABAPENTIN 100 MG CAP PO SCH ×2 (08:25→13:32)
[2019-08-06] MEDS: ATORVASTATIN 40 MG TAB PO SCH (08:25)
[2019-08-06] MEDS: FLUTICASONE/VILANTEROL 200/25MCG 14 PUFFS/INHALER INH SCH (08:25)
[2019-08-06] MEDS: PANTOprazole 40 MG TAB PO SCH (08:25)
[2019-08-06] MEDS: METOPROLOL SUCC 25MG EXT REL TAB PO SCH (08:25)
[2019-08-06] MEDS: MAGNESIUM CHLORIDE 64MG DELAYED REL TAB PO SCH (08:25)
[2019-08-06] MEDS: ACYCLOVIR 400 MG TAB PO SCH (08:26)
[2019-08-06] MEDS: ONDANSETRON INJ 2 MG/ML 2 ML VIAL IV PRN (08:34)
[2019-08-06] MEDS: NYSTATIN POWDER 15GM BTL EXT SCH (08:35)
[2019-08-06] MEDS ORDERED: SODIUM CHLORIDE 0.65% NA SOLN 45 ML (OCEAN) ONE (08:39)
[2019-08-06 08:43] LABS: BUN Creatinine Ratio 6.9 (10-20); Calcium 8.4 mg/dl (8.5-10.1); Creatinine Clr Calc Pharmacy 63.4 ml/min; Est GFR (African American) 87.2; Est GFR (Non-African American) 75.2; Magnesium 1.6 mg/dl (1.8-2.4); Potassium 3.4 mmol/L (3.5-5.1)
--- NOTE | 2019-08-06 14:44 | Hospitalist Progress Note ---
Date of Service August 06, 2019 Assessment & Plan (1) Gastroenteritis: (2) Intractable nausea and vomiting: (3) Diarrhea: Complaint of dry hives, nausea and diarrhea for about 1 week Received gentle hydration Tolerated diet today Electrolytes replaced Monitor electrolytes Clinically improved (4) Multiple myeloma: Multiple myeloma with bony metastasis Has been under care of oncologist at [place] Getting acyclovir for suppressive treatment Follow up with Oncology (5) MOHAN (obstructive sleep apnea): Can have her own CPAP machine at night (6) HTN (hypertension): Seems to be controlled (7) Depression with anxiety: Continue current medication (8) Electrolyte imbalance: Possible related to N/V/D K, Mg and phos replaced Continue monitor electrolytes DVT prophylaxis Will not give any pharmacologic anticoagulation due to history of recent psoas muscle hematoma following heparin administration SCDs for now CODE STATUS Disposition Possible discharge today with services Subjective Pt was seen and examined Sitting in chair with no distress Denies any chest pain, palpitation and SOB Physical Exam Physical Exam: General- No acute distress, obese Head- atraumatic Eyes- PERRL, EOMI, ENT- oropharynx clear Neck- supple, no JVD Lungs- diminished BS Heart- regular rhythm; no murmur Abdomen- normal bowel sounds, soft, nontender Extremities- no calf tenderness, +edema Neuro- alert, oriented x 3; PERRL, EOMI; no facial palsy; no dysarthria Skin- warm & dry Results & Data ([facility]) Vital Signs (Past 12 Hours) Vital Signs Temp Pulse Pulse Resp BP BP Pulse Ox 08/06/19 13:43 37.0 C 76 86 16 152/86 H 131/77 95 08/06/19 07:35 37.0 C 76 16 131/77 95 08/06/19 03:55 36.9 C 79 20 152/86 H 96 (1) Diarrhea Diarrhea type: unspecified type Qualified Code(s): R19.7 - Diarrhea, unspecified
[2019-08-06] MEDS ORDERED: POTASSIUM CHLORIDE 20 MEQ TABCR PO ONE (15:00)
[2019-08-06] MEDS ORDERED: MAGNESIUM SULFATE / D5W 1 GM/100 ML BAG IV ONE (15:00)
--- NOTE | 2019-08-09 10:27 | Discharge Summary ---
Date of Service August 06, 2019 Admission HPI Per Admitting Provider She is a 68-year-old female with significant past medical history of multiple myeloma on chemotherapy, MOHAN, hypertension, anemia of chronic disease, depression with anxiety, asthma, migraine and hyperlipidemia has been complaining of nausea, vomiting with diarrhea for the last 7 days. This is her second visit to the emergency room in 2 days and she has had been to ER at [facility] for the same reason. She complains to have abdominal discomfort but no definite pain and her main symptoms being nausea she vomited once yesterday and she has been having diarrhea with loose stools 2 times today. She cannot keep anything down due to ongoing nausea and getting dehydrated with dizziness on ambulation. Denies any fever and chills, any cough and or phlegm, any problem with her urine. She was noted to be mildly hypokalemic in the emergency room and her CT scan of the abdomen and pelvis that was done yesterday was fairly unremarkable. Given the ongoing symptoms for the last 1 week she need to stay in the hospital for rehydration and symptomatic management and rule out any significant causes for that. Admission Exam Per Admitting Provider Physical Exam: Lying in bed with mild discomfort secondary to abdominal discomfort and nausea Constitutional: well developed, well nourished, + acute distress (Abdominal discomfort with nausea), + ill appearing and + obese Eyes: PERRL, conjunctivae normal, anicteric sclerae ENMT: external ear and nose normal, oropharynx normal Neck: trachea midline, no thyromegaly Respiratory: normal respiratory effort Auscultation: lungs clear to auscultation bilaterally and + diminished lung sounds Cardiovascular: regular rate and regular rhythm Heart Sounds: no murmur Gastrointestinal Inspection/Auscultation: abdomen normal to inspection and normal bowel sounds Musculoskeletal: No acute arthritis involving any joints Lymphatic: no cervical or axillary lymphadenopathy Principal Diagnosis (1) Gastroenteritis: (2) Intractable nausea and vomiting: (3) Diarrhea: (4) Multiple myeloma (5) MOHAN (obstructive sleep apnea): (6) HTN (hypertension): (7) Depression with anxiety: (8) Electrolyte imbalance: Discharge Exam General- No acute distress, obese Head- atraumatic Eyes- PERRL, EOMI, ENT- oropharynx clear Neck- supple, no JVD Lungs- diminished BS Heart- regular rhythm; no murmur Abdomen- normal bowel sounds, soft, nontender Extremities- no calf tenderness, +edema Neuro- alert, oriented x 3; PERRL, EOMI; no facial palsy; no dysarthria Skin- warm & dry Discharge Data Allergies Allergy/AdvReac Type Severity Reaction Status Date / Time No Known Allergies Allergy Mild ? Unverified 08/08/19 09:15 Consultations 08/03/19 13:58 ED Decision to Admit Stat Ordered Studies XR chest 1V portable CLINICAL HISTORY: cough COMPARISON STUDY: Chest radiograph August 02, 2019 FINDINGS: Lung volumes are mildly diminished. There is no pneumothorax or pleural effusion. There is no consolidation to suggest pneumonia. Cardiac size is normal. Mediastinal contours are unremarkable. Lytic lesions within visualized skeletal structures are noted. IMPRESSION: 1. No acute cardiopulmonary findings. Low lung volumes. 2. Lytic skeletal lesions which suggest multiple myeloma or metastatic disease. ACT 112: Negative or not required by law. Electronically signed by: Foreign Reed M.D. 08/03/2019 12:45 PM Dictated: 08/03/19 1242 Transcribed: 08/03/19 1242 Hospital Course (1) Gastroenteritis: (2) Intractable nausea and vomiting: (3) Diarrhea: Complaint of dry hives, nausea and diarrhea for about 1 week Received gentle hydration Tolerated diet today Electrolytes replaced Monitor electrolytes Clinically improved (4) Multiple myeloma: Multiple myeloma with bony metastasis Has been under care of oncologist at [facility] Getting acyclovir for suppressive treatment Follow up with Oncology (5) MOHAN (obstructive sleep apnea): Can have her own CPAP machine at night (6) HTN (hypertension): Seems to be controlled (7) Depression with anxiety: Continue current medication (8) Electrolyte imbalance: Possible related to N/V/D K, Mg and phos replaced Continue monitor electrolytes DVT prophylaxis Will not give any pharmacologic anticoagulation due to history of recent psoas muscle hematoma following heparin administration SCDs for now CODE STATUS Disposition Possible discharge today with services Total Time Total Time Spent Total Time Spent (In Minutes): 35 minutes Total Time Includes: Examination of the Patient, Discharge Planning, Medication Reconciliation, Communication With Other Providers and Other Discharge Plan Discharge Items Patient Disposition: Home - Home Health Services Reason For Visit: GASTROENTERITIS Discharge Diagnosis: (1) Gastroenteritis: (2) Intractable nausea and vomiting: (3) Diarrhea: (4) Multiple myeloma (5) MOHAN (obstructive sleep apnea): (6) HTN (hypertension): (7) Depression with anxiety: (8) Electrolyte imbalance: Activity: Resume your previous activity Non-emergency contact: Primary Care Provider Call non-emergency contact if: you have any medication questions Follow-up/Referrals: Ahmet Herrera [Primary Care Provider] - Diet: Heart Healthy Addtl Attending Provider Instructions: Please call to schedule a follow up appointment with your primary care provider within 1 week Continue physical and occupational therapy Follow up with your oncology drLuis Maldonado Check BMP and Magnesium level in 1 week fall precaution Pending Studies at Discharge: No Stand-Alone Forms: My [facility] [employer] Smoking Cessation Medications and DC Order Prescriptions: Continued promethazine 25 mg tablet 25 mg PO Q6H PRN (Reason: sedation) Qty: 10 RF: 0 fluoxetine 40 mg capsule 40 mg PO QAM RF: 0 mirtazapine 15 mg tablet 15 mg PO HS RF: 0 gabapentin 100 mg capsule 100 mg PO TID RF: 0 tramadol 50 mg tablet 50 mg PO Q6H PRN (Reason: Pain) RF: 0 atorvastatin 40 mg tablet 40 mg PO QAM RF: 0 acyclovir 400 mg tablet 400 mg PO QAM RF: 0 omeprazole 20 mg capsule,delayed release(DR/EC) 20 mg PO QAM RF: 0 montelukast 10 mg tablet 10 mg PO HS RF: 0 albuterol sulfate 90 mcg/actuation Hfa Aerosol Inhaler 1 puff INHALATION Q6H PRN (Reason: Shortness Of Breath Or Wheezing) RF: 0 ferrous gluconate 324 mg (38 mg iron) Tablet 324 mg PO QAM RF: 0 Breo Ellipta 200-25 mcg/dose blister with device 1 inh INHALATION QAM RF: 0 nystatin [Nystop] 100,000 unit/gram Powder 1 applic EXT BID Qty: 15 RF: 0 magnesium chloride [Mag 64] 64 mg Tablet,Delayed Release (Dr/Ec) 64 mg PO BID Qty: 30 RF: 0 No Action potassium chloride [Klor-Con] 20 mEq Packet 20 meq PO BID RF: 0 metoprolol tartrate 25 mg tablet 12.5 mg PO DAILY RF: 0 prochlorperazine maleate 10 mg tablet 10 mg PO QID PRN (Reason: nausea and vomiting) Qty: 14 RF: 0 famotidine 20 mg tablet 20 mg PO BID Qty: 20 RF: 0 Discharge Orders: Discharge Order (Routine); Ordered 08/06/19 Ordered By: Dilshad Hicks Admission Data Admit Date/Time: 08/03/19 14:30 Attending Provider: Dilshad Hicks Admit Provider: Monisha Emerson Primary Care Provider: Ahmet Herrera Other Providers: Monisha Emerson Other Interventions: Discharge Summary Assessment (RN) Last Done: 08/06/19 13:43 DC Date/Time DO NOT enter until pt leaves facility: 08/06/19 18:40
== END 2019-08-06 18:40 | disposition home health service (06) ==
LOC: ED 11:19 → 4W 11:19 → SUATTDRO 14:30 → 4W 16:53